=== PATIENT | female | born 1930 | race Caucasian/White ===

== ENCOUNTER 2017-02-21 14:49 | Inpatient (IN) | payer MEDICARE, BC, MEDICAID ==
[2017-02-21] MEDS ORDERED: Sodium Chloride 0.9% 10 ML Syringe FLUSH PRN ×2 (15:13→16:30)
[2017-02-21] MEDS ORDERED: Sodium Chloride 0.9% 1,000 ML IV ONE (15:14)
[2017-02-21] MEDS ORDERED: Ondansetron 4 MG/2 ML SDV IVPUSH ONE (15:15)
[2017-02-21] MEDS ORDERED: Pantoprazole 40 MG Vial IVPUSH ONE (15:15)
--- NOTE | 2017-02-21 15:19 | EDM.PDOC ---
ED HPI GENERAL MEDICAL PROBLEM - General Chief Complaint: Abdominal Pain Stated Complaint: DARK COLORED VOMIT Time Seen by Provider: 02/21/17 15:00 Source of Information: Reports: Retirement Records History Limitations: Reports: Other (patient has severe dementia and does not respond appropriately to questioning) - History of Present Illness INITIAL COMMENTS - FREE TEXT/NARRATIVE: 86-year-old female presents for evaluation and treatment of possible hematemesis. History is provided by group home records as the patient has severe dementia and is unable to verbalize appropriately. Reports that she's had 3 episodes of dark brown/red vomiting today. Last bowel movement was yesterday. Reportedly this was a small bowel movement. She has refused all food and medications today. The question if she has some abdominal discomfort. No fevers. Patient is a DNR/DNI. - Related Data Allergies Allergy/AdvReac Type Severity Reaction Status Date / Time hydrocodone Allergy Vomiting Verified 01/10/14 08:33 meperidine [From Demerol] Allergy Cannot Verified 02/21/17 15:11 Remember tramadol Allergy Dizziness Verified 01/10/14 08:33 Home Meds: Home Meds Acetaminophen [Tylenol Extra Strength] 500 mg PO Q4H PRN 01/10/14 [History] Ascorbic Acid [Vitamin C] 500 mg PO DAILY 01/10/14 [History] B2/Vit A,C & E/Lut/Zeaxanth/Mn [Icaps] 1 each PO DAILY 01/10/14 [History] Cholecalciferol (Vitamin D3) [Vitamin D3] 1,000 units PO DAILY 01/10/14 [History ] Cyanocobalamin (Vitamin B12) [Vitamin B12] 1,000 mcg PO DAILY 01/10/14 [History] Ferrous Sulfate [Ferosul] 325 mg PO BID 01/10/14 [History] Gabapentin 1 tab PO DAILY 01/10/14 [History] Propranolol [Inderal] 10 mg PO BID 01/10/14 [History] Citalopram Hydrobromide [Celexa] 20 mg PO BEDTIME 05/09/14 [History] Acetaminophen [Tylenol] 650 mg PO BID 02/21/17 [History] Memantine HCl [Namenda XR] 14 mg PO DAILY 02/21/17 [History] Ondansetron [Zofran ODT] 4 mg PO Q4H PRN 02/21/17 [History] Polyethylene Glycol 3350 [Miralax] 17 gram PO DAILY 02/21/17 [History] Ranitidine HCl [Zantac] 150 mg PO DAILY 02/21/17 [History] Sennosides/Docusate Sodium [Senna-Docusate Sodium] 8.6 - 50 mg PO BID 02/21/17 [ History] Social & Family History - Tobacco Use Smoking Status *Q: Never Smoker Second Hand Smoke Exposure: No - Alcohol Use Days Per Week of Alcohol Use: 0 - Recreational Drug Use Recreational Drug Use: No - Living Situation & Occupation Living situation: Reports: Extended Care Facility ED ROS GENERAL - Review of Systems Review Of Systems: See Below Constitutional: Denies: Fever GI/Abdominal: Reports: Hematemesis (reports natanael/brown emesis x 3 per group home), Nausea, Vomiting (x3 today). Denies: Diarrhea ED EXAM, GI/ABD - Physical Exam Exam: See Below Exam Limited By: Other (patient has severe dementia) General Appearance: Alert, Thin Throat/Mouth: Normal Inspection, Normal Voice, No Airway Compromise Respiratory/Chest: No Respiratory Distress, Lungs Clear, Normal Breath Sounds Cardiovascular: Normal Peripheral Pulses, Regular Rate, Rhythm, No Edema, No Murmur GI/Abdominal: Normal Bowel Sounds, Soft, Tenderness (minor tenderness to palpitation and then by the patient grimacing to the left lower quadrant.). No : Distention Neurological: Alert Psychiatric: Normal Affect, Normal Mood Skin Exam: Warm, Dry, Normal Color Course - Vital Signs Last Recorded V/S: Last Vital Signs Temp 36.1 C 02/21/17 15:03 Pulse 98 02/21/17 17:30 Resp 16 02/21/17 17:30 BP 137/78 02/21/17 17:30 Pulse Ox 97 02/21/17 17:30 - Orders/Labs/Meds Orders: Active Orders 24 hr Category Date Time Status Cardiac Monitoring [RC] . DIRECTED Care 02/21/17 15:17 Active Insert Stovall Catheter [Insert Urinary Catheter] [OM.PC] Care 02/21/17 16:05 Ordered Q24H Peripheral IV Care [RC] . DIRECTED Care 02/21/17 15:13 Active Urinary Catheter Assessment [RC] ASDIRECTED Care 02/21/17 16:22 Active Abdomen 2V AP Flat Upright [CR] Stat Exams 02/21/17 15:15 Taken Chest 1V Frontal [CR] Stat Exams 02/21/17 15:17 Taken CULTURE BLOOD [BC] Stat Lab 02/21/17 16:55 Ordered CULTURE URINE [RM] Stat Lab 02/21/17 16:53 Ordered Sodium Chloride 0.9% [Normal Saline] 1,000 ml Med 02/21/17 15:14 Active IV ONETIME Sodium Chloride 0.9% [Saline Flush] Med 02/21/17 15:13 Active 10 ml FLUSH ASDIRECTED PRN Sodium Chloride 0.9% [Saline Flush] Med 02/21/17 16:30 Active 10 ml FLUSH ONETIME PRN Blood Culture x2 Reflex Set [OM.PC] Stat Oth 02/21/17 16:55 Ordered Peripheral IV Insertion Adult [OM.PC] Routine Oth 02/21/17 15:12 Ordered Medication Orders Sodium Chloride (Normal Saline) 1,000 mls @ 100 mls/hr IV ONETIME ONE Stop: 02/22/17 01:13 Last Admin: 02/21/17 15:45 Dose: 100 mls/hr Sodium Chloride (Saline Flush) 10 ml FLUSH ASDIRECTED PRN PRN Reason: Keep Vein Open Last Admin: 02/21/17 15:00 Dose: 10 ml Sodium Chloride (Saline Flush) 10 ml FLUSH ONETIME PRN PRN Reason: IV FLUSH Labs: Laboratory Tests 02/21/17 02/21/17 02/21/17 Range/Units 15:00 15:00 15:00 WBC 13.96 H (3.98-10.04) K/mm3 RBC 3.94 L (3.98-5.22) M/mm3 Hgb 12.0 (11.2-15.7) gm/L Hct 35.6 (34.1-44.9) % MCV 90.4 (79.4-94.8) fl MCH 30.5 (25.6-32.2) pg MCHC 33.7 (32.2-35.5) g/dl RDW Std Deviation 41.5 (36.4-46.3) fL Plt Count 327 (182-369) K/mm3 MPV 10.7 (9.4-12.3) fl Neut % (Auto) 69.4 (34.0-71.1) % Lymph % (Auto) 22.8 (19.3-51.7) % [place] % (Auto) 7.2 (4.7-12.5) % Eos % (Auto) 0.3 L (0.7-5.8) Baso % (Auto) 0.1 (0.1-1.2) % Neut # (Auto) 9.69 H (1.56-6.13) K/mm3 Lymph # (Auto) 3.18 (1.18-3.74) K/mm3 [place] # (Auto) 1.00 H (0.24-0.36) K/mm3 Eos # (Auto) 0.04 (0.04-0.36) K/mm3 Baso # (Auto) 0.02 (0.01-0.08) K/mm3 Sodium 142 (136-145) mEq/L Potassium 4.3 (3.5-5.1) mEq/L Chloride 104 (98-107) mEq/L Carbon Dioxide 22 (21-32) mEq/L Anion Gap 20.3 H (5-15) BUN 23 H (7-18) mg/dL Creatinine 1.6 H (0.55-1.02) mg/dL Est Cr Clr Drug Dosing 21.65 mL/min Estimated GFR (MDRD) 31 (>60) mL/min BUN/Creatinine Ratio 14.4 (14-18) Glucose 147 H (83-115) mg/dL Lactic Acid (0.4-2.0) mmol/L Calcium 9.7 (8.5-10.1) mg/dL Total Bilirubin 1.0 (0.2-1.0) mg/dL AST 20 (15-37) U/L ALT 36 (14-59) U/L Alkaline Phosphatase 119 H (46-116) U/L C-Reactive Protein 2.2 H* (<1.0) mg/dL B-Natriuretic Peptide 181 H (0-100) pg/mL Total Protein 7.7 (6.4-8.2) g/dl Albumin 4.1 (3.4-5.0) g/dl Globulin 3.6 gm/dL Albumin/Globulin Ratio 1.1 (1-2) Urine Color (Yellow) Urine Appearance (Clear) Urine pH (5.0-8.0) Ur Specific [place] (1.005-1.030) Urine Protein (Negative) Urine Glucose (UA) (Negative) Urine Ketones (Negative) Urine Occult Blood (Negative) Urine Nitrite (Negative) Urine Bilirubin (Negative) Urine Urobilinogen (0.2-1.0) Ur Leukocyte Esterase (Negative) Urine RBC (0-5) /hpf Urine WBC (0-5) /hpf Ur Epithelial Cells Ur Squamous Epith Cells (0-5) /hpf Urine Bacteria (FEW) /hpf Urine Mucus (FEW) /hpf Ketones (0.0-0.3) mM 02/21/17 02/21/17 02/21/17 Range/Units 15:00 16:10 16:43 WBC (3.98-10.04) K/mm3 RBC (3.98-5.22) M/mm3 Hgb (11.2-15.7) gm/L Hct (34.1-44.9) % MCV (79.4-94.8) fl MCH (25.6-32.2) pg MCHC (32.2-35.5) g/dl RDW Std Deviation (36.4-46.3) fL Plt Count (182-369) K/mm3 MPV (9.4-12.3) fl Neut % (Auto) (34.0-71.1) % Lymph % (Auto) (19.3-51.7) % [place] % (Auto) (4.7-12.5) % Eos % (Auto) (0.7-5.8) Baso % (Auto) (0.1-1.2) % Neut # (Auto) (1.56-6.13) K/mm3 Lymph # (Auto) (1.18-3.74) K/mm3 [place] # (Auto) (0.24-0.36) K/mm3 Eos # (Auto) (0.04-0.36) K/mm3 Baso # (Auto) (0.01-0.08) K/mm3 Sodium (136-145) mEq/L Potassium (3.5-5.1) mEq/L Chloride (98-107) mEq/L Carbon Dioxide (21-32) mEq/L Anion Gap (5-15) BUN (7-18) mg/dL Creatinine (0.55-1.02) mg/dL Est Cr Clr Drug Dosing mL/min Estimated GFR (MDRD) (>60) mL/min BUN/Creatinine Ratio (14-18) Glucose (83-115) mg/dL Lactic Acid 2.4 H (0.4-2.0) mmol/L Calcium (8.5-10.1) mg/dL Total Bilirubin (0.2-1.0) mg/dL AST (15-37) U/L ALT (14-59) U/L Alkaline Phosphatase (46-116) U/L C-Reactive Protein (<1.0) mg/dL B-Natriuretic Peptide (0-100) pg/mL Total Protein (6.4-8.2) g/dl Albumin (3.4-5.0) g/dl Globulin gm/dL Albumin/Globulin Ratio (1-2) Urine Color Yellow (Yellow) Urine Appearance Cloudy H (Clear) Urine pH 7.5 (5.0-8.0) Ur Specific [place] 1.020 (1.005-1.030) Urine Protein 2+ H (Negative) Urine Glucose (UA) Negative (Negative) Urine Ketones Negative (Negative) Urine Occult Blood Trace-lysed H (Negative) Urine Nitrite Positive H (Negative) Urine Bilirubin Negative (Negative) Urine Urobilinogen 1.0 (0.2-1.0) Ur Leukocyte Esterase 1+ H (Negative) Urine RBC 0-5 (0-5) /hpf Urine WBC 30-40 H (0-5) /hpf Ur Epithelial Cells Not Reportable Ur Squamous Epith Cells 0-5 (0-5) /hpf Urine Bacteria Many H (FEW) /hpf Urine Mucus Few (FEW) /hpf Ketones 0.25 (0.0-0.3) mM Meds: Medications Generic Name Dose Route Start Last Admin Trade Name Freq PRN Reason Stop Dose Admin Sodium Chloride 1,000 mls @ 100 mls/hr 02/21/17 15:14 02/21/17 15:45 Normal Saline IV 02/22/17 01:13 100 mls/hr ONETIME ONE Administration Sodium Chloride 10 ml 02/21/17 15:13 02/21/17 15:00 Saline Flush FLUSH 10 ml ASDIRECTED PRN Administration Keep Vein Open Sodium Chloride 10 ml 02/21/17 16:30 Saline Flush FLUSH ONETIME PRN IV FLUSH Discontinued Medications Generic Name Dose Route Start Last Admin Trade Name [place] PRN Reason Stop Dose Admin Ceftriaxone Sodium 1 gm/ 100 mls @ 200 mls/hr 02/21/17 17:11 02/21/17 17:39 Sodium Chloride IV 02/21/17 17:40 200 mls/hr ONETIME ONE Administration Iopamidol 100 ml 02/21/17 16:30 Isovue-300 (61%) IVPUSH 02/21/17 16:31 ONETIME ONE Lorazepam 0.5 mg 02/21/17 15:22 02/21/17 15:47 Ativan IVPUSH 02/21/17 15:23 0.5 mg ONETIME ONE Administration Lorazepam 0.5 mg 02/21/17 16:28 02/21/17 16:36 Ativan IVPUSH 02/21/17 16:29 0.5 mg ONETIME ONE Administration Ondansetron HCl 4 mg 02/21/17 15:15 02/21/17 15:55 Zofran IVPUSH 02/21/17 15:16 4 mg ONETIME ONE Administration Pantoprazole Sodium 40 mg 02/21/17 15:15 02/21/17 15:50 Protonix Iv IVPUSH 02/21/17 15:16 40 mg ONETIME ONE Administration - Re-Assessments/Exams Free Text/Narrative Re-Assessment/Exam: 02/21/17 16:20 I spoke with the patient's daughter, Tali at [phone], regarding the patient. At this point it is not clear the exact etiology of her emesis this morning or if there was indeed blood. I reviewed the lab results. Labs: WBC elevated at 13.96, hgb is 12.0 and plts are 327 CRP is 2.2 lactic acid is 2.4 BNP is elevated at 181 We're waiting delay. Discussed further intervention. We could CT her abdomen and pelvis. I am unsure how she will handle this. She has receive 0.5 mg IV Ativan thus far which has significantly calmed her. We could put an NG tube and small amount of saline and confirmed if this was blood. She may require an EGD for further intervention. The daughter does not want her under any sedation. She would like us to proceed with the CT but does not want an NG tube or an EGD at this time. I will call her with an update we receive more information. 02/21/17 18:01 UA has 2+ protein , trace lysed blood, + itrites, 1+ leuks and many bacteria. I reviewed the CT results with the daughter. Her urine has returned and suggest infections. Urine culture sent. Lab was only able to obtain one blood culture. I feel that she has a urinary tract infection which was likely causing the vomiting. She has not vomited since entering the ER and therefore I am unable to confirm if she was vomiting blood earlier. Her daughter would like us to admit for a urinary tract infection and treat with fluids and antibiotics at this time. I spoke with Dr. Crouch regarding the patient, agrees to admission. Will admit to med/surg for dehydration and UTI. Departure - Departure Time of Disposition: 18:56 Disposition: Admitted As Inpatient 68 Condition: poor Clinical Impression: UTI, Urinary tract infectious disease, Dehydration - Discharge Information Forms: ED Department Discharge Additional Instructions: Patient admitted to med/surg for a UTI and dehydration. Dr. Crouch accepting. - My Orders Last 24 Hours: My Active Orders 02/21/17 15:12 Peripheral IV Insertion Adult [OM.PC] Routine 02/21/17 15:13 Peripheral IV Care [RC] . DIRECTED Sodium Chloride 0.9% [Saline Flush] 10 ml FLUSH ASDIRECTED PRN 02/21/17 15:14 Sodium Chloride 0.9% [Normal Saline] 1,000 ml IV ONETIME 02/21/17 15:15 Abdomen 2V AP Flat Upright [CR] Stat 02/21/17 15:17 Cardiac Monitoring [RC] . DIRECTED Chest 1V Frontal [CR] Stat 02/21/17 16:05 Insert Stovall Catheter [Insert Urinary Catheter] [OM.PC] Q24H 02/21/17 16:22 Urinary Catheter Assessment [RC] ASDIRECTED 02/21/17 16:30 Sodium Chloride 0.9% [Saline Flush] 10 ml FLUSH ONETIME PRN 02/21/17 16:53 CULTURE URINE [RM] Stat 02/21/17 16:55 CULTURE BLOOD [BC] Stat Blood Culture x2 Reflex Set [OM.PC] Stat - Assessment/Plan Last 24 Hours: My Active Orders 02/21/17 15:12 Peripheral IV Insertion Adult [OM.PC] Routine 02/21/17 15:13 Peripheral IV Care [RC] . DIRECTED Sodium Chloride 0.9% [Saline Flush] 10 ml FLUSH ASDIRECTED PRN 02/21/17 15:14 Sodium Chloride 0.9% [Normal Saline] 1,000 ml IV ONETIME 02/21/17 15:15 Abdomen 2V AP Flat Upright [CR] Stat 02/21/17 15:17 Cardiac Monitoring [RC] . DIRECTED Chest 1V Frontal [CR] Stat 02/21/17 16:05 Insert Stovall Catheter [Insert Urinary Catheter] [OM.PC] Q24H 02/21/17 16:22 Urinary Catheter Assessment [RC] ASDIRECTED 02/21/17 16:30 Sodium Chloride 0.9% [Saline Flush] 10 ml FLUSH ONETIME PRN 02/21/17 16:53 CULTURE URINE [RM] Stat 02/21/17 16:55 CULTURE BLOOD [BC] Stat Blood Culture x2 Reflex Set [OM.PC] Stat
[2017-02-21] MEDS ORDERED: LORazepam 2 MG/ML MDV IVPUSH ONE ×2 (15:22→16:28)
[2017-02-21] MEDS ORDERED: Iopamidol 612 MG/ML 100 ML Bottle IVPUSH ONE (16:30)
[2017-02-21] MEDS ORDERED: cefTRIAXone 1 GM in Sodium Chloride 0.9% 100 ML IV ONE (17:11)
--- NOTE | 2017-02-21 17:19 | CT ---
CT abdomen and pelvis Technique: Multiple axial sections were obtained from above the dome of the diaphragm inferiorly through the pubic symphysis. Intravenous contrast was utilized. Delayed images were also obtained through the abdomen and pelvis. No oral contrast has been given. Findings: Moderately large hiatal hernia is seen. Slight interstitial fibrosis is noted within the left lung base. Cyst identified within the left lobe of the liver measuring approximately 3.7 cm. Several very minimal low density areas are seen within the right lobe believed to represent very minimal cysts. Spleen is normal. Adrenal glands show no nodule. Cyst identified within the left kidney measuring 7.6 cm. Several smaller cysts are also seen within both kidneys. 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 Delayed images shows contrast within the bladder as well as within nondilated ureters. Pancreas is within normal limits but atrophic. Aorta shows atherosclerotic change which continues into the iliac vessels with no aneurysm. Gallbladder shows no calcified gallstones. No retroperitoneal adenopathy or mesenteric abnormalities are seen. No pelvic mass or adenopathy is seen. Appendix not visualized with certainty. No inflammatory change or free fluid is seen. Bone window settings were reviewed which appear within normal limits for the patient's age. Impression: 1. Cyst within the liver. Cysts within both kidneys. 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 2. Moderately large hiatal hernia. 3. Other incidental findings. Nothing acute is appreciated on CT study of the abdomen and pelvis. Diagnostic code #2
[2017-02-21] MEDS ORDERED: MEMANTINE 14 MG PO SCH (20:15)
--- NOTE | 2017-02-21 20:17 | PCM.HP ---
H&P History of Present Illness - General Date of Service: 02/21/17 Source of Information: Provider History Limitations: Reports: No Limitations - History of Present Illness Initial Comments - Free Text/Narative: 86 year old SNF resident apparently has had at least three episodes of N/V, can not exclude hematemesis. No apparent fever or chills were noted; appears to have associated with abdominal discomfort. Information obtained using EMR, patient could not provide additional information. There has been a lack of appetite. A change in mental status with increasing lethargy. Daughter of the patient requested minimal approach with treatment of UTI and dehydration for now. Does not want a general surgery consult for now re: GI bleed. Onset of Symptoms: Reports: Sudden Symptom Onset Date: 02/21/17 Duration of Symptoms: Reports: Hour(s):, Getting Worse Location: Reports: Abdomen Severity: Moderate Improves with: Reports: None Worsens with: Reports: None Associated Symptoms: Reports: Loss of Appetite, Nausea/Vomiting, Weakness - Related Data Allergies/Adverse Reactions: Allergies Allergy/AdvReac Type Severity Reaction Status Date / Time hydrocodone Allergy Vomiting Verified 01/10/14 08:33 meperidine [From Demerol] Allergy Cannot Verified 02/21/17 15:11 Remember tramadol Allergy Dizziness Verified 01/10/14 08:33 Home Medications: Home Meds Acetaminophen [Tylenol Extra Strength] 500 mg PO Q4H PRN 01/10/14 [History] Ascorbic Acid [Vitamin C] 500 mg PO DAILY 01/10/14 [History] B2/Vit A,C & E/Lut/Zeaxanth/Mn [Icaps] 1 each PO DAILY 01/10/14 [History] Cholecalciferol (Vitamin D3) [Vitamin D3] 1,000 units PO DAILY 01/10/14 [History ] Cyanocobalamin (Vitamin B12) [Vitamin B12] 1,000 mcg PO DAILY 01/10/14 [History] Ferrous Sulfate [Ferosul] 325 mg PO BID 01/10/14 [History] Gabapentin 1 tab PO DAILY 01/10/14 [History] Propranolol [Inderal] 10 mg PO BID 01/10/14 [History] Citalopram Hydrobromide [Celexa] 20 mg PO BEDTIME 05/09/14 [History] Acetaminophen [Tylenol] 650 mg PO BID 02/21/17 [History] Memantine HCl [Namenda XR] 14 mg PO DAILY 02/21/17 [History] Ondansetron [Zofran ODT] 4 mg PO Q4H PRN 02/21/17 [History] Polyethylene Glycol 3350 [Miralax] 17 gram PO DAILY 02/21/17 [History] Ranitidine HCl [Zantac] 150 mg PO DAILY 02/21/17 [History] Sennosides/Docusate Sodium [Senna-Docusate Sodium] 8.6 - 50 mg PO BID 02/21/17 [ History] Past Medical History HEENT History: Reports: Macular Degeneration Cardiovascular History: Reports: Hypertension Gastrointestinal History: Reports: GERD Genitourinary History: Reports: Chronic Renal Insuffiency Psychiatric History: Reports: Anxiety, Dementia, Depression, Other (See Below) Other Psychiatric History: no behavioral disturbances. Hematologic History: Reports: Anemia - Past Surgical History GI Surgical History: Reports: Other (See Below) Other GI Surgeries/Procedures: colitis Social & Family History - Tobacco Use Smoking Status *Q: Never Smoker Second Hand Smoke Exposure: No - Alcohol Use Days Per Week of Alcohol Use: 0 - Recreational Drug Use Recreational Drug Use: No - Living Situation & Occupation Living situation: Reports: Extended Care Facility H&P Review of Systems - Review of Systems: Review Of Systems: See Below General: Reports: Weakness HEENT: Reports: No Symptoms Pulmonary: Reports: No Symptoms Cardiovascular: Reports: Lightheadedness Gastrointestinal: Reports: Abdominal Pain, Decreased Appetite, Nausea, Vomiting Genitourinary: Reports: No Symptoms Musculoskeletal: Reports: No Symptoms Skin: Reports: No Symptoms Psychiatric: Reports: No Symptoms Neurological: Reports: No Symptoms Hematologic/Lymphatic: Reports: No Symptoms Immunologic: Reports: No Symptoms Exam - Exam Exam: See Below - Vital Signs Vital Signs: Last Vital Signs Temp 36.1 C 02/21/17 15:03 Pulse 98 02/21/17 17:30 Resp 16 02/21/17 17:30 BP 137/78 02/21/17 17:30 Pulse Ox 97 02/21/17 17:30 Weight: 63.503 kg - Exam Quality Assessment: Supplemental Oxygen, DVT Prophylaxis General: Sedated HEENT: Nares Patent, Normal Nasal Septum, Pupils Equal, Pupils Reactive, PERRLA Neck: Trachea Midline Lungs: Normal Respiratory Effort, Decreased Breath Sounds Cardiovascular: Regular Rate Abdomen: Normal Bowel Sounds, Soft (Female) Exam: Deferred Rectal (Female) Exam: Deferred Back Exam: Normal Inspection Extremities: Normal Pulses Skin: Warm Neurological: Cranial Nerves Intact Neuro Extensive - Motor, Sensory, Reflexes: CN II-XII Intact - Patient Data Result Diagrams: 02/21/17 15:00 02/21/17 15:00 *Q Meaningful Use (ADM) - VTE *Q VTE Criteria *Q: - Stroke *Q Stroke Criteria *Q: - AMI *Q AMI Criteria *Q: - Problem List (1) Dehydration SNOMED Code(s): 46090600 ICD Code: E86.0 - DEHYDRATION Status: Acute Priority: High Current Visit: Yes (2) UTI, Urinary tract infectious disease SNOMED Code(s): 20414414 ICD Code: N39.0 - URINARY TRACT INFECTION, SITE NOT SPECIFIED Status: Acute Priority: Medium Current Visit: Yes (3) Hyperkalemia SNOMED Code(s): 01520592 ICD Code: E87.5 - HYPERKALEMIA Status: Acute Priority: High Current Visit: No (4) Renal failure syndrome SNOMED Code(s): 50730262 ICD Code: N19 - UNSPECIFIED KIDNEY FAILURE Status: Acute Priority: High Current Visit: No (5) Dementia SNOMED Code(s): 14370758 ICD Code: F03.90 - UNSPECIFIED DEMENTIA WITHOUT BEHAVIORAL DISTURBANCE Status: Chronic Priority: Medium Current Visit: No Onset Date: 05/09/14 Problem List Initiated/Reviewed/Updated: Yes Orders Last 24hrs: Active Orders 24 hr Category Date Time Status Antiembolic Devices [RC] PER UNIT ROUTINE Care 02/21/17 20:13 Ordered Aspiration Precautions [RC] ASDIRECTED Care 02/21/17 20:12 Ordered Bedrest [RC] ASDIRECTED Care 02/21/17 20:12 Ordered Vital Signs [RC] PER UNIT ROUTINE Care 02/21/17 20:11 Ordered NPO [Nothing Per Oral Diet] [DIET] Diet 02/21/17 Dinner Ordered CBC W/O DIFF,HEMOGRAM [HEME] MOTH@0700 Lab 02/23/17 07:00 Ordered CBC W/O DIFF,HEMOGRAM [HEME] MOTH@0700 Lab 02/27/17 07:00 Ordered CBC W/O DIFF,HEMOGRAM [HEME] MOTH@0700 Lab 03/02/17 07:00 Ordered CBC W/O DIFF,HEMOGRAM [HEME] MOTH@0700 Lab 03/06/17 07:00 Ordered CBC W/O DIFF,HEMOGRAM [HEME] MOTH@0700 Lab 03/09/17 07:00 Ordered CBC W/O DIFF,HEMOGRAM [HEME] MOTH@0700 Lab 03/13/17 07:00 Ordered Citalopram Hydrobromide [Celexa] Med 02/21/17 21:00 Ordered 20 mg PO BEDTIME Enoxaparin [Lovenox] Med 02/22/17 09:00 Ordered 30 mg SUBCUT DAILY Ferrous Sulfate Med 02/21/17 21:00 Ordered 325 mg PO BID Gabapentin [Neurontin] Med 02/22/17 09:00 Ordered 1 tab PO DAILY Memantine HCl Med 02/21/17 20:15 Ordered 14 mg PO DAILY Pantoprazole [ProTONIX IV] Med 02/21/17 20:15 Ordered 40 mg IVPUSH Q12H Propranolol [Inderal] Med 02/21/17 21:00 Ordered 10 mg PO BID MILO Hose [Antiembolic Hose] [OM.PC] Routine Oth 02/21/17 20:13 Ordered Code Status [Resuscitation Status] Routine Resus Stat 02/21/17 20:12 Ordered Medication Orders Enoxaparin Sodium (Lovenox) 30 mg SUBCUT DAILY ANKUR Ferrous Sulfate (Ferrous Sulfate) 325 mg PO BID ANKUR Gabapentin (Neurontin) mg PO DAILY ANKUR Sodium Chloride (Normal Saline) 1,000 mls @ 100 mls/hr IV ONETIME ONE Stop: 02/22/17 01:13 Last Admin: 02/21/17 15:45 Dose: 100 mls/hr Non-Formulary Medication (Memantine Hcl) 14 mg PO DAILY ANKUR Non-Formulary Medication (Citalopram Hydrobromide [Celexa]) 20 mg PO BEDTIME ANKUR Pantoprazole Sodium (Protonix Iv) 40 mg IVPUSH Q12H ANKUR Propranolol HCl (Inderal) 10 mg PO BID ANKUR Sodium Chloride (Saline Flush) 10 ml FLUSH ASDIRECTED PRN PRN Reason: Keep Vein Open Last Admin: 02/21/17 15:00 Dose: 10 ml Sodium Chloride (Saline Flush) 10 ml FLUSH ONETIME PRN PRN Reason: IV FLUSH Assessment/Plan Comment:: Impression: AMS with history of dementia AUTI Dehydration CKD, stage III-IV Abdominal pain with episodes of nausea, emesis is unknown, presumed to be coffee ground based on history. Plan: Continue IVF Protonix NGT if needed, will keep NPO except meds and ice chips Declines Gen Surg eval at this time Continue Rocephin UC/BC are pending SW/PT/OT as tolerated DVT/GI prophylaxis DNR/DNI LOS expected <96 hours
[2017-02-21] MEDS ORDERED: Acetaminophen Susp 325 MG/10.15 ML UD Cup PO PRN (20:28)
[2017-02-21] MEDS ORDERED: Ondansetron 4 MG/2 ML SDV IVPUSH PRN (20:39)
[2017-02-21] MEDS ORDERED: Promethazine 12.5 MG in Sodium Chloride 0.9% 50 ML IV PRN (20:40)
[2017-02-21] MEDS ORDERED: Sodium Chloride 0.9% 1,000 ML IV SCH (20:45)
[2017-02-21] MEDS: Pantoprazole 40 MG Vial IVPUSH SCH (21:00)
[2017-02-21] MEDS: Ferrous Sulfate 325 MG Tab PO SCH (22:28)
[2017-02-21] MEDS: Citalopram 20 MG Tab PO SCH (22:28)
[2017-02-21] MEDS: Propranolol 10 MG Tab PO SCH (22:28)
[2017-02-22] MEDS: Sodium Chloride 0.9% 1,000 ML IV SCH ×2 (02:38→15:26)
--- NOTE | 2017-02-22 08:07 | CR ---
Abdomen: Supine and decubitus views of the abdomen were obtained. Comparison: Previous abdominal x-ray of 05/11/14. Bowel gas pattern is normal. Mild compression deformity is noted within L4 which is an interval change from prior abdominal x-ray. Calcifications within the pelvis are likely due to phleboliths. Bony structures are osteoporotic. Impression: 1. Mild compression deformity of L4 which is an interval change from prior abdominal x-ray. 2. Osteopenia. Normal-appearing bowel gas pattern with no free air. Diagnostic code #3
--- NOTE | 2017-02-22 08:07 | CR ---
Chest: Portable view of the chest was obtained. Comparison: Previous chest x-ray of 05/13/14. Heart size is slightly prominent with left ventricular configuration. Mild tortuosity of the thoracic aorta is seen. Lungs are clear. Mild scoliosis is present within the spine. Bony structures are osteopenic. Impression: 1. Incidental findings as noted above. Nothing acute is appreciated on portable chest x-ray. Diagnostic code #2
--- NOTE | 2017-02-22 08:52 | PCM.PN ---
- General Info Date of Service: 02/22/17 Subjective Update: Follow Up Functional Status: Reports: pain controlled, urinating. Denies: ambulating, new symptoms - Review of Systems General: Denies: Fever, Chills HEENT: Denies: contact lenses Pulmonary: Denies: shortness of breath, pleuritic chest pain Cardiovascular: Denies: No Symptoms, Chest Pain, Palpitations Gastrointestinal: Reports: Difficulty swallowing (has underlying dysphagia). Denies: Abdominal pain, Nausea, Vomiting Genitourinary: Reports: no symptoms Musculoskeletal: Reports: no symptoms Skin: Denies: cyanosis, diaphoresis, bruising, pruritis Neurological: Reports: Confusion, Pre-Existing Deficit. Denies: Difficulty Walking, Weakness, Gait Disturbance Psychiatric: Denies: depression, anxiety, agitation Systems Review Comment:: No overnight or acute issues. Her UA cx shows a GNR organism. She has no acute issues. She is hypotensive this am with a BP of 85/46 mmHg. She is afebrile. - Patient Data Vitals - most recent: Last Vital Signs Temp 36.7 C 02/22/17 08:26 Pulse 59 L 02/22/17 08:26 Resp 14 02/22/17 08:26 BP 85/46 L 02/22/17 08:26 Pulse Ox 100 02/22/17 08:26 Weight - most recent: 47.763 kg I&O - last 24 hours: Intake & Output 02/21/17 02/22/17 02/22/17 22:59 06:59 14:59 Intake Total 1122 Balance 1122 Lab Results last 24 hrs: Laboratory Results - last 24 hr 02/21/17 02/22/17 Range/Units 22:45 05:57 Sodium 142 (136-145) mEq/L Potassium 3.8 (3.5-5.1) mEq/L Chloride 109 H (98-107) mEq/L Carbon Dioxide 22 (21-32) mEq/L Anion Gap 14.8 (5-15) BUN 20 H (7-18) mg/dL Creatinine 1.3 H (0.55-1.02) mg/dL Est Cr Clr Drug Dosing 24.29 mL/min Estimated GFR (MDRD) 39 (>60) mL/min BUN/Creatinine Ratio 15.4 (14-18) Glucose 102 (83-115) mg/dL Calcium 8.4 L (8.5-10.1) mg/dL Magnesium 1.9 (1.8-2.4) mg/dl Troponin I < 0.017 (0.00-0.056) ng/mL C-Reactive Protein 1.8 H* (<1.0) mg/dL Triglycerides 145 (<150) mg/dL Cholesterol 129 (<200) mg/dL LDL Cholesterol Direct 68 (<100) mg/dL HDL Cholesterol 44.0 (40-59) mg/dL TSH 3rd Generation 1.199 (0.358-3.74) uIU/mL MRSA (PCR) Negative Med Orders - Current: Current Medications Acetaminophen (Tylenol Solution) 650 mg PO Q6H PRN PRN Reason: Fever Citalopram Hydrobromide (Celexa) 20 mg PO BEDTIME [facility] Last Admin: 02/21/17 22:28 Dose: Not Given Enoxaparin Sodium (Lovenox) 30 mg SUBCUT DAILY [facility] Ferrous Sulfate (Ferrous Sulfate) 325 mg PO BID [facility] Last Admin: 02/21/17 22:28 Dose: Not Given Gabapentin (Neurontin) 600 mg PO DAILY [facility] Ceftriaxone Sodium 1 gm/ (Sodium Chloride) 100 mls @ 200 mls/hr IV Q24H [facility] Promethazine HCl 12.5 mg/ (Sodium Chloride) 50.5 mls @ 100 mls/hr IV Q6H PRN PRN Reason: Nausea/Vomiting Sodium Chloride (Normal Saline) 1,000 mls @ 75 mls/hr IV ASDIRECTED [facility] Last Admin: 02/22/17 02:38 Dose: 75 mls/hr Memantine Extended (Release 14mg) 14 mg PO DAILY [facility] Last Admin: 02/21/17 22:27 Dose: Not Given Ondansetron HCl (Zofran) 4 mg IVPUSH Q8H PRN PRN Reason: Nausea/Vomiting Pantoprazole Sodium (Protonix Iv) 40 mg IVPUSH Q12H [facility] Last Admin: 02/21/17 21:00 Dose: 40 mg Propranolol HCl (Inderal) 10 mg PO BID [facility] Last Admin: 02/21/17 22:28 Dose: Not Given Sodium Chloride (Saline Flush) 10 ml FLUSH ASDIRECTED PRN PRN Reason: Keep Vein Open Last Admin: 02/21/17 15:00 Dose: 10 ml Discontinued Medications Sodium Chloride (Normal Saline) 1,000 mls @ 100 mls/hr IV ONETIME ONE Stop: 02/22/17 01:13 Last Admin: 02/21/17 15:45 Dose: 100 mls/hr Ceftriaxone Sodium 1 gm/ (Sodium Chloride) 100 mls @ 200 mls/hr IV ONETIME ONE Stop: 02/21/17 17:40 Last Admin: 02/21/17 17:39 Dose: 200 mls/hr Sodium Chloride (Normal Saline) 800 mls @ 100 mls/hr IV ASDIRECTED [facility] Stop: 02/21/17 23:13 Iopamidol (Isovue-300 (61%)) 100 ml IVPUSH ONETIME ONE Stop: 02/21/17 16:31 Last Admin: 02/21/17 20:19 Dose: Not Given Lorazepam (Ativan) 0.5 mg IVPUSH ONETIME ONE Stop: 02/21/17 15:23 Last Admin: 02/21/17 15:47 Dose: 0.5 mg Lorazepam (Ativan) 0.5 mg IVPUSH ONETIME ONE Stop: 02/21/17 16:29 Last Admin: 02/21/17 16:36 Dose: 0.5 mg Ondansetron HCl (Zofran) 4 mg IVPUSH ONETIME ONE Stop: 02/21/17 15:16 Last Admin: 02/21/17 15:55 Dose: 4 mg Pantoprazole Sodium (Protonix Iv) 40 mg IVPUSH ONETIME ONE Stop: 02/21/17 15:16 Last Admin: 02/21/17 15:50 Dose: 40 mg Sodium Chloride (Saline Flush) 10 ml FLUSH ONETIME PRN PRN Reason: IV FLUSH - Exam Quality Assessment: No: supplemental oxygen General: alert, no acute distress HEENT: Pupils equal, Pupils reactive Neck: supple, trachea midline, no JVD, no thyromegaly Lungs: Clear to auscultation, Normal respiratory effort, Decreased breath sounds Cardiovascular: Regular Rate Abdomen: bowel sounds present, soft, no tenderness, no distension (Female) Exam: Deferred Back Exam: Normal Inspection, Decreased Range of Motion Extremities: no edema, normal pulses, no tenderness/swelling, no clubbing, no cyanosis, no calf tenderness Peripheral Pulses: 2+: Dorsalis Pedis (L), Dorsalis Pedis (R) Skin: warm, dry, intact Neurological: no new focal deficit Psy/Mental Status: alert, normal affect, normal mood - Problem List Review Problem List Initiated/Reviewed/Updated: Yes - Plan Plan:: Assessment/Plan: Acute: AMS with history of Severe Dementia - She seems to be at baseline AUTI - Risk factor: Urinary Incontinence - UA cx pos for GNR - She is responding to treatment - CRP is 1.7 (2.2) - Continue current treatment with IV Rocephin Moderately Large Hiatal Hernia - She is currently on IV Protonix BID - She was on H2B for home maintenance, will resume Hypotension - 85/46 mmHg this am - She appears clinically stable CT scan Abdominal/Pelvic Findings - Cysts in Liver and Kidneys Resolved: S/p Dehydration S/p Coffee Ground Emesis with Gastritis/GERD as risk factors, family refused any further work up to include possible EGD Chronic: HTN CKD, Stage III Anxiety and Depression JIN Hx/o Gastritis Severe Dementia Urinary Incontinence Non-Verbal Hx/o Gastritis/GERD Vit D Deficiency Constipation Dysphagia 3 Plan: She appears clinically stable and comfortable [employer]ER eval for swallowing Resume po meal after above eval Family declines Gen Surg eval at this time Continue current treatment Repeat manual BP, if remains low consider volume resuscitative measures BB with parameters PT/OT as tolerated DVT/GI prophylaxis Code status: DNR/DNI D/c pending identification of UA culture and sensitivity
[2017-02-22] MEDS ORDERED: Sodium Chloride 0.9% 10 ML Syringe FLUSH PRN (09:41)
[2017-02-22] MEDS ORDERED: Iopamidol 612 MG/ML 100 ML Bottle IVPUSH ONE (09:45)
[2017-02-22] MEDS: Enoxaparin 30 MG/0.3 ML Syringe SUBCUT SCH (10:01)
[2017-02-22] MEDS: Pantoprazole 40 MG Vial IVPUSH SCH ×2 (10:01→20:31)
[2017-02-22] MEDS: Ferrous Sulfate 325 MG Tab PO SCH ×3 (10:02→20:40)
[2017-02-22] MEDS: Propranolol 10 MG Tab PO SCH ×3 (10:02→20:40)
[2017-02-22] MEDS: Gabapentin 600 MG Tab PO SCH ×2 (10:02→10:33)
[2017-02-22] MEDS: cefTRIAXone 1 GM in Sodium Chloride 0.9% 100 ML IV SCH (15:25)
[2017-02-22] MEDS: Citalopram 20 MG Tab PO SCH (20:40)
[2017-02-23] MEDS: Sodium Chloride 0.9% 1,000 ML IV SCH ×2 (04:33→17:50)
--- NOTE | 2017-02-23 05:11 | PCM.PN ---
- General Info Date of Service: 02/23/17 Subjective Update: Follow Up Functional Status: Reports: pain controlled, urinating. Denies: tolerating diet , ambulating, new symptoms - Review of Systems General: Denies: Fever, Chills HEENT: Reports: no symptoms Pulmonary: Denies: shortness of breath Cardiovascular: Denies: Chest Pain Gastrointestinal: Denies: Abdominal pain, Nausea, Vomiting Genitourinary: Reports: no symptoms Musculoskeletal: Reports: no symptoms Skin: Reports: no symptoms Neurological: Reports: Confusion, Difficulty Walking, Weakness, Gait Disturbance Psychiatric: Denies: depression, anxiety, agitation, hallucinations Systems Review Comment:: No overnight or acute issues. She is refusing all her pills, and [employer]PER[employer]ENT eval. She carries a severe form of dementia. She is afebrile w/o leukocytosis. Her UA shows E. coli sensitive to Rocephin. - Patient Data Vitals - most recent: Last Vital Signs Temp 36.8 C 02/23/17 02:05 Pulse 66 02/23/17 02:05 Resp 18 02/23/17 02:05 BP 121/53 L 02/23/17 02:05 Pulse Ox 97 02/23/17 02:05 Weight - most recent: 47.4 kg I&O - last 24 hours: Intake & Output 02/22/17 02/22/17 02/23/17 14:59 22:59 06:59 Intake Total 1000 966 Balance 1000 966 Lab Results last 24 hrs: Laboratory Results - last 24 hr 02/22/17 Range/Units 05:57 Sodium 142 (136-145) mEq/L Potassium 3.8 (3.5-5.1) mEq/L Chloride 109 H (98-107) mEq/L Carbon Dioxide 22 (21-32) mEq/L Anion Gap 14.8 (5-15) BUN 20 H (7-18) mg/dL Creatinine 1.3 H (0.55-1.02) mg/dL Est Cr Clr Drug Dosing 24.29 mL/min Estimated GFR (MDRD) 39 (>60) mL/min BUN/Creatinine Ratio 15.4 (14-18) Glucose 102 (83-115) mg/dL Calcium 8.4 L (8.5-10.1) mg/dL Magnesium 1.9 (1.8-2.4) mg/dl Troponin I < 0.017 (0.00-0.056) ng/mL C-Reactive Protein 1.8 H* (<1.0) mg/dL Triglycerides 145 (<150) mg/dL Cholesterol 129 (<200) mg/dL LDL Cholesterol Direct 68 (<100) mg/dL HDL Cholesterol 44.0 (40-59) mg/dL TSH 3rd Generation 1.199 (0.358-3.74) uIU/mL Med Orders - Current: Current Medications Acetaminophen (Tylenol Solution) 650 mg PO Q6H PRN PRN Reason: Fever Citalopram Hydrobromide (Celexa) 20 mg PO BEDTIME [facility] Last Admin: 02/22/17 20:40 Dose: Not Given Enoxaparin Sodium (Lovenox) 30 mg SUBCUT DAILY [facility] Last Admin: 02/22/17 10:01 Dose: 30 mg Famotidine (Pepcid) 20 mg PO DAILY [facility] Ferrous Sulfate (Ferrous Sulfate) 325 mg PO BID [facility] Last Admin: 02/22/17 20:40 Dose: Not Given Gabapentin (Neurontin) 600 mg PO DAILY [facility] Last Admin: 02/22/17 10:33 Dose: Not Given Ceftriaxone Sodium 1 gm/ (Sodium Chloride) 100 mls @ 200 mls/hr IV Q24H [facility] Last Admin: 02/22/17 15:25 Dose: 200 mls/hr Promethazine HCl 12.5 mg/ (Sodium Chloride) 50.5 mls @ 100 mls/hr IV Q6H PRN PRN Reason: Nausea/Vomiting Sodium Chloride (Normal Saline) 1,000 mls @ 75 mls/hr IV ASDIRECTED [facility] Last Admin: 02/23/17 04:33 Dose: 75 mls/hr Memantine Extended (Release 14mg) 14 mg PO DAILY [facility] Last Admin: 02/21/17 22:27 Dose: Not Given Ondansetron HCl (Zofran) 4 mg IVPUSH Q8H PRN PRN Reason: Nausea/Vomiting Pantoprazole Sodium (Protonix Iv) 40 mg IVPUSH Q12H [facility] Last Admin: 02/22/17 20:31 Dose: 40 mg Propranolol HCl (Inderal) 10 mg PO BID [facility] Last Admin: 02/22/17 20:40 Dose: Not Given Sodium Chloride (Saline Flush) 10 ml FLUSH ASDIRECTED PRN PRN Reason: Keep Vein Open Last Admin: 02/21/17 15:00 Dose: 10 ml Discontinued Medications Sodium Chloride (Normal Saline) 1,000 mls @ 100 mls/hr IV ONETIME ONE Stop: 02/22/17 01:13 Last Admin: 02/21/17 15:45 Dose: 100 mls/hr Ceftriaxone Sodium 1 gm/ (Sodium Chloride) 100 mls @ 200 mls/hr IV ONETIME ONE Stop: 02/21/17 17:40 Last Admin: 02/21/17 17:39 Dose: 200 mls/hr Sodium Chloride (Normal Saline) 800 mls @ 100 mls/hr IV ASDIRECTED [facility] Stop: 02/21/17 23:13 Iopamidol (Isovue-300 (61%)) 100 ml IVPUSH ONETIME ONE Stop: 02/21/17 16:31 Last Admin: 02/21/17 20:19 Dose: Not Given Iopamidol (Isovue-300 (61%)) 100 ml IVPUSH ONETIME ONE Stop: 02/22/17 09:46 Last Admin: 02/21/17 17:00 Dose: 80 ml Lorazepam (Ativan) 0.5 mg IVPUSH ONETIME ONE Stop: 02/21/17 15:23 Last Admin: 02/21/17 15:47 Dose: 0.5 mg Lorazepam (Ativan) 0.5 mg IVPUSH ONETIME ONE Stop: 02/21/17 16:29 Last Admin: 02/21/17 16:36 Dose: 0.5 mg Ondansetron HCl (Zofran) 4 mg IVPUSH ONETIME ONE Stop: 02/21/17 15:16 Last Admin: 02/21/17 15:55 Dose: 4 mg Pantoprazole Sodium (Protonix Iv) 40 mg IVPUSH ONETIME ONE Stop: 02/21/17 15:16 Last Admin: 02/21/17 15:50 Dose: 40 mg Sodium Chloride (Saline Flush) 10 ml FLUSH ONETIME PRN PRN Reason: IV FLUSH Sodium Chloride (Saline Flush) 10 ml FLUSH ONETIME PRN PRN Reason: IV FLUSH Stop: 02/22/17 11:00 Last Admin: 02/21/17 17:05 Dose: 10 ml - Exam General: alert, no acute distress HEENT: Pupils equal, Pupils reactive Lungs: Clear to auscultation, Normal respiratory effort Cardiovascular: Regular Rate, Regular Rhythm Abdomen: bowel sounds present, soft, no tenderness, no distension (Female) Exam: Deferred Back Exam: Normal Inspection, Decreased Range of Motion Extremities: no edema, normal pulses, no tenderness/swelling, no clubbing, no cyanosis, no calf tenderness Peripheral Pulses: 2+: Dorsalis Pedis (L), Dorsalis Pedis (R) Skin: warm, dry, intact Neurological: no new focal deficit Psy/Mental Status: alert, normal affect, normal mood - Problem List Review Problem List Initiated/Reviewed/Updated: Yes - My Orders Last 24 Hours: My Active Orders 02/22/17 11:59 Consult to Speech Language Pathology [[employer]PER[employer]ENDENT Evaluation and Treatment] [CONS] Routine 02/23/17 09:00 Famotidine [Pepcid] 20 mg PO DAILY - Plan Plan:: Assessment/Plan: Acute: AMS with history of Severe Dementia - She seems to be at baseline AUTI - Risk factor: Urinary Incontinence - UA cx pos for E. coli - She is responding to treatment - CRP is 1.7 (2.2) - Continue current treatment with IV Rocephin Moderately Large Hiatal Hernia - She is currently on IV Protonix BID - She was on H2B for home maintenance, will resume Anemia - Hgb 12 ---> 9.4 - This could be 2/2 Hemodilution - Again, family is refusing further GI work up CT scan Abdominal/Pelvic Findings - Cysts in Liver and Kidneys Resolved: S/p Dehydration S/p Coffee Ground Emesis with Gastritis/GERD as risk factors, family refused any further work up to include possible EGD S/p Hypotension - 85/46 mmHg this am - She appears clinically stable Chronic: HTN CKD, Stage III Anxiety and Depression JIN Hx/o Gastritis Severe Dementia Urinary Incontinence Non-Verbal Hx/o Gastritis/GERD Vit D Deficiency Constipation Dysphagia 3 Plan: She remains clinically stable and comfortable [employer]PER[employer]ENDENT eval for swallowing Resume po meal after above eval Continue current treatment PT/OT as tolerated DVT/GI prophylaxis Code status: DNR/DNI Possible discharge in 1-2 days
[2017-02-23] MEDS: Pantoprazole 40 MG Vial IVPUSH SCH ×2 (08:42→20:02)
[2017-02-23] MEDS: Enoxaparin 30 MG/0.3 ML Syringe SUBCUT SCH (08:43)
[2017-02-23] MEDS: Propranolol 10 MG Tab PO SCH ×2 (08:43→20:02)
[2017-02-23] MEDS: Ferrous Sulfate 325 MG Tab PO SCH ×2 (08:43→20:03)
[2017-02-23] MEDS: Gabapentin 600 MG Tab PO SCH (08:43)
[2017-02-23] MEDS: Famotidine 20 MG Tab PO SCH (08:43)
[2017-02-23] MEDS ORDERED: Potassium Chloride 10% 20 MEQ/15 ML Soln 30 ML UD Cup PO SCH (09:00)
[2017-02-23] MEDS ORDERED: Magnesium Sulfate/Water 2 GM in Premix Bag 1 BAG IV ONE (09:00)
[2017-02-23] MEDS: Potassium Chloride 10 MEQ in Premix Bag 1 BAG IV SCH ×2 (13:35→16:23)
[2017-02-23] MEDS: cefTRIAXone 1 GM in Sodium Chloride 0.9% 100 ML IV SCH (16:03)
[2017-02-23] MEDS: Citalopram 20 MG Tab PO SCH (20:03)
[2017-02-23] MEDS: Dextrose 5%-0.9% NaCl 1,000 ML IV SCH (22:45)
[2017-02-24] MEDS: Propranolol 10 MG Tab PO SCH (08:08)
[2017-02-24] MEDS: Ferrous Sulfate 325 MG Tab PO SCH (08:08)
[2017-02-24] MEDS: Gabapentin 600 MG Tab PO SCH (08:08)
[2017-02-24] MEDS: Famotidine 20 MG Tab PO SCH (08:08)
[2017-02-24] MEDS: Potassium Chloride 10 MEQ in Premix Bag 1 BAG IV SCH ×6 (08:13→13:46)
[2017-02-24] MEDS: Enoxaparin 30 MG/0.3 ML Syringe SUBCUT SCH (08:17)
[2017-02-24 10:33] VITALS: BP 92/47
--- NOTE | 2017-02-24 10:34 | PCM.DCSUM1 ---
Discharge Summary - Hospital Course Brief History: This is an 86-year-old white female with past medical history of advanced dementia, iron deficiency anemia, hypertension, chronic diarrhea, gastritis, GERD, urinary urinary incontinence, generalized pain, anxiety, depression, and vitamin C deficiency, who comes in to the emergency department with complains of 3 episode of coffee ground emesis associated with worsening mental status and was found to have urinary tract infection. - Discharge Data Discharge Date: 02/24/17 [place]charge Dis[place] [address] Condition: Good - Discharge Diagnosis/Problem(s) (1) UTI, Urinary tract infectious disease SNOMED Code(s): 56471679 ICD Code: N39.0 - URINARY TRACT INFECTION, SITE NOT SPECIFIED Status: Acute Priority: Medium (2) Hiatal hernia with gastroesophageal reflux SNOMED Code(s): 391376376 ICD Code: K21.9 - GASTRO-ESOPHAGEAL REFLUX DISEASE WITHOUT ESOPHAGITIS; K44.9 - DIAPHRAGMATIC HERNIA WITHOUT OBSTRUCTION OR GANGRENE Status: Chronic (3) Dementia SNOMED Code(s): 46903327 ICD Code: F03.90 - UNSPECIFIED DEMENTIA WITHOUT BEHAVIORAL DISTURBANCE Status: Chronic Priority: Medium Onset Date: 05/09/14 (4) Anemia SNOMED Code(s): 095213206 ICD Code: D64.9 - ANEMIA, UNSPECIFIED Status: Acute Qualifiers: Anemia type: iron deficiency Iron deficiency anemia type: unspecified iron deficiency Qualified Code(s): D50.9 - Iron deficiency anemia, unspecified (5) Coffee ground emesis SNOMED Code(s): 499760244, 671135952 ICD Code: K92.0 - HEMATEMESIS Status: Resolved (6) Dehydration SNOMED Code(s): 10271509 ICD Code: E86.0 - DEHYDRATION Status: Resolved Priority: High (7) Comfort measures only status SNOMED Code(s): 12818485078997 ICD Code: Z51.5 - ENCOUNTER FOR PALLIATIVE CARE Status: Acute - Patient Summary/Data Operative Procedure(s) Performed: None Complications: None Consults: Consultations 02/22/17 09:00 Consult to Portfolio Administrator [CONS] Routine OT Evaluation and Treatment [CONS] Routine PT Evaluation and Treatment [CONS] Routine 02/22/17 11:59 Consult to Speech Language Pathology [NIGHT [facility] MAGISTRATE Evaluation and Treatment] [CONS] Routine Recommended Follow-up Testing/Procedures: BMP and Mg next week for e-lyte abnormality Hospital Course: Patient was primarily admitted for medical management of urinary tract infection along with dehydration. She was provided supportive care and appropriate antibiotic. Blood culture was negative for any organism growth. However her urine was positive for UTI and she grew Escherichia coli on her culture. Once her sensitivity came back, her antibiotic was then descalated. She will be discharged with additional course to complete her treatment. As for her coffee-ground emesis, patient carried a history of iron deficiency anemia with chronic gastritis and peptic ulcers disease. However her daughter deferred any further workup related to her anemia. Her hospital course was uncomplicated. However in the setting of her severe dementia the patient refused to eat and take her scheduled pills. Speech language pathologist was consulted to assess her swallowing. Multiple attempts were tried unfortunately without any success. Patient had suffered dehydration along with electrolyte imbalances due to poor oral intake. We discussed this with her daughter, and finally on the day of discharge, she was made comfort care only. Patient is now ready for discharge. Her vitals are stable. However her overall prognosis remains poor in the setting of her advanced dementia. PEG tube placement was offered her daughter refused any kind of interventions. Therefore she will now be discharged back to local senior care. Her primary care physician has been contacted and discharge care plan was conveyed to him. At this point the patient will now be comfort care measures. Comfort care orders will be done by her primary care physician as soon as she gets to the facility. - Patient Instructions Diet: Usual Diet as Tolerated Activity: As Tolerated Driving: Do Not Drive Showering/Bathing: May Shower, No Tub Bathing/Swimming Notify Provider of: Fever, Increased Pain, Nausea and/or Vomiting Other/Special Instructions: - Please take all medication as directed. - BMP and Mg level check next week for electrolyte abnormality. - Keep you follow up appointment with your doctor. - Call your doctor for any questions or concerns - Discharge Plan Prescriptions/Med Rec: Cefuroxime [Ceftin] 250 mg PO BID #6 tablet Lactobacillus Cmb#7/Fos/Inulin [Probiotic Complex Tablet] 1 each PO BID #6 tablet Home Medications: Home Meds Acetaminophen [Tylenol Extra Strength] 500 mg PO Q4H PRN 01/10/14 [History] Ascorbic Acid [Vitamin C] 500 mg PO DAILY 01/10/14 [History] B2/Vit A,C & E/Lut/Zeaxanth/Mn [Icaps] 1 each PO DAILY 01/10/14 [History] Cholecalciferol (Vitamin D3) [Vitamin D3] 1,000 units PO DAILY 01/10/14 [History ] Cyanocobalamin (Vitamin B12) [Vitamin B12] 1,000 mcg PO DAILY 01/10/14 [History] Ferrous Sulfate [Ferosul] 325 mg PO BID 01/10/14 [History] Gabapentin 1 tab PO DAILY 01/10/14 [History] Propranolol [Inderal] 10 mg PO BID 01/10/14 [History] Citalopram Hydrobromide [Celexa] 20 mg PO BEDTIME 05/09/14 [History] Acetaminophen [Tylenol] 650 mg PO BID 02/21/17 [History] Memantine HCl [Namenda XR] 14 mg PO DAILY 02/21/17 [History] Ondansetron [Zofran ODT] 4 mg PO Q4H PRN 02/21/17 [History] Polyethylene Glycol 3350 [Miralax] 17 gram PO DAILY 02/21/17 [History] Ranitidine HCl [Zantac] 150 mg PO DAILY 02/21/17 [History] Sennosides/Docusate Sodium [Senna-Docusate Sodium] 8.6 - 50 mg PO BID 02/21/17 [ History] Cefuroxime [Ceftin] 250 mg PO BID #6 tablet 02/24/17 [Rx] Lactobacillus Cmb#7/Fos/Inulin [Probiotic Complex Tablet] 1 each PO BID #6 tablet 02/24/17 [Rx] Patient Handouts: Urinary Tract Infection, Adult, [id number] Referrals: Mauricio Lauren MD [Primary Care Provider] - - Discharge Summary/Plan Comment DC Time >30 min.: Yes (45 mins) Discharge Summary/Plan Comment: Discharge to local [place] - General Info Date of Service: 02/24/17 Subjective Update: Follow Up Functional Status: Reports: pain controlled. Denies: tolerating diet, ambulating, urinating, new symptoms - Review of Systems General: Denies: Fever, Weakness, Fatigue, Malaise, Chills HEENT: Reports: no symptoms Pulmonary: Denies: shortness of breath Cardiovascular: Denies: Chest Pain Gastrointestinal: Denies: Abdominal pain, Nausea, Vomiting Genitourinary: Reports: no symptoms Musculoskeletal: Reports: no symptoms Skin: Reports: no symptoms Neurological: Reports: Confusion, Pre-Existing Deficit Psychiatric: Denies: depression, anxiety Systems Review Comment: No overnight or acute issues. She is essentially the same. Her UA is pos for E. coli. - Patient Data Vitals - Most Recent: Last Vital Signs Temp 37.0 C 02/24/17 07:35 Pulse 76 02/24/17 08:08 Resp 12 02/24/17 07:35 BP 113/82 02/24/17 08:08 Pulse Ox 95 02/24/17 07:35 Weight - Most Recent: 47.627 kg I&O - Last 24 hours: Intake & Output 02/23/17 02/24/17 02/24/17 22:59 06:59 14:59 Intake Total 1250 351 Balance 1250 351 Lab Results - Last 24 hrs: Laboratory Results - last 24 hr 02/24/17 Range/Units 06:13 Sodium 141 (136-145) mEq/L Potassium 2.9 L (3.5-5.1) mEq/L Chloride 109 H (98-107) mEq/L Carbon Dioxide 18 L (21-32) mEq/L Anion Gap 16.9 H (5-15) BUN 10 (7-18) mg/dL Creatinine 1.1 H (0.55-1.02) mg/dL Est Cr Clr Drug Dosing 28.62 mL/min Estimated GFR (MDRD) 47 (>60) mL/min BUN/Creatinine Ratio 9.1 L (14-18) Glucose 103 (83-115) mg/dL Calcium 8.2 L (8.5-10.1) mg/dL Magnesium 2.1 (1.8-2.4) mg/dl C-Reactive Protein 0.9 (<1.0) mg/dL Med Orders - Current: Current Medications Acetaminophen (Tylenol Solution) 650 mg PO Q6H PRN PRN Reason: Fever Citalopram Hydrobromide (Celexa) 20 mg PO BEDTIME [facility] Last Admin: 02/23/17 20:03 Dose: Not Given Enoxaparin Sodium (Lovenox) 30 mg SUBCUT DAILY [facility] Last Admin: 02/24/17 08:17 Dose: 30 mg Famotidine (Pepcid) 20 mg PO DAILY [facility] Last Admin: 02/24/17 08:08 Dose: Not Given Ferrous Sulfate (Ferrous Sulfate) 325 mg PO BID [facility] Last Admin: 02/24/17 08:08 Dose: Not Given Gabapentin (Neurontin) 600 mg PO DAILY [facility] Last Admin: 02/24/17 08:08 Dose: Not Given Ceftriaxone Sodium 1 gm/ (Sodium Chloride) 100 mls @ 200 mls/hr IV Q24H [facility] Last Admin: 02/23/17 16:03 Dose: 200 mls/hr Promethazine HCl 12.5 mg/ (Sodium Chloride) 50.5 mls @ 100 mls/hr IV Q6H PRN PRN Reason: Nausea/Vomiting Dextrose/Sodium Chloride (Dextrose 5%-Normal Saline) 1,000 mls @ 75 mls[facility] Last Admin: 02/23/17 22:45 Dose: 75 mls/hr Potassium Chloride 10 meq/ (Premix) 100 mls @ 100 mls/hr IV Q1H [facility] Stop: 02/24/17 13:44 Last Admin: 02/24/17 09:35 Dose: 100 mls/hr Magnesium Sulfate (Pharmacy To Dose - Magnesium Replacement) 1 dose .XX ASDIRECTED [facility] Memantine Extended (Release 14mg) 14 mg PO DAILY [facility] Last Admin: 02/21/17 22:27 Dose: Not Given Ondansetron HCl (Zofran) 4 mg IVPUSH Q8H PRN PRN Reason: Nausea/Vomiting Potassium Chloride (Pharmacy To Dose - Potassium Replacement) 1 dose .XX ASDIRECTED [facility] Propranolol HCl (Inderal) 10 mg PO BID [facility] Last Admin: 02/24/17 08:08 Dose: Not Given Discontinued Medications Sodium Chloride (Normal Saline) 1,000 mls @ 100 mls/hr IV ONETIME ONE Stop: 02/22/17 01:13 Last Admin: 02/21/17 15:45 Dose: 100 mls/hr Ceftriaxone Sodium 1 gm/ (Sodium Chloride) 100 mls @ 200 mls/hr IV ONETIME ONE Stop: 02/21/17 17:40 Last Admin: 02/21/17 17:39 Dose: 200 mls/hr Sodium Chloride (Normal Saline) 800 mls @ 100 mls/hr IV ASDIRECTED [facility] Stop: 02/21/17 23:13 Sodium Chloride (Normal Saline) 1,000 mls @ 75 mls/hr IV ASDIRECTED [facility] Last Admin: 02/23/17 17:50 Dose: 75 mls/hr Magnesium Sulfate 2 gm/ Premix 50 mls @ 25 mls/hr IV ONETIME ONE Stop: 02/23/17 10:59 Last Admin: 02/23/17 10:18 Dose: 25 mls/hr Potassium Chloride 10 meq/ (Premix) 100 mls @ 100 mls/hr IV Q1H [facility] Stop: 02/23/17 13:59 Last Admin: 02/23/17 16:23 Dose: 100 mls/hr Iopamidol (Isovue-300 (61%)) 100 ml IVPUSH ONETIME ONE Stop: 02/21/17 16:31 Last Admin: 02/21/17 20:19 Dose: Not Given Iopamidol (Isovue-300 (61%)) 100 ml IVPUSH ONETIME ONE Stop: 02/22/17 09:46 Last Admin: 02/21/17 17:00 Dose: 80 ml Lorazepam (Ativan) 0.5 mg IVPUSH ONETIME ONE Stop: 02/21/17 15:23 Last Admin: 02/21/17 15:47 Dose: 0.5 mg Lorazepam (Ativan) 0.5 mg IVPUSH ONETIME ONE Stop: 02/21/17 16:29 Last Admin: 02/21/17 16:36 Dose: 0.5 mg Ondansetron HCl (Zofran) 4 mg IVPUSH ONETIME ONE Stop: 02/21/17 15:16 Last Admin: 02/21/17 15:55 Dose: 4 mg Pantoprazole Sodium (Protonix Iv) 40 mg IVPUSH ONETIME ONE Stop: 02/21/17 15:16 Last Admin: 02/21/17 15:50 Dose: 40 mg Pantoprazole Sodium (Protonix Iv) 40 mg IVPUSH Q12H [facility] Last Admin: 02/23/17 20:02 Dose: 40 mg Potassium Chloride (Pharmacy To Dose - Potassium Replacement) 1 dose .XX ASDIRECTED [facility] Potassium Chloride (Potassium Chloride) 40 meq PO Q4H [facility] Stop: 02/23/17 13:01 Last Admin: 02/23/17 10:21 Dose: Not Given Sodium Chloride (Saline Flush) 10 ml FLUSH ASDIRECTED PRN PRN Reason: Keep Vein Open Last Admin: 02/21/17 15:00 Dose: 10 ml Sodium Chloride (Saline Flush) 10 ml FLUSH ONETIME PRN PRN Reason: IV FLUSH Sodium Chloride (Saline Flush) 10 ml FLUSH ONETIME PRN PRN Reason: IV FLUSH Stop: 02/22/17 11:00 Last Admin: 02/21/17 17:05 Dose: 10 ml - Exam General: Reports: no acute distress, other (Awake). Denies: cooperative HEENT: Reports: Pupils equal, Pupils reactive Neck: Reports: supple, trachea midline, no JVD Lungs: Reports: Clear to auscultation, Normal respiratory effort Cardiovascular: Reports: Regular Rate, Regular Rhythm Abdomen: Reports: bowel sounds present, soft, no tenderness, no distension (Female) Exam: Deferred Rectal (Female) Exam: Deferred Back Exam: Reports: Normal Inspection, Decreased Range of Motion Extremities: Reports: no edema, normal pulses, no tenderness/swelling, no clubbing, no cyanosis, no calf tenderness Skin: Reports: warm, dry, intact Neurological: Reports: no new focal deficit Psy/Mental Status: Reports: alert, normal affect, normal mood *Q Meaningful Use (DIS) - VTE *Q VTE Criteria *Q: - Stroke *Q Stroke Criteria *Q: - AMI *Q AMI Criteria *Q:
[2017-02-24] MEDS ORDERED: Potassium Chloride 10 MEQ in Premix Bag 1 BAG IV ONE (13:00)
[2017-02-24] MEDS: Dextrose 5%-0.9% NaCl 1,000 ML IV SCH (13:04)
[2017-02-24] MEDS: cefTRIAXone 1 GM in Sodium Chloride 0.9% 100 ML IV SCH (14:16)
== END 2017-02-24 16:07 | DRG 690 ==
LOC: JD.ED 14:49 → JD.MS 18:50 → UNDOADMIN 18:50 → JD.MS 19:35 → UNDOADMIN 19:35 → JD.MS 22:57 → UNDODISIN 02-24 16:07
PROVIDERS: ADMIT Internal Medicine Cardiovascular Disease; ATTEND Internal Medicine Cardiovascular Disease
DX: N39.0 Urinary tract infection, site not specified (principal); E86.0 Dehydration; K92.0 Hematemesis; R13.10 Dysphagia, unspecified; F03.90 Unspecified dementia, unspecified severity, without behavioral disturbance, psychotic disturbance, mood disturbance, and anxiety; Z51.5 Encounter for palliative care; B96.20 Unspecified Escherichia coli [E. coli] as the cause of diseases classified elsewhere; R53.1 Weakness; K21.9 Gastro-esophageal reflux disease without esophagitis; K44.9 Diaphragmatic hernia without obstruction or gangrene; D50.9 Iron deficiency anemia, unspecified; F41.8 Other specified anxiety disorders; K52.9 Noninfective gastroenteritis and colitis, unspecified; I12.9 Hypertensive chronic kidney disease with stage 1 through stage 4 chronic kidney disease, or unspecified chronic kidney disease; N18.3 Chronic kidney disease, stage 3 (moderate); E87.5 Hyperkalemia; E55.9 Vitamin D deficiency, unspecified; I95.9 Hypotension, unspecified
CPT/HCPCS: 36415; 71010; 74020; 74177; 80053; 81001; 82009; 83605; 83880; 85025; 86140; 87040; 87086; 87088; 87186; 96361; 96365; 96375; 96376; 99285; C9113; J0696; J2060 ×2; J2405; J7030; J7040; J7050 ×2; P9612; Q9967; 80048; 80061; 83735; 84443; 84484; 85027; 87641; 97163-GP; 97167-GO; 99284; J1650; J3475; J3480; J7042

== ENCOUNTER 2020-12-22 12:42 | Inpatient (IN) | payer MEDICARE, BC, MEDICAID ==
[2020-12-22] MEDS ORDERED: cefTRIAXone 2 GM in Sodium Chloride 0.9% 100 ML IV ONE (13:05)
[2020-12-22] MEDS ORDERED: Sodium Chloride 0.9% 10 ML Syringe FLUSH PRN (13:07)
[2020-12-22] MEDS ORDERED: Sodium Chloride 0.9% 1,000 ML IV SCH ×2 (13:15→16:45)
--- NOTE | 2020-12-22 13:35 | CR ---
Chest: Portable view of the chest was obtained. Comparison: Prior chest x-ray of 02/21/17. Heart size and mediastinum are within normal limits for portable technique. Lungs show no definite acute parenchymal change. Bony structures are osteopenic. Impression: 1. Nothing acute is definitely seen on portable chest x-ray. Diagnostic code #2
[2020-12-22 13:47] LABS: CORONAVIRUS COVID-19 NAA NEGATIVE (NEGATIVE)
[2020-12-22] MEDS ORDERED: Sodium Chloride 0.9% 1,000 ML IV ONE (13:56)
[2020-12-22] MEDS ORDERED: Acetaminophen 650 MG Supp RECTAL ONE (14:29)
--- NOTE | 2020-12-22 14:35 | EDM.PDOC ---
ED HPI GENERAL MEDICAL PROBLEM - General Chief Complaint: Respiratory Problem Stated Complaint: [facility] Time Seen by Provider: 12/22/20 12:48 Source of Information: Reports: EMS, Family, Prison Records History Limitations: Reports: Altered Mental Status - History of Present Illness INITIAL COMMENTS - FREE TEXT/NARRATIVE: The patient presents by [facility] from [facility] for a fever and congestion. The patient was doing fine yesterday. This morning she did not want to eat. She has advanced dementia and she does not talk and she is mostly in bed. She then developed some course lung sounds and a fever. Her oxygen saturations were low and she needed some oxygen. She has no cough and no vomiting. Onset: Gradual Duration: Hour(s): Severity: Moderate Improves with: Reports: None Worsens with: Reports: None Associated Symptoms: Reports: Fever/Chills, Shortness of Breath. Denies: Nausea/Vomiting - Related Data Allergies Allergy/AdvReac Type Severity Reaction Status Date / Time meperidine [From Demerol] Allergy Cannot Verified 02/21/17 15:11 Remember hydrocodone AdvReac Vomiting Verified 02/23/17 08:43 tramadol AdvReac Dizziness Verified 02/23/17 08:43 Past Medical History HEENT History: Reports: Macular Degeneration Cardiovascular History: Reports: Hypertension Respiratory History: Reports: None Gastrointestinal History: Reports: GERD Other Gastrointestinal History: noninfective gastroenteritis, colitis, diarrhea, nausea Genitourinary History: Reports: Chronic Renal Insuffiency 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 Endocrine/Metabolic History: Reports: Vitamin D Deficiency Hematologic History: Reports: Anemia - Past Surgical History GI Surgical History: Reports: Other (See Below) Other GI Surgeries/Procedures: colitis Social & Family History - Family History Family Medical History: Unobtainable - Tobacco Use Tobacco Use Status *Q: Never Tobacco User - Caffeine Use Caffeine Use: Reports: None - Recreational Drug Use Recreational Drug Use: No - Living Situation & Occupation Living situation: Reports: Extended Care Facility ED ROS GENERAL - Review of Systems Review Of Systems: See Below Constitutional: Reports: Fever HEENT: Reports: No Symptoms Respiratory: Reports: Shortness of Breath, Other (course lung sounds) Cardiovascular: Reports: No Symptoms Endocrine: Reports: No Symptoms GI/Abdominal: Reports: No Symptoms ED EXAM, GENERAL - Physical Exam Exam: See Below Exam Limited By: Altered Mental Status General Appearance: No Apparent Distress, Other (Sleepy) Ears: Normal External Exam Nose: Normal Inspection Head: Atraumatic, Normocephalic Neck: Normal Inspection Respiratory/Chest: No Respiratory Distress, Rhonchi Cardiovascular: Regular Rate, Rhythm, No Edema, No Murmur GI/Abdominal: Soft, Non-Tender, No Organomegaly, No Mass Extremities: Normal Inspection Neurological: Other (sleepy) Course - Vital Signs Last Recorded V/S: Last Vital Signs Temp 102.4 F H 12/22/20 12:42 Pulse 110 H 12/22/20 12:42 Resp 36 H 12/22/20 12:42 BP 146/80 H 12/22/20 12:42 Pulse Ox 91 L 12/22/20 12:42 - Orders/Labs/Meds Orders: Active Orders 24 hr Category Date Time Status Insert Stovall Catheter [Insert Urinary Catheter] [OM.PC] Care 12/22/20 13:10 Ordered Stat Peripheral IV Care [RC] . DIRECTED Care 12/22/20 13:07 Active Urinary Catheter Assessment [RC] ASDIRECTED Care 12/22/20 13:10 Active CULTURE BLOOD [BC] Stat Lab 12/22/20 13:04 Ordered CULTURE BLOOD [BC] Stat Lab 12/22/20 13:04 Ordered CULTURE URINE [RM] Stat Lab 12/22/20 13:10 Received REFLEX LACTIC ACID YES OR NO [CHEM] Routine Lab 12/22/20 13:55 Received Sodium Chloride 0.9% [Normal Saline] 1,000 ml Med 12/22/20 13:15 Active IV ASDIRECTED Sodium Chloride 0.9% [Normal Saline] 1,000 ml Med 12/22/20 13:56 Active IV ONETIME Sodium Chloride 0.9% [Saline Flush] Med 12/22/20 13:07 Active 10 ml FLUSH ASDIRECTED PRN Blood Culture x2 Reflex Set [OM.PC] Stat Oth 12/22/20 13:04 Ordered Peripheral IV Insertion Adult [OM.PC] Routine Oth 12/22/20 13:07 Ordered Medication Orders Sodium Chloride (Normal Saline) 1,000 mls @ 125 mls/hr IV ASDIRECTED ANKUR Last Infusion: 12/22/20 14:00 Dose: 999 mls/hr Documented by: Admin: 12/22/20 13:11 Dose: 125 mls/hr Documented by: JEWELS Sodium Chloride (Normal Saline) 1,000 mls @ 1,000 mls/hr IV ONETIME ONE Stop: 12/22/20 14:55 Sodium Chloride (Sodium Chloride 0.9% 10 Ml Syringe) 10 ml FLUSH ASDIRECTED PRN PRN Reason: Keep Vein Open Last Admin: 12/22/20 13:11 Dose: 10 ml Documented by: JEWELS Labs: Laboratory Tests 12/22/20 12/22/20 12/22/20 Range/Units 12:55 12:55 12:55 WBC 8.35 (3.98-10.04) K/mm3 RBC 4.54 (3.98-5.22) M/mm3 Hgb 13.4 D (11.2-15.7) gm/dl Hct 43.5 (34.1-44.9) % MCV 95.8 H D (79.4-94.8) fl MCH 29.5 (25.6-32.2) pg MCHC 30.8 L (32.2-35.5) g/dl RDW Std Deviation 50.5 H (36.4-46.3) fL Plt Count 345 D (182-369) K/mm3 MPV 11.9 (9.4-12.3) fl Neut % (Auto) 65.6 (34.0-71.1) % Lymph % (Auto) 18.8 L (19.3-51.7) % [place] % (Auto) 14.6 H (4.7-12.5) % Eos % (Auto) 0 L (0.7-5.8) Baso % (Auto) 0.4 (0.1-1.2) % Neut # (Auto) 5.48 (1.56-6.13) K/mm3 Lymph # (Auto) 1.57 (1.18-3.74) K/mm3 [place] # (Auto) 1.22 H (0.24-0.36) K/mm3 Eos # (Auto) 0.00 L (0.04-0.36) K/mm3 Baso # (Auto) 0.03 (0.01-0.08) K/mm3 Sodium 145 (136-145) mEq/L Potassium 4.2 (3.5-5.1) mEq/L Chloride 108 H (98-107) mEq/L Carbon Dioxide 20 L (21-32) mEq/L Anion Gap 21.2 H (5-15) BUN 43 H D (7-18) mg/dL Creatinine 2.2 H (0.55-1.02) mg/dL Est Cr Clr Drug Dosing 15.26 mL/min Estimated GFR (MDRD) 21 (>60) mL/min BUN/Creatinine Ratio 19.5 H (14-18) Glucose 489 H (83-115) mg/dL Lactic Acid (0.4-2.0) mmol/L Calcium 9.3 (8.5-10.1) mg/dL Total Bilirubin 1.1 H (0.2-1.0) mg/dL AST 30 (15-37) U/L ALT 60 H (14-59) U/L Alkaline Phosphatase 104 (46-116) U/L C-Reactive Protein 19.2 H* (<1.0) mg/dL NT-Pro-B Natriuret Pep 8711 H (0-450) pg/mL Total Protein 8.5 H (6.4-8.2) g/dl Albumin 3.4 (3.4-5.0) g/dl Globulin 5.1 gm/dL Albumin/Globulin Ratio 0.7 L (1-2) Urine Color (Yellow) Urine Appearance (Clear) Urine pH (5.0-8.0) Ur Specific [place] (1.005-1.030) Urine Protein (Negative) Urine Glucose (UA) (Negative) Urine Ketones (Negative) Urine Occult Blood (Negative) Urine Nitrite (Negative) Urine Bilirubin (Negative) Urine Urobilinogen (0.2-1.0) Ur Leukocyte Esterase (Negative) Urine RBC (0-5) /hpf Urine WBC (0-5) /hpf Ur Squamous Epith Cells (0-5) /hpf Amorphous Sediment (NOT SEEN) /hpf Urine Bacteria (FEW) /hpf Urine Mucus (FEW) /hpf Influenza Type A RNA (NEGATIVE) Influenza Type B RNA (NEGATIVE) SARS-CoV-2 RNA (TRESSA) (NEGATIVE) 12/22/20 12/22/20 12/22/20 Range/Units 12:55 13:08 13:10 WBC (3.98-10.04) K/mm3 RBC (3.98-5.22) M/mm3 Hgb (11.2-15.7) gm/dl Hct (34.1-44.9) % MCV (79.4-94.8) fl MCH (25.6-32.2) pg MCHC (32.2-35.5) g/dl RDW Std Deviation (36.4-46.3) fL Plt Count (182-369) K/mm3 MPV (9.4-12.3) fl Neut % (Auto) (34.0-71.1) % Lymph % (Auto) (19.3-51.7) % [place] % (Auto) (4.7-12.5) % Eos % (Auto) (0.7-5.8) Baso % (Auto) (0.1-1.2) % Neut # (Auto) (1.56-6.13) K/mm3 Lymph # (Auto) (1.18-3.74) K/mm3 [place] # (Auto) (0.24-0.36) K/mm3 Eos # (Auto) (0.04-0.36) K/mm3 Baso # (Auto) (0.01-0.08) K/mm3 Sodium (136-145) mEq/L Potassium (3.5-5.1) mEq/L Chloride (98-107) mEq/L Carbon Dioxide (21-32) mEq/L Anion Gap (5-15) BUN (7-18) mg/dL Creatinine (0.55-1.02) mg/dL Est Cr Clr Drug Dosing mL/min Estimated GFR (MDRD) (>60) mL/min BUN/Creatinine Ratio (14-18) Glucose (83-115) mg/dL Lactic Acid 5.2 H* (0.4-2.0) mmol/L Calcium (8.5-10.1) mg/dL Total Bilirubin (0.2-1.0) mg/dL AST (15-37) U/L ALT (14-59) U/L Alkaline Phosphatase (46-116) U/L C-Reactive Protein (<1.0) mg/dL NT-Pro-B Natriuret Pep (0-450) pg/mL Total Protein (6.4-8.2) g/dl Albumin (3.4-5.0) g/dl Globulin gm/dL Albumin/Globulin Ratio (1-2) Urine Color Dark yellow (Yellow) Urine Appearance Cloudy H (Clear) Urine pH 6.0 (5.0-8.0) Ur Specific [place] > or = 1.030 (1.005-1.030) Urine Protein 3+ H (Negative) Urine Glucose (UA) 2+ H (Negative) Urine Ketones Trace H (Negative) Urine Occult Blood 3+ H (Negative) Urine Nitrite Negative (Negative) Urine Bilirubin 1+ H (Negative) Urine Urobilinogen 1.0 (0.2-1.0) Ur Leukocyte Esterase 3+ H (Negative) Urine RBC 20-30 H (0-5) /hpf Urine WBC >100 H (0-5) /hpf Ur Squamous Epith Cells 0-5 (0-5) /hpf Amorphous Sediment Moderate H (NOT SEEN) /hpf Urine Bacteria Many H (FEW) /hpf Urine Mucus Not seen (FEW) /hpf Influenza Type A RNA Negative (NEGATIVE) Influenza Type B RNA Negative (NEGATIVE) SARS-CoV-2 RNA (TRESSA) Negative (NEGATIVE) Meds: Medications Generic Name Dose Route Start Last Admin Trade Name Freq PRN Reason Stop Dose Admin Sodium Chloride 1,000 mls @ 125 mls/hr 12/22/20 13:15 12/22/20 14:00 Normal Saline IV 999 mls/hr ASDIRECTED ANKUR Infusion Sodium Chloride 1,000 mls @ 1,000 mls/hr 12/22/20 13:56 Normal Saline IV 12/22/20 14:55 ONETIME ONE Sodium Chloride 10 ml 12/22/20 13:07 12/22/20 13:11 Sodium Chloride 0.9% 10 Ml Syringe FLUSH 10 ml ASDIRECTED PRN Administration Keep Vein Open Discontinued Medications Generic Name Dose Route Start Last Admin Trade Name Freq PRN Reason Stop Dose Admin Acetaminophen 650 mg 12/22/20 14:29 Acetaminophen 650 Mg Supp RECTAL 12/22/20 14:30 NOW ONE Ceftriaxone Sodium 2 gm/ 100 mls @ 200 mls/hr 12/22/20 13:05 12/22/20 13:11 Sodium Chloride IV 12/22/20 13:34 200 mls/hr ONETIME ONE Administration - Re-Assessments/Exams Free Text/Narrative Re-Assessment/Exam: 12/22/20 14:35 I am worried the patient is septic. I ordered and IV NS 1L bolus, CXR, UA, labs, blood cultures, lactic acid, rocephin 2 grams IV and tylenol 650mg OK. Her CBC is negative. Her anion gap is elevated at 21.2. Her creatinine is elevated 2.2. Her glucose is elevated at 489. Her lactic acid is elevated at 5.2. Her total bilis is elevated at 1.1. Her ALT is elevated at 60. Her CRP is elevated at 19.2. Her BNP is elevated at 8,711. Her UA shows a UTI. She has a UTI and sepsis. She has severe sepsis. Antibiotics have been started after cultures. I ordered a 30ml/kg bolus. I called Dr Plaza and he agreed to the admission. 12/22/20 14:42 After the fluid bolus I did a sepsis focused exam and the patient responded well to fluids. Her BP has been good the whole time. I will be repeating her lactic acid. Departure - Departure Time of Disposition: 14:45 Disposition: Admitted As Inpatient 68 Condition: Serious Clinical Impression: Renal insufficiency UTI (urinary tract infection) Qualifiers: Urinary tract infection type: acute cystitis Hematuria presence: without hematuria Qualified Code(s): N30.00 - Acute cystitis without hematuria Sepsis Qualifiers: Sepsis type: sepsis due to unspecified organism Sepsis acute organ dysfunction status: without acute organ dysfunction Qualified Code(s): A41.9 - Sepsis, unspecified organism - Discharge Information Sepsis Event Note (ED) - Evaluation Sepsis Screening Result: Possible Sepsis Risk - Focused Exam Vital Signs: Vital Signs Temp Pulse Resp BP Pulse Ox 12/22/20 12:42 102.4 F H 110 H 36 H 146/80 H 91 L - My Orders Last 24 Hours: My Active Orders 12/22/20 13:04 CULTURE BLOOD [BC] Stat CULTURE BLOOD [BC] Stat Blood Culture x2 Reflex Set [OM.PC] Stat 12/22/20 13:07 Peripheral IV Care [RC] . DIRECTED Sodium Chloride 0.9% [Saline Flush] 10 ml FLUSH ASDIRECTED PRN Peripheral IV Insertion Adult [OM.PC] Routine 12/22/20 13:10 Insert Stovall Catheter [Insert Urinary Catheter] [OM.PC] Stat Urinary Catheter Assessment [RC] ASDIRECTED CULTURE URINE [RM] Stat 12/22/20 13:15 Sodium Chloride 0.9% [Normal Saline] 1,000 ml IV ASDIRECTED 12/22/20 13:55 REFLEX LACTIC ACID YES OR NO [CHEM] Routine 12/22/20 13:56 Sodium Chloride 0.9% [Normal Saline] 1,000 ml IV ONETIME - Assessment/Plan Last 24 Hours: My Active Orders 12/22/20 13:04 CULTURE BLOOD [BC] Stat CULTURE BLOOD [BC] Stat Blood Culture x2 Reflex Set [OM.PC] Stat 12/22/20 13:07 Peripheral IV Care [RC] . DIRECTED Sodium Chloride 0.9% [Saline Flush] 10 ml FLUSH ASDIRECTED PRN Peripheral IV Insertion Adult [OM.PC] Routine 12/22/20 13:10 Insert Stovall Catheter [Insert Urinary Catheter] [OM.PC] Stat Urinary Catheter Assessment [RC] ASDIRECTED CULTURE URINE [RM] Stat 12/22/20 13:15 Sodium Chloride 0.9% [Normal Saline] 1,000 ml IV ASDIRECTED 12/22/20 13:55 REFLEX LACTIC ACID YES OR NO [CHEM] Routine 12/22/20 13:56 Sodium Chloride 0.9% [Normal Saline] 1,000 ml IV ONETIME
[2020-12-22] MEDS ORDERED: Acetaminophen 325 MG Tab PO PRN (17:04)
[2020-12-22] MEDS ORDERED: Albuterol 0.083% 2.5 MG/3 ML Neb Soln NEB PRN (17:04)
[2020-12-22] MEDS ORDERED: Albuterol/Ipratropium 3.0-0.5 MG/3 ML Neb Soln NEB PRN (17:04)
[2020-12-22] MEDS ORDERED: Acetaminophen 650 MG Supp RECTAL PRN (17:04)
[2020-12-22] MEDS ORDERED: Insulin Lispro 100 UNIT/ML 10 ML Vial SUBCUT ONE ×2 (17:15→20:20)
--- NOTE | 2020-12-22 17:15 | PCM.HP.2 ---
H&P History of Present Illness - General Date of Service: 12/22/20 Admit Problem/Dx: Admission Diagnosis/Problem Admission Diagnosis/Problem Sepsis - History of Present Illness Initial Comments - Free Text/Narative: 89-year-old female with severe dementia presents via EMS from her residence at [facility] with a fever, decreased oral intake, and congestion starting this morning. Per her daughter and the emergency department notes this morning she had decreasing appetite and oral intake, increased heart rate and fever. Patient was sent to the emergency department where she was found to have a fever of 102, heart rate of 110, respiratory rate of 36, and oxygen saturations of 91% on 4 L. Patient is nonverbal and unable to communicate secondary to severe dementia at baseline. In the emergency department patient was found to have a severe UTI with WBCs greater than 100 on UA. Chest x-ray was clear. Other labs of significance were normal WBC of 8.35 with no left shift. Anion gap was significantly elevated at 21 and kidney function was significantly reduced with an estimated GFR of 21, creatinine 2.2, BUN 43. She was acidotic with a bicarb of 20. Lactic acid was 5.2. Of note her glucose was 489. Her daughter states that they just recently diagnosed her with prediabetes and apparently she was started on Glucophage. Patient was given a fluid bolus of 30 mL/kg and started on Rocephin 2 g. Repeat lactic acid 3 hours later was 2.8. - Related Data Allergies/Adverse Reactions: Allergies Allergy/AdvReac Type Severity Reaction Status Date / Time meperidine [From Demerol] Allergy Cannot Verified 02/21/17 15:11 Remember hydrocodone AdvReac Vomiting Verified 02/23/17 08:43 tramadol AdvReac Dizziness Verified 02/23/17 08:43 Home Medications: Home Meds Acetaminophen 500 mg PO TID PRN 12/22/20 [History] Citalopram Hydrobromide [Citalopram HBr] 10 mg PO BEDTIME 12/22/20 [History] Cyanocobalamin (Vitamin B-12) [B-12] 1,000 mcg PO BEDTIME 12/22/20 [History] Docusate Sodium/Sennosides [Senna Plus] 1 tab PO BID 12/22/20 [History] Ferrous Sulfate 325 mg PO BEDTIME 12/22/20 [History] Gabapentin 600 mg PO BEDTIME 12/22/20 [History] Lactobacillus Acidophilus/Fos [Acidophilus Probiotic Tablet] 1 tab PO BID 12/22/20 [History] Magnesium Hydroxide [Milk of Magnesia] 30 ml PO TID PRN 12/22/20 [History] Memantine [Namenda Xr] 14 mg PO DAILY 12/22/20 [History] Omeprazole 20 mg PO ACBREAKFAST 12/22/20 [History] Ondansetron [Zofran ODT] 4 mg PO Q4H PRN 12/22/20 [History] bisacodyL [Dulcolax] 10 mg PO DAILY PRN 12/22/20 [History] bisacodyL [Dulcolax] 10 mg RECTAL DAILY PRN 12/22/20 [History] metFORMIN [Glucophage] 250 mg PO BID 12/22/20 [History] polyethylene glycoL 3350 [MiraLAX] 17 gm PO DAILY 12/22/20 [History] Past Medical History HEENT History: Reports: Macular Degeneration Cardiovascular History: Reports: Hypertension Respiratory History: Reports: None Gastrointestinal History: Reports: GERD Other Gastrointestinal History: noninfective gastroenteritis, colitis, diarrhea, nausea Genitourinary History: Reports: Chronic Renal Insuffiency 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 Endocrine/Metabolic History: Reports: Vitamin D Deficiency Hematologic History: Reports: Anemia - Past Surgical History GI Surgical History: Reports: Other (See Below) Other GI Surgeries/Procedures: colitis Female Surgical History: Reports: Mastectomy Other Female Surgeries/Procedures: Left sided mastectomy Social & Family History - Family History Family Medical History: No Pertinent Family History - Tobacco Use Tobacco Use Status *Q: Never Tobacco User - Caffeine Use Caffeine Use: Reports: None - Recreational Drug Use Recreational Drug Use: No - Living Situation & Occupation Living situation: Reports: Extended Care Facility H&P Review of Systems - Review of Systems: Review Of Systems: Unable To Obtain Reason Not Obtained: Secondary to severe dementia Exam - Exam Exam: See Below - Vital Signs Vital Signs: Last Vital Signs Temp 98.1 F 12/22/20 15:45 Pulse 92 12/22/20 16:30 Resp 18 12/22/20 15:45 BP 150/75 H 12/22/20 16:30 Pulse Ox 90 L 12/22/20 15:45 Weight: 131 lb 11.2 oz - Exam Quality Assessment: Supplemental Oxygen General: Alert, Oriented, 4 HEENT: Conjunctiva Clear, Mucosa Moist & [place], Normal Nasal Septum Lungs: Clear to Auscultation, Decreased Breath Sounds. No: Normal Respiratory Effort (Increased rate and effort) Cardiovascular: Regular Rate, Regular Rhythm GI/Abdominal Exam: Normal Bowel Sounds, Soft, Non-Tender, No Organomegaly, No Distention, No Abnormal Bruit Extremities: Normal Inspection, Normal Range of Motion, Non-Tender, No Pedal Edema, Normal Capillary Refill Peripheral Pulses: 2+: Posterior Tibial (L), Posterior Tibial (R), Dorsalis Pedis (L), Dorsalis Pedis (R) Skin: Warm, Dry, Intact Psychiatric: Alert, Normal Affect, Normal Mood - Patient Data Lab Results Last 24 hrs: Laboratory Results - last 24 hr 12/22/20 12/22/20 12/22/20 Range/Units 12:55 12:55 12:55 WBC 8.35 (3.98-10.04) K/mm3 RBC 4.54 (3.98-5.22) M/mm3 Hgb 13.4 D (11.2-15.7) gm/dl Hct 43.5 (34.1-44.9) % MCV 95.8 H D (79.4-94.8) fl MCH 29.5 (25.6-32.2) pg MCHC 30.8 L (32.2-35.5) g/dl RDW Std Deviation 50.5 H (36.4-46.3) fL Plt Count 345 D (182-369) K/mm3 MPV 11.9 (9.4-12.3) fl Neut % (Auto) 65.6 (34.0-71.1) % Lymph % (Auto) 18.8 L (19.3-51.7) % Dolores % (Auto) 14.6 H (4.7-12.5) % Eos % (Auto) 0 L (0.7-5.8) Baso % (Auto) 0.4 (0.1-1.2) % Neut # (Auto) 5.48 (1.56-6.13) K/mm3 Lymph # (Auto) 1.57 (1.18-3.74) K/mm3 [place]ores # (Auto) 1.22 H (0.24-0.36) K/mm3 Eos # (Auto) 0.00 L (0.04-0.36) K/mm3 Baso # (Auto) 0.03 (0.01-0.08) K/mm3 Sodium 145 (136-145) mEq/L Potassium 4.2 (3.5-5.1) mEq/L Chloride 108 H (98-107) mEq/L Carbon Dioxide 20 L (21-32) mEq/L Anion Gap 21.2 H (5-15) BUN 43 H D (7-18) mg/dL Creatinine 2.2 H (0.55-1.02) mg/dL Est Cr Clr Drug Dosing 15.26 mL/min Estimated GFR (MDRD) 21 (>60) mL/min BUN/Creatinine Ratio 19.5 H (14-18) Glucose 489 H (83-115) mg/dL Lactic Acid (0.4-2.0) mmol/L Calcium 9.3 (8.5-10.1) mg/dL Total Bilirubin 1.1 H (0.2-1.0) mg/dL AST 30 (15-37) U/L ALT 60 H (14-59) U/L Alkaline Phosphatase 104 (46-116) U/L C-Reactive Protein 19.2 H* (<1.0) mg/dL NT-Pro-B Natriuret Pep 8711 H (0-450) pg/mL Total Protein 8.5 H (6.4-8.2) g/dl Albumin 3.4 (3.4-5.0) g/dl Globulin 5.1 gm/dL Albumin/Globulin Ratio 0.7 L (1-2) Urine Color (Yellow) Urine Appearance (Clear) Urine pH (5.0-8.0) Ur Specific [place] (1.005-1.030) Urine Protein (Negative) Urine Glucose (UA) (Negative) Urine Ketones (Negative) Urine Occult Blood (Negative) Urine Nitrite (Negative) Urine Bilirubin (Negative) Urine Urobilinogen (0.2-1.0) Ur Leukocyte Esterase (Negative) Urine RBC (0-5) /hpf Urine WBC (0-5) /hpf Ur Squamous Epith Cells (0-5) /hpf Amorphous Sediment (NOT SEEN) /hpf Urine Bacteria (FEW) /hpf Urine Mucus (FEW) /hpf Influenza Type A RNA (NEGATIVE) Influenza Type B RNA (NEGATIVE) SARS-CoV-2 RNA (TRESSA) (NEGATIVE) 12/22/20 12/22/20 12/22/20 Range/Units 12:55 13:08 13:10 WBC (3.98-10.04) K/mm3 RBC (3.98-5.22) M/mm3 Hgb (11.2-15.7) gm/dl Hct (34.1-44.9) % MCV (79.4-94.8) fl MCH (25.6-32.2) pg MCHC (32.2-35.5) g/dl RDW Std Deviation (36.4-46.3) fL Plt Count (182-369) K/mm3 MPV (9.4-12.3) fl Neut % (Auto) (34.0-71.1) % Lymph % (Auto) (19.3-51.7) % Dolores % (Auto) (4.7-12.5) % Eos % (Auto) (0.7-5.8) Baso % (Auto) (0.1-1.2) % Neut # (Auto) (1.56-6.13) K/mm3 Lymph # (Auto) (1.18-3.74) K/mm3 [place] # (Auto) (0.24-0.36) K/mm3 Eos # (Auto) (0.04-0.36) K/mm3 Baso # (Auto) (0.01-0.08) K/mm3 Sodium (136-145) mEq/L Potassium (3.5-5.1) mEq/L Chloride (98-107) mEq/L Carbon Dioxide (21-32) mEq/L Anion Gap (5-15) BUN (7-18) mg/dL Creatinine (0.55-1.02) mg/dL Est Cr Clr Drug Dosing mL/min Estimated GFR (MDRD) (>60) mL/min BUN/Creatinine Ratio (14-18) Glucose (83-115) mg/dL Lactic Acid 5.2 H* (0.4-2.0) mmol/L Calcium (8.5-10.1) mg/dL Total Bilirubin (0.2-1.0) mg/dL AST (15-37) U/L ALT (14-59) U/L Alkaline Phosphatase (46-116) U/L C-Reactive Protein (<1.0) mg/dL NT-Pro-B Natriuret Pep (0-450) pg/mL Total Protein (6.4-8.2) g/dl Albumin (3.4-5.0) g/dl Globulin gm/dL Albumin/Globulin Ratio (1-2) Urine Color Dark yellow (Yellow) Urine Appearance Cloudy H (Clear) Urine pH 6.0 (5.0-8.0) Ur Specific [place] > or = 1.030 (1.005-1.030) Urine Protein 3+ H (Negative) Urine Glucose (UA) 2+ H (Negative) Urine Ketones Trace H (Negative) Urine Occult Blood 3+ H (Negative) Urine Nitrite Negative (Negative) Urine Bilirubin 1+ H (Negative) Urine Urobilinogen 1.0 (0.2-1.0) Ur Leukocyte Esterase 3+ H (Negative) Urine RBC 20-30 H (0-5) /hpf Urine WBC >100 H (0-5) /hpf Ur Squamous Epith Cells 0-5 (0-5) /hpf Amorphous Sediment Moderate H (NOT SEEN) /hpf Urine Bacteria Many H (FEW) /hpf Urine Mucus Not seen (FEW) /hpf Influenza Type A RNA Negative (NEGATIVE) Influenza Type B RNA Negative (NEGATIVE) SARS-CoV-2 RNA (TRESSA) Negative (NEGATIVE) 12/22/20 Range/Units 16:02 WBC (3.98-10.04) K/mm3 RBC (3.98-5.22) M/mm3 Hgb (11.2-15.7) gm/dl Hct (34.1-44.9) % MCV (79.4-94.8) fl MCH (25.6-32.2) pg MCHC (32.2-35.5) g/dl RDW Std Deviation (36.4-46.3) fL Plt Count (182-369) K/mm3 MPV (9.4-12.3) fl Neut % (Auto) (34.0-71.1) % Lymph % (Auto) (19.3-51.7) % Dol[place] % (Auto) (4.7-12.5) % Eos % (Auto) (0.7-5.8) Baso % (Auto) (0.1-1.2) % Neut # (Auto) (1.56-6.13) K/mm3 Lymph # (Auto) (1.18-3.74) K/mm3 [place] # (Auto) (0.24-0.36) K/mm3 Eos # (Auto) (0.04-0.36) K/mm3 Baso # (Auto) (0.01-0.08) K/mm3 Sodium (136-145) mEq/L Potassium (3.5-5.1) mEq/L Chloride (98-107) mEq/L Carbon Dioxide (21-32) mEq/L Anion Gap (5-15) BUN (7-18) mg/dL Creatinine (0.55-1.02) mg/dL Est Cr Clr Drug Dosing mL/min Estimated GFR (MDRD) (>60) mL/min BUN/Creatinine Ratio (14-18) Glucose (83-115) mg/dL Lactic Acid 2.8 H* (0.4-2.0) mmol/L Calcium (8.5-10.1) mg/dL Total Bilirubin (0.2-1.0) mg/dL AST (15-37) U/L ALT (14-59) U/L Alkaline Phosphatase (46-116) U/L C-Reactive Protein (<1.0) mg/dL NT-Pro-B Natriuret Pep (0-450) pg/mL Total Protein (6.4-8.2) g/dl Albumin (3.4-5.0) g/dl Globulin gm/dL Albumin/Globulin Ratio (1-2) Urine Color (Yellow) Urine Appearance (Clear) Urine pH (5.0-8.0) Ur Specific [place] (1.005-1.030) Urine Protein (Negative) Urine Glucose (UA) (Negative) Urine Ketones (Negative) Urine Occult Blood (Negative) Urine Nitrite (Negative) Urine Bilirubin (Negative) Urine Urobilinogen (0.2-1.0) Ur Leukocyte Esterase (Negative) Urine RBC (0-5) /hpf Urine WBC (0-5) /hpf Ur Squamous Epith Cells (0-5) /hpf Amorphous Sediment (NOT SEEN) /hpf Urine Bacteria (FEW) /hpf Urine Mucus (FEW) /hpf Influenza Type A RNA (NEGATIVE) Influenza Type B RNA (NEGATIVE) SARS-CoV-2 RNA (TRESSA) (NEGATIVE) Result Diagrams: 12/22/20 12:55 12/22/20 12:55 Sepsis Event Note - Evaluation Sepsis Screening Result: Severe Sepsis Risk - Focused Exam Vital Signs: Vital Signs Temp Temp Pulse Pulse Resp BP Pulse Ox 12/22/20 16:30 92 150/75 H 12/22/20 16:10 89 153/79 H 12/22/20 15:59 88 147/71 H 12/22/20 15:45 98.1 F 96 18 149/79 H 90 L 12/22/20 15:05 102.4 F H 12/22/20 12:42 102.4 F H 110 H 36 H 146/80 H 91 L - Problem List (1) Severe sepsis SNOMED Code(s): 60577305 ICD Code: A41.9 - SEPSIS, UNSPECIFIED ORGANISM; R65.20 - SEVERE SEPSIS WITHOUT SEPTIC SHOCK Status: Acute Current Visit: Yes (2) Acute on chronic renal failure SNOMED Code(s): 023315728 ICD Code: N17.9 - ACUTE KIDNEY FAILURE, UNSPECIFIED; N18.9 - CHRONIC KIDNEY DISEASE, UNSPECIFIED Status: Acute Current Visit: Yes (3) Hyperglycemia SNOMED Code(s): 82497821 ICD Code: R73.9 - HYPERGLYCEMIA, UNSPECIFIED Status: Acute Current Visit: Yes (4) Advanced dementia SNOMED Code(s): 12700373 ICD Code: F03.90 - UNSPECIFIED DEMENTIA WITHOUT BEHAVIORAL DISTURBANCE Status: Acute Current Visit: Yes (5) Renal insufficiency SNOMED Code(s): 261328005, 798727270 ICD Code: N28.9 - DISORDER OF KIDNEY AND URETER, UNSPECIFIED Status: Acute Current Visit: Yes Problem List Initiated/Reviewed/Updated: Yes Orders Last 24hrs: Active Orders 24 hr Category Date Time Status Admission Status [Patient Status] [ADT] Routine ADT 12/22/20 14:16 Active Antiembolic Devices [RC] PER UNIT ROUTINE Care 12/22/20 17:06 Ordered Bedrest Bedside Commode [RC] ASDIRECTED Care 12/22/20 16:55 Ordered Insert Stovall Catheter [Insert Urinary Catheter] [OM.PC] Care 12/22/20 13:10 Ordered Stat Oxygen Therapy Adult [Oxygen Therapy, ED] [RC] Care 12/22/20 12:42 Active ASDIRECTED Oxygen Therapy [RC] PRN Care 12/22/20 16:56 Ordered Peripheral IV Care [RC] . DIRECTED Care 12/22/20 13:07 Active RT Aerosol Therapy [RC] ASDIRECTED Care 12/22/20 17:06 Ordered Urinary Catheter Assessment [RC] ASDIRECTED Care 12/22/20 13:10 Active VTE/DVT Education [RC] PER UNIT ROUTINE Care 12/22/20 16:56 Ordered Vital Signs [RC] Q4H Care 12/22/20 16:56 Ordered Regular Diet [DIET] Diet 12/22/20 Dinner Ordered CULTURE BLOOD [BC] Stat Lab 12/22/20 13:04 Ordered CULTURE BLOOD [BC] Stat Lab 12/22/20 13:04 Ordered CULTURE URINE [RM] Stat Lab 12/22/20 13:10 Received Acetaminophen [TylenoL] Med 12/22/20 17:04 Ordered 650 mg PO Q4H PRN Acetaminophen [Tylenol] Med 12/22/20 17:04 Ordered 650 mg RECTAL Q4H PRN Albuterol [Proventil Neb Soln] Med 12/22/20 17:04 Ordered 2.5 mg NEB Q2H PRN Albuterol/Ipratropium [DuoNeb 3.0-0.5 MG/3 ML] Med 12/22/20 17:04 Ordered 3 ml NEB Q4H PRN Heparin Sodium Med 12/22/20 17:15 Ordered 5,000 units SUBCUT Q8H Insulin Lispro [HumaLOG] Med 12/22/20 17:15 Once 8 unit SUBCUT ONETIME ONE Omeprazole Med 12/23/20 06:00 Ordered 20 mg PO ACBREAKFAST Sodium Chloride 0.9% [Normal Saline] 1,000 ml Med 12/22/20 16:45 Active IV ASDIRECTED Sodium Chloride 0.9% [Saline Flush] Med 12/22/20 13:07 Active 10 ml FLUSH ASDIRECTED PRN cefTRIAXone [Rocephin] 2 gm Med 12/23/20 13:00 Ordered Sodium Chloride 0.9% [Normal Saline] 100 ml IV Q24H Blood Culture x2 Reflex Set [OM.PC] Stat Oth 12/22/20 13:04 Ordered Isolation [COMM] Routine Oth 12/22/20 16:23 Ordered Peripheral IV Insertion Adult [OM.PC] Routine Oth 12/22/20 13:07 Ordered Sequential Compression Device [OM.PC] Per Unit Routine Ot 12/22/20 16:59 Ordered Resuscitation Status Routine Resus Stat 12/22/20 16:55 Ordered Medication Orders Acetaminophen (Acetaminophen 325 Mg Tab) 650 mg PO Q4H PRN PRN Reason: Pain (Mild 1-3)/fever Acetaminophen (Acetaminophen 650 Mg Supp) 650 mg RECTAL Q4H PRN PRN Reason: Pain (mild 1-3) Albuterol (Albuterol 0.083% 2.5 Mg/3 Ml Neb Soln) 2.5 mg NEB Q2H PRN PRN Reason: Shortness Of Breath/wheezing Albuterol/Ipratropium (Albuterol/Ipratropium 3.0-0.5 Mg/3 Ml Neb Soln) 3 ml NEB Q4H PRN PRN Reason: Shortness Of Breath/wheezing Heparin Sodium (Porcine) (Heparin Sodium 5,000 Units/Ml Vial) 5,000 units SUBCUT Q8H [facility] Sodium Chloride (Normal Saline) 1,000 mls @ 125 mls/hr IV ASDIRECTED ANKUR Ceftriaxone Sodium 2 gm/ (Sodium Chloride) 100 mls @ 200 mls/hr IV Q24H [facility] Insulin Human Lispro (Insulin Lispro 100 Unit/Ml) 8 unit SUBCUT ONETIME ONE Stop: 12/22/20 17:16 Pantoprazole Sodium (Pantoprazole 40 Mg Tab.Cr) 40 mg PO DAILY@0700 [facility] Sodium Chloride (Sodium Chloride 0.9% 10 Ml Syringe) 10 ml FLUSH ASDIRECTED PRN PRN Reason: Keep Vein Open Last Admin: 12/22/20 13:11 Dose: 10 ml Documented by: JEWELS Assessment/Plan Comment:: Assessment 89-year-old female with severe dementia presents with severe sepsis secondary to UTI. Severe sepsis Complicated UTI * On presentation to the emergency department patient was febrile, tachycardic, tachypneic, and hypoxemia * Initial lactic acid was 5.2 with a repeat of 2.8 3 hours later and after fluid bolus. * Acute on chronic renal insufficiency, lactic acid, elevated BNP showing organ dysfunction * Anion gap elevated at 21 and serum bicarb of 20 * Normal white count of 8.35, C-reactive protein 19.2 * UA: WBC greater than 100 * Started on Rocephin in the ER after getting blood cultures and urine culture * Given 30 mL/kg IV fluid bolus Plan * Admit to ICU * Follow lactic acid * Normal saline at 125 mL/h * Rocephin 2 g every 24 hours * Await blood and urine cultures * Discussed with daughter high mortality rate with severe sepsis and 89-year-old with multiple medical problems. We will keep her informed of any complications occur during treatment. Acute on chronic renal insufficiency * Secondary to sepsis * Creatinine 2.2 and estimated GFR of 21 * No recent renal function available, but in February 2017 estimated GFR was 47 Plan * Continue IV fluids * Follow kidney function closely * Renally dose medications and avoid nephrotoxic medications Hyperglycemia, history of prediabetes * Blood sugar 489 on presentation * Unknown hemoglobin A1c * Fluid bolus done in ER Plan * Sliding scale insulin * Bedside glucose monitoring 4 times daily * Get hemoglobin A1c CHF * proBNP is 8711 * Chest x-ray shows no acute findings * proBNP likely artificially elevated secondary to renal dysfunction, but still significantly elevated * Fluid bolus secondary to sepsis going to exacerbate CHF * Patient is at high risk for pulmonary edema Plan * Currently on 4 L nasal cannula * Stovall catheter for strict I's and O's will for sepsis and CHF * Monitor respiratory status closely Chronic: Hypertension, GERD, colitis, chronic renal insufficiency, anxiety, dementia, depression, vitamin D deficiencies, behavioral disturbances, anemia VTE prophylaxis with heparin CODE STATUS: DNR/DNI Prognosis is very poor. Discussed with daughter who is POA and she voices understanding. - Mortality Measure Prognosis:: Poor (High risk for mortality)
[2020-12-22] MEDS: Heparin Sodium 5,000 Units/ML Vial SUBCUT SCH (18:05)
[2020-12-22 20:30] LABS: HEMOGLOBIN A1C 8.5 %
[2020-12-22] MEDS ORDERED: Insulin Lispro 100 Units/ML 3 ML Vial SUBCUT SCH (22:00)
[2020-12-22] MEDS ORDERED: Insulin Lispro 100 UNIT/ML 10 ML Vial SUBCUT SCH (22:00)
[2020-12-23] MEDS ORDERED: Furosemide 20 MG/2 ML VIAL IVPUSH ONE ×2 (00:03→22:57)
[2020-12-23] MEDS ORDERED: Sodium Chloride 0.45% 1,000 ML IV SCH (00:15)
[2020-12-23] MEDS: Potassium Chloride 10 MEQ in Premix Bag 1 BAG IV SCH ×4 (00:21→03:35)
[2020-12-23] MEDS ORDERED: Insulin Lispro 100 UNIT/ML 10 ML Vial SUBCUT ONE (02:10)
[2020-12-23] MEDS: Insulin Lispro 100 UNIT/ML 10 ML Vial SUBCUT SCH ×5 (06:12→21:24)
[2020-12-23] MEDS: Heparin Sodium 5,000 Units/ML Vial SUBCUT SCH ×2 (06:12→18:08)
[2020-12-23] MEDS ORDERED: Pantoprazole 40 MG Tab.CR PO SCH (07:00)
[2020-12-23] MEDS ORDERED: Furosemide 40 MG/4 ML VIAL IVPUSH ONE (08:30)
[2020-12-23] MEDS: Pantoprazole 40 MG Vial IVPUSH SCH (08:45)
[2020-12-23] MEDS: Potassium Chloride 20 MEQ in Dextrose 5% in Water 1,000 ML IV SCH ×2 (11:04)
[2020-12-23] MEDS: cefTRIAXone 2 GM in Sodium Chloride 0.9% 100 ML IV SCH (12:16)
--- NOTE | 2020-12-23 13:11 | PCM.PN ---
- General Info Date of Service: 12/23/20 Admission Dx/Problem (Free Text): Admission Diagnosis/Problem Admission Diagnosis/Problem Sepsis Subjective Update: Improved overnight. She had one low blood pressure which appears to be an outlier. After fluids and antibiotics her lactic acid did decrease to 2.0. Blood sugars have improved down to mid 100s to 200s. Anion gap has dropped to 15.6 and kidney function has improved. Patient appears to be more awake and al ert today. - Review of Systems General: Reports: Other (Nonverbal) - Patient Data Vitals - Most Recent: Last Vital Signs Temp 97.2 F 12/23/20 12:00 Pulse 80 12/23/20 10:00 Resp 15 12/23/20 12:00 BP 84/52 L 12/23/20 12:00 Pulse Ox 91 L 12/23/20 12:00 Weight - Most Recent: 131 lb 11.196 oz I&O - Last 24 Hours: Intake & Output 12/22/20 12/23/20 12/23/20 22:59 06:59 14:59 Intake Total 2041 1300 Output Total 305 580 875 Balance -305 1461 425 Lab Results Last 24 Hours: Laboratory Results - last 24 hr 12/22/20 12/22/20 12/22/20 Range/Units 12:55 12:55 12:55 WBC 8.35 (3.98-10.04) K/mm3 RBC 4.54 (3.98-5.22) M/mm3 Hgb 13.4 D (11.2-15.7) gm/dl Hct 43.5 (34.1-44.9) % MCV 95.8 H D (79.4-94.8) fl MCH 29.5 (25.6-32.2) pg MCHC 30.8 L (32.2-35.5) g/dl RDW Std Deviation 50.5 H (36.4-46.3) fL Plt Count 345 D (182-369) K/mm3 MPV 11.9 (9.4-12.3) fl Neut % (Auto) 65.6 (34.0-71.1) % Lymph % (Auto) 18.8 L (19.3-51.7) % [place] % (Auto) 14.6 H (4.7-12.5) % Eos % (Auto) 0 L (0.7-5.8) Baso % (Auto) 0.4 (0.1-1.2) % Neut # (Auto) 5.48 (1.56-6.13) K/mm3 Lymph # (Auto) 1.57 (1.18-3.74) K/mm3 [place] # (Auto) 1.22 H (0.24-0.36) K/mm3 Eos # (Auto) 0.00 L (0.04-0.36) K/mm3 Baso # (Auto) 0.03 (0.01-0.08) K/mm3 Sodium 145 (136-145) mEq/L Potassium 4.2 (3.5-5.1) mEq/L Chloride 108 H (98-107) mEq/L Carbon Dioxide 20 L (21-32) mEq/L Anion Gap 21.2 H (5-15) BUN 43 H D (7-18) mg/dL Creatinine 2.2 H (0.55-1.02) mg/dL Est Cr Clr Drug Dosing 15.26 mL/min Estimated GFR (MDRD) 21 (>60) mL/min BUN/Creatinine Ratio 19.5 H (14-18) Glucose 489 H (83-115) mg/dL POC Glucose (83-110) mg/dL Hemoglobin A1c ( - 5.6) % Lactic Acid (0.4-2.0) mmol/L Calcium 9.3 (8.5-10.1) mg/dL Magnesium (1.8-2.4) mg/dl Total Bilirubin 1.1 H (0.2-1.0) mg/dL AST 30 (15-37) U/L ALT 60 H (14-59) U/L Alkaline Phosphatase 104 (46-116) U/L C-Reactive Protein 19.2 H* (<1.0) mg/dL NT-Pro-B Natriuret Pep 8711 H (0-450) pg/mL Total Protein 8.5 H (6.4-8.2) g/dl Albumin 3.4 (3.4-5.0) g/dl Globulin 5.1 gm/dL Albumin/Globulin Ratio 0.7 L (1-2) TSH 3rd Generation (0.358-3.74) uIU/mL Urine Color (Yellow) Urine Appearance (Clear) Urine pH (5.0-8.0) Ur Specific [place] (1.005-1.030) Urine Protein (Negative) Urine Glucose (UA) (Negative) Urine Ketones (Negative) Urine Occult Blood (Negative) Urine Nitrite (Negative) Urine Bilirubin (Negative) Urine Urobilinogen (0.2-1.0) Ur Leukocyte Esterase (Negative) Urine RBC (0-5) /hpf Urine WBC (0-5) /hpf Ur Squamous Epith Cells (0-5) /hpf Amorphous Sediment (NOT SEEN) /hpf Urine Bacteria (FEW) /hpf Urine Mucus (FEW) /hpf Ketones (0.0-0.3) mM Influenza Type A RNA (NEGATIVE) Influenza Type B RNA (NEGATIVE) SARS-CoV-2 RNA (TRESSA) (NEGATIVE) 12/22/20 12/22/20 12/22/20 Range/Units 12:55 12:55 12:55 WBC (3.98-10.04) K/mm3 RBC (3.98-5.22) M/mm3 Hgb (11.2-15.7) gm/dl Hct (34.1-44.9) % MCV (79.4-94.8) fl MCH (25.6-32.2) pg MCHC (32.2-35.5) g/dl RDW Std Deviation (36.4-46.3) fL Plt Count (182-369) K/mm3 MPV (9.4-12.3) fl Neut % (Auto) (34.0-71.1) % Lymph % (Auto) (19.3-51.7) % [place] % (Auto) (4.7-12.5) % Eos % (Auto) (0.7-5.8) Baso % (Auto) (0.1-1.2) % Neut # (Auto) (1.56-6.13) K/mm3 Lymph # (Auto) (1.18-3.74) K/mm3 [place] # (Auto) (0.24-0.36) K/mm3 Eos # (Auto) (0.04-0.36) K/mm3 Baso # (Auto) (0.01-0.08) K/mm3 Sodium Cancelled (136-145) mEq/L Potassium Cancelled (3.5-5.1) mEq/L Chloride Cancelled (98-107) mEq/L Carbon Dioxide Cancelled (21-32) mEq/L Anion Gap Cancelled (5-15) BUN Cancelled (7-18) mg/dL Creatinine Cancelled (0.55-1.02) mg/dL Est Cr Clr Drug Dosing Cancelled mL/min Estimated GFR (MDRD) Cancelled (>60) mL/min BUN/Creatinine Ratio Cancelled (14-18) Glucose Cancelled (83-115) mg/dL POC Glucose (83-110) mg/dL Hemoglobin A1c ( - 5.6) % Lactic Acid 5.2 H* (0.4-2.0) mmol/L Calcium Cancelled (8.5-10.1) mg/dL Magnesium (1.8-2.4) mg/dl Total Bilirubin (0.2-1.0) mg/dL AST (15-37) U/L ALT (14-59) U/L Alkaline Phosphatase (46-116) U/L C-Reactive Protein (<1.0) mg/dL NT-Pro-B Natriuret Pep (0-450) pg/mL Total Protein (6.4-8.2) g/dl Albumin (3.4-5.0) g/dl Globulin gm/dL Albumin/Globulin Ratio (1-2) TSH 3rd Generation 3.245 (0.358-3.74) uIU/mL Urine Color (Yellow) Urine Appearance (Clear) Urine pH (5.0-8.0) Ur Specific [place] (1.005-1.030) Urine Protein (Negative) Urine Glucose (UA) (Negative) Urine Ketones (Negative) Urine Occult Blood (Negative) Urine Nitrite (Negative) Urine Bilirubin (Negative) Urine Urobilinogen (0.2-1.0) Ur Leukocyte Esterase (Negative) Urine RBC (0-5) /hpf Urine WBC (0-5) /hpf Ur Squamous Epith Cells (0-5) /hpf Amorphous Sediment (NOT SEEN) /hpf Urine Bacteria (FEW) /hpf Urine Mucus (FEW) /hpf Ketones 0.67 (0.0-0.3) mM Influenza Type A RNA (NEGATIVE) Influenza Type B RNA (NEGATIVE) SARS-CoV-2 RNA (TRESSA) (NEGATIVE) 12/22/20 12/22/20 12/22/20 Range/Units 12:55 13:08 13:10 WBC (3.98-10.04) K/mm3 RBC (3.98-5.22) M/mm3 Hgb (11.2-15.7) gm/dl Hct (34.1-44.9) % MCV (79.4-94.8) fl MCH (25.6-32.2) pg MCHC (32.2-35.5) g/dl RDW Std Deviation (36.4-46.3) fL Plt Count (182-369) K/mm3 MPV (9.4-12.3) fl Neut % (Auto) (34.0-71.1) % Lymph % (Auto) (19.3-51.7) % [place] % (Auto) (4.7-12.5) % Eos % (Auto) (0.7-5.8) Baso % (Auto) (0.1-1.2) % Neut # (Auto) (1.56-6.13) K/mm3 Lymph # (Auto) (1.18-3.74) K/mm3 [place] # (Auto) (0.24-0.36) K/mm3 Eos # (Auto) (0.04-0.36) K/mm3 Baso # (Auto) (0.01-0.08) K/mm3 Sodium (136-145) mEq/L Potassium (3.5-5.1) mEq/L Chloride (98-107) mEq/L Carbon Dioxide (21-32) mEq/L Anion Gap (5-15) BUN (7-18) mg/dL Creatinine (0.55-1.02) mg/dL Est Cr Clr Drug Dosing mL/min Estimated GFR (MDRD) (>60) mL/min BUN/Creatinine Ratio (14-18) Glucose (83-115) mg/dL POC Glucose (83-110) mg/dL Hemoglobin A1c 8.5 H ( - 5.6) % Lactic Acid (0.4-2.0) mmol/L Calcium (8.5-10.1) mg/dL Magnesium (1.8-2.4) mg/dl Total Bilirubin (0.2-1.0) mg/dL AST (15-37) U/L ALT (14-59) U/L Alkaline Phosphatase (46-116) U/L C-Reactive Protein (<1.0) mg/dL NT-Pro-B Natriuret Pep (0-450) pg/mL Total Protein (6.4-8.2) g/dl Albumin (3.4-5.0) g/dl Globulin gm/dL Albumin/Globulin Ratio (1-2) TSH 3rd Generation (0.358-3.74) uIU/mL Urine Color Dark yellow (Yellow) Urine Appearance Cloudy H (Clear) Urine pH 6.0 (5.0-8.0) Ur Specific [place] > or = 1.030 (1.005-1.030) Urine Protein 3+ H (Negative) Urine Glucose (UA) 2+ H (Negative) Urine Ketones Trace H (Negative) Urine Occult Blood 3+ H (Negative) Urine Nitrite Negative (Negative) Urine Bilirubin 1+ H (Negative) Urine Urobilinogen 1.0 (0.2-1.0) Ur Leukocyte Esterase 3+ H (Negative) Urine RBC 20-30 H (0-5) /hpf Urine WBC >100 H (0-5) /hpf Ur Squamous Epith Cells 0-5 (0-5) /hpf Amorphous Sediment Moderate H (NOT SEEN) /hpf Urine Bacteria Many H (FEW) /hpf Urine Mucus Not seen (FEW) /hpf Ketones (0.0-0.3) mM Influenza Type A RNA Negative (NEGATIVE) Influenza Type B RNA Negative (NEGATIVE) SARS-CoV-2 RNA (TRESSA) Negative (NEGATIVE) 12/22/20 12/22/20 12/22/20 Range/Units 16:02 19:28 19:34 WBC (3.98-10.04) K/mm3 RBC (3.98-5.22) M/mm3 Hgb (11.2-15.7) gm/dl Hct (34.1-44.9) % MCV (79.4-94.8) fl MCH (25.6-32.2) pg MCHC (32.2-35.5) g/dl RDW Std Deviation (36.4-46.3) fL Plt Count (182-369) K/mm3 MPV (9.4-12.3) fl Neut % (Auto) (34.0-71.1) % Lymph % (Auto) (19.3-51.7) % [place] % (Auto) (4.7-12.5) % Eos % (Auto) (0.7-5.8) Baso % (Auto) (0.1-1.2) % Neut # (Auto) (1.56-6.13) K/mm3 Lymph # (Auto) (1.18-3.74) K/mm3 [place] # (Auto) (0.24-0.36) K/mm3 Eos # (Auto) (0.04-0.36) K/mm3 Baso # (Auto) (0.01-0.08) K/mm3 Sodium (136-145) mEq/L Potassium (3.5-5.1) mEq/L Chloride (98-107) mEq/L Carbon Dioxide (21-32) mEq/L Anion Gap (5-15) BUN (7-18) mg/dL Creatinine (0.55-1.02) mg/dL Est Cr Clr Drug Dosing mL/min Estimated GFR (MDRD) (>60) mL/min BUN/Creatinine Ratio (14-18) Glucose (83-115) mg/dL POC Glucose 376 H (83-110) mg/dL Hemoglobin A1c ( - 5.6) % Lactic Acid 2.8 H* 4.1 H* (0.4-2.0) mmol/L Calcium (8.5-10.1) mg/dL Magnesium (1.8-2.4) mg/dl Total Bilirubin (0.2-1.0) mg/dL AST (15-37) U/L ALT (14-59) U/L Alkaline Phosphatase (46-116) U/L C-Reactive Protein (<1.0) mg/dL NT-Pro-B Natriuret Pep (0-450) pg/mL Total Protein (6.4-8.2) g/dl Albumin (3.4-5.0) g/dl Globulin gm/dL Albumin/Globulin Ratio (1-2) TSH 3rd Generation (0.358-3.74) uIU/mL Urine Color (Yellow) Urine Appearance (Clear) Urine pH (5.0-8.0) Ur Specific [place] (1.005-1.030) Urine Protein (Negative) Urine Glucose (UA) (Negative) Urine Ketones (Negative) Urine Occult Blood (Negative) Urine Nitrite (Negative) Urine Bilirubin (Negative) Urine Urobilinogen (0.2-1.0) Ur Leukocyte Esterase (Negative) Urine RBC (0-5) /hpf Urine WBC (0-5) /hpf Ur Squamous Epith Cells (0-5) /hpf Amorphous Sediment (NOT SEEN) /hpf Urine Bacteria (FEW) /hpf Urine Mucus (FEW) /hpf Ketones (0.0-0.3) mM Influenza Type A RNA (NEGATIVE) Influenza Type B RNA (NEGATIVE) SARS-CoV-2 RNA (TRESSA) (NEGATIVE) 12/22/20 12/22/20 12/22/20 Range/Units 22:56 23:03 23:03 WBC (3.98-10.04) K/mm3 RBC (3.98-5.22) M/mm3 Hgb (11.2-15.7) gm/dl Hct (34.1-44.9) % MCV (79.4-94.8) fl MCH (25.6-32.2) pg MCHC (32.2-35.5) g/dl RDW Std Deviation (36.4-46.3) fL Plt Count (182-369) K/mm3 MPV (9.4-12.3) fl Neut % (Auto) (34.0-71.1) % Lymph % (Auto) (19.3-51.7) % [place] % (Auto) (4.7-12.5) % Eos % (Auto) (0.7-5.8) Baso % (Auto) (0.1-1.2) % Neut # (Auto) (1.56-6.13) K/mm3 Lymph # (Auto) (1.18-3.74) K/mm3 [place] # (Auto) (0.24-0.36) K/mm3 Eos # (Auto) (0.04-0.36) K/mm3 Baso # (Auto) (0.01-0.08) K/mm3 Sodium 151 H (136-145) mEq/L Potassium 3.3 L (3.5-5.1) mEq/L Chloride 116 H (98-107) mEq/L Carbon Dioxide 20 L (21-32) mEq/L Anion Gap 18.3 H (5-15) BUN 36 H (7-18) mg/dL Creatinine 1.5 H (0.55-1.02) mg/dL Est Cr Clr Drug Dosing 20.50 mL/min Estimated GFR (MDRD) 33 (>60) mL/min BUN/Creatinine Ratio 24.0 H (14-18) Glucose 268 H (83-115) mg/dL POC Glucose 309 H (83-110) mg/dL Hemoglobin A1c ( - 5.6) % Lactic Acid 2.7 H* (0.4-2.0) mmol/L Calcium 7.5 L D (8.5-10.1) mg/dL Magnesium (1.8-2.4) mg/dl Total Bilirubin (0.2-1.0) mg/dL AST (15-37) U/L ALT (14-59) U/L Alkaline Phosphatase (46-116) U/L C-Reactive Protein (<1.0) mg/dL NT-Pro-B Natriuret Pep (0-450) pg/mL Total Protein (6.4-8.2) g/dl Albumin (3.4-5.0) g/dl Globulin gm/dL Albumin/Globulin Ratio (1-2) TSH 3rd Generation (0.358-3.74) uIU/mL Urine Color (Yellow) Urine Appearance (Clear) Urine pH (5.0-8.0) Ur Specific [place] (1.005-1.030) Urine Protein (Negative) Urine Glucose (UA) (Negative) Urine Ketones (Negative) Urine Occult Blood (Negative) Urine Nitrite (Negative) Urine Bilirubin (Negative) Urine Urobilinogen (0.2-1.0) Ur Leukocyte Esterase (Negative) Urine RBC (0-5) /hpf Urine WBC (0-5) /hpf Ur Squamous Epith Cells (0-5) /hpf Amorphous Sediment (NOT SEEN) /hpf Urine Bacteria (FEW) /hpf Urine Mucus (FEW) /hpf Ketones (0.0-0.3) mM Influenza Type A RNA (NEGATIVE) Influenza Type B RNA (NEGATIVE) SARS-CoV-2 RNA (TRESSA) (NEGATIVE) 12/23/20 12/23/20 12/23/20 Range/Units 02:00 02:06 05:40 WBC 6.38 (3.98-10.04) K/mm3 RBC 3.57 L (3.98-5.22) M/mm3 Hgb 10.6 L D (11.2-15.7) gm/dl Hct 34.5 (34.1-44.9) % MCV 96.6 H (79.4-94.8) fl MCH 29.7 (25.6-32.2) pg MCHC 30.7 L (32.2-35.5) g/dl RDW Std Deviation 48.9 H (36.4-46.3) fL Plt Count 213 D (182-369) K/mm3 MPV 12.0 (9.4-12.3) fl Neut % (Auto) 62.7 (34.0-71.1) % Lymph % (Auto) 24.6 (19.3-51.7) % [place] % (Auto) 11.9 (4.7-12.5) % Eos % (Auto) 0.2 L (0.7-5.8) Baso % (Auto) 0.3 (0.1-1.2) % Neut # (Auto) 4.00 (1.56-6.13) K/mm3 Lymph # (Auto) 1.57 (1.18-3.74) K/mm3 [place] # (Auto) 0.76 H (0.24-0.36) K/mm3 Eos # (Auto) 0.01 L (0.04-0.36) K/mm3 Baso # (Auto) 0.02 (0.01-0.08) K/mm3 Sodium (136-145) mEq/L Potassium (3.5-5.1) mEq/L Chloride (98-107) mEq/L Carbon Dioxide (21-32) mEq/L Anion Gap (5-15) BUN (7-18) mg/dL Creatinine (0.55-1.02) mg/dL Est Cr Clr Drug Dosing mL/min Estimated GFR (MDRD) (>60) mL/min BUN/Creatinine Ratio (14-18) Glucose (83-115) mg/dL POC Glucose 208 H (83-110) mg/dL Hemoglobin A1c ( - 5.6) % Lactic Acid 2.0 (0.4-2.0) mmol/L Calcium (8.5-10.1) mg/dL Magnesium (1.8-2.4) mg/dl Total Bilirubin (0.2-1.0) mg/dL AST (15-37) U/L ALT (14-59) U/L Alkaline Phosphatase (46-116) U/L C-Reactive Protein (<1.0) mg/dL NT-Pro-B Natriuret Pep (0-450) pg/mL Total Protein (6.4-8.2) g/dl Albumin (3.4-5.0) g/dl Globulin gm/dL Albumin/Globulin Ratio (1-2) TSH 3rd Generation (0.358-3.74) uIU/mL Urine Color (Yellow) Urine Appearance (Clear) Urine pH (5.0-8.0) Ur Specific [place] (1.005-1.030) Urine Protein (Negative) Urine Glucose (UA) (Negative) Urine Ketones (Negative) Urine Occult Blood (Negative) Urine Nitrite (Negative) Urine Bilirubin (Negative) Urine Urobilinogen (0.2-1.0) Ur Leukocyte Esterase (Negative) Urine RBC (0-5) /hpf Urine WBC (0-5) /hpf Ur Squamous Epith Cells (0-5) /hpf Amorphous Sediment (NOT SEEN) /hpf Urine Bacteria (FEW) /hpf Urine Mucus (FEW) /hpf Ketones (0.0-0.3) mM Influenza Type A RNA (NEGATIVE) Influenza Type B RNA (NEGATIVE) SARS-CoV-2 RNA (TRESSA) (NEGATIVE) 12/23/20 12/23/20 12/23/20 Range/Units 05:40 05:52 08:17 WBC (3.98-10.04) K/mm3 RBC (3.98-5.22) M/mm3 Hgb (11.2-15.7) gm/dl Hct (34.1-44.9) % MCV (79.4-94.8) fl MCH (25.6-32.2) pg MCHC (32.2-35.5) g/dl RDW Std Deviation (36.4-46.3) fL Plt Count (182-369) K/mm3 MPV (9.4-12.3) fl Neut % (Auto) (34.0-71.1) % Lymph % (Auto) (19.3-51.7) % [place] % (Auto) (4.7-12.5) % Eos % (Auto) (0.7-5.8) Baso % (Auto) (0.1-1.2) % Neut # (Auto) (1.56-6.13) K/mm3 Lymph # (Auto) (1.18-3.74) K/mm3 [place] # (Auto) (0.24-0.36) K/mm3 Eos # (Auto) (0.04-0.36) K/mm3 Baso # (Auto) (0.01-0.08) K/mm3 Sodium 150 H (136-145) mEq/L Potassium 3.6 (3.5-5.1) mEq/L Chloride 116 H (98-107) mEq/L Carbon Dioxide 22 (21-32) mEq/L Anion Gap 15.6 H (5-15) BUN 31 H (7-18) mg/dL Creatinine 1.3 H (0.55-1.02) mg/dL Est Cr Clr Drug Dosing 23.66 mL/min Estimated GFR (MDRD) 39 (>60) mL/min BUN/Creatinine Ratio 23.8 H (14-18) Glucose 162 H (83-115) mg/dL POC Glucose 171 H 145 H (83-110) mg/dL Hemoglobin A1c ( - 5.6) % Lactic Acid (0.4-2.0) mmol/L Calcium 7.7 L (8.5-10.1) mg/dL Magnesium 2.0 (1.8-2.4) mg/dl Total Bilirubin 0.6 (0.2-1.0) mg/dL AST 27 (15-37) U/L ALT 41 (14-59) U/L Alkaline Phosphatase 71 (46-116) U/L C-Reactive Protein 15.5 H* (<1.0) mg/dL NT-Pro-B Natriuret Pep (0-450) pg/mL Total Protein 6.5 (6.4-8.2) g/dl Albumin 2.5 L (3.4-5.0) g/dl Globulin 4.0 gm/dL Albumin/Globulin Ratio 0.6 L (1-2) TSH 3rd Generation (0.358-3.74) uIU/mL Urine Color (Yellow) Urine Appearance (Clear) Urine pH (5.0-8.0) Ur Specific [place] (1.005-1.030) Urine Protein (Negative) Urine Glucose (UA) (Negative) Urine Ketones (Negative) Urine Occult Blood (Negative) Urine Nitrite (Negative) Urine Bilirubin (Negative) Urine Urobilinogen (0.2-1.0) Ur Leukocyte Esterase (Negative) Urine RBC (0-5) /hpf Urine WBC (0-5) /hpf Ur Squamous Epith Cells (0-5) /hpf Amorphous Sediment (NOT SEEN) /hpf Urine Bacteria (FEW) /hpf Urine Mucus (FEW) /hpf Ketones (0.0-0.3) mM Influenza Type A RNA (NEGATIVE) Influenza Type B RNA (NEGATIVE) SARS-CoV-2 RNA (TRESSA) (NEGATIVE) 12/23/20 Range/Units 11:27 WBC (3.98-10.04) K/mm3 RBC (3.98-5.22) M/mm3 Hgb (11.2-15.7) gm/dl Hct (34.1-44.9) % MCV (79.4-94.8) fl MCH (25.6-32.2) pg MCHC (32.2-35.5) g/dl RDW Std Deviation (36.4-46.3) fL Plt Count (182-369) K/mm3 MPV (9.4-12.3) fl Neut % (Auto) (34.0-71.1) % Lymph % (Auto) (19.3-51.7) % [place] % (Auto) (4.7-12.5) % Eos % (Auto) (0.7-5.8) Baso % (Auto) (0.1-1.2) % Neut # (Auto) (1.56-6.13) K/mm3 Lymph # (Auto) (1.18-3.74) K/mm3 [place] # (Auto) (0.24-0.36) K/mm3 Eos # (Auto) (0.04-0.36) K/mm3 Baso # (Auto) (0.01-0.08) K/mm3 Sodium (136-145) mEq/L Potassium (3.5-5.1) mEq/L Chloride (98-107) mEq/L Carbon Dioxide (21-32) mEq/L Anion Gap (5-15) BUN (7-18) mg/dL Creatinine (0.55-1.02) mg/dL Est Cr Clr Drug Dosing mL/min Estimated GFR (MDRD) (>60) mL/min BUN/Creatinine Ratio (14-18) Glucose (83-115) mg/dL POC Glucose 242 H (83-110) mg/dL Hemoglobin A1c ( - 5.6) % Lactic Acid (0.4-2.0) mmol/L Calcium (8.5-10.1) mg/dL Magnesium (1.8-2.4) mg/dl Total Bilirubin (0.2-1.0) mg/dL AST (15-37) U/L ALT (14-59) U/L Alkaline Phosphatase (46-116) U/L C-Reactive Protein (<1.0) mg/dL NT-Pro-B Natriuret Pep (0-450) pg/mL Total Protein (6.4-8.2) g/dl Albumin (3.4-5.0) g/dl Globulin gm/dL Albumin/Globulin Ratio (1-2) TSH 3rd Generation (0.358-3.74) uIU/mL Urine Color (Yellow) Urine Appearance (Clear) Urine pH (5.0-8.0) Ur Specific [place] (1.005-1.030) Urine Protein (Negative) Urine Glucose (UA) (Negative) Urine Ketones (Negative) Urine Occult Blood (Negative) Urine Nitrite (Negative) Urine Bilirubin (Negative) Urine Urobilinogen (0.2-1.0) Ur Leukocyte Esterase (Negative) Urine RBC (0-5) /hpf Urine WBC (0-5) /hpf Ur Squamous Epith Cells (0-5) /hpf Amorphous Sediment (NOT SEEN) /hpf Urine Bacteria (FEW) /hpf Urine Mucus (FEW) /hpf Ketones (0.0-0.3) mM Influenza Type A RNA (NEGATIVE) Influenza Type B RNA (NEGATIVE) SARS-CoV-2 RNA (TRESSA) (NEGATIVE) Jose Results Last 24 Hours: Microbiology 12/22/20 13:03 Aerobic Blood Culture - Preliminary Blood - Venous - Lab Draw NO GROWTH AFTER 1 DAY Anaerobic Blood Culture - Preliminary NO GROWTH AFTER 1 DAY 12/22/20 12:55 Aerobic Blood Culture - Preliminary Blood - Venous NO GROWTH AFTER 1 DAY Anaerobic Blood Culture - Preliminary NO GROWTH AFTER 1 DAY 12/22/20 13:10 Urine Culture - Preliminary Urine, Quick Cath (In-Out) Gram Negative Rods Med Orders - Current: Current Medications Acetaminophen (Acetaminophen 325 Mg Tab) 650 mg PO Q4H PRN PRN Reason: Pain (Mild 1-3)/fever Acetaminophen (Acetaminophen 650 Mg Supp) 650 mg RECTAL Q4H PRN PRN Reason: Pain (mild 1-3) Albuterol (Albuterol 0.083% 2.5 Mg/3 Ml Neb Soln) 2.5 mg NEB Q2H PRN PRN Reason: Shortness Of Breath/wheezing Albuterol/Ipratropium (Albuterol/Ipratropium 3.0-0.5 Mg/3 Ml Neb Soln) 3 ml NEB Q4H PRN PRN Reason: Shortness Of Breath/wheezing Heparin Sodium (Porcine) (Heparin Sodium 5,000 Units/Ml Vial) 5,000 units SUBCUT Q12H [facility] Last Admin: 12/23/20 06:12 Dose: 5,000 units Documented by: Ceftriaxone Sodium 2 gm/ (Sodium Chloride) 100 mls @ 200 mls/hr IV Q24H [facility] Last Admin: 12/23/20 12:16 Dose: 200 mls/hr Documented by: Potassium Chloride 20 meq/ (Dextrose/Water) 1,010 mls @ 75.75 mls/hr IV Q13H [facility] Last Admin: 12/23/20 11:04 Dose: 75.75 mls/hr Documented by: Insulin Human Lispro (Insulin Lispro 100 Unit/Ml) 0 unit SUBCUT QIDACANDBED [facility]; Protocol Last Admin: 12/23/20 12:16 Dose: 2 unit Documented by: Pantoprazole Sodium (Pantoprazole 40 Mg Vial) 40 mg IVPUSH DAILY [facility] Last Admin: 12/23/20 08:45 Dose: 40 mg Documented by: Sodium Chloride (Sodium Chloride 0.9% 10 Ml Syringe) 10 ml FLUSH ASDIRECTED PRN PRN Reason: Keep Vein Open Last Admin: 12/22/20 13:11 Dose: 10 ml Documented by: Discontinued Medications Acetaminophen (Acetaminophen 650 Mg Supp) 650 mg RECTAL NOW ONE Stop: 12/22/20 14:30 Last Admin: 12/22/20 15:05 Dose: 650 mg Documented by: Furosemide (Furosemide 20 Mg/2 Ml Vial) 20 mg IVPUSH ONETIME ONE Stop: 12/23/20 00:04 Last Admin: 12/23/20 00:27 Dose: 20 mg Documented by: Furosemide (Furosemide 40 Mg/4 Ml Vial) 40 mg IVPUSH NOW ONE Stop: 12/23/20 08:31 Last Admin: 12/23/20 08:42 Dose: 40 mg Documented by: Ceftriaxone Sodium 2 gm/ (Sodium Chloride) 100 mls @ 200 mls/hr IV ONETIME ONE Stop: 12/22/20 13:34 Last Admin: 12/22/20 13:11 Dose: 200 mls/hr Documented by: Sodium Chloride (Normal Saline) 1,000 mls @ 125 mls/hr IV ASDIRECTED [facility] Last Infusion: 12/22/20 14:00 Dose: 999 mls/hr Documented by: Sodium Chloride (Normal Saline) 1,000 mls @ 1,000 mls/hr IV ONETIME ONE Stop: 12/22/20 14:55 Last Admin: 12/22/20 15:05 Dose: 1,000 mls/hr Documented by: Sodium Chloride (Normal Saline) 1,000 mls @ 125 mls/hr IV ASDIRECTED [facility] Last Admin: 12/22/20 20:31 Dose: 150 mls/hr Documented by: Potassium Chloride 10 meq/ (Premix) 100 mls @ 100 mls/hr IV Q1H [facility] Stop: 12/23/20 04:14 Last Admin: 12/23/20 03:35 Dose: 100 mls/hr Documented by: Sodium Chloride (Sodium Chloride 0.45%) 1,000 mls @ 125 mls/hr IV ASDIRECTED [facility] Last Infusion: 12/23/20 06:00 Dose: 75 mls/hr Documented by: Insulin Human Lispro (Insulin Lispro 100 Unit/Ml) 8 unit SUBCUT ONETIME ONE Stop: 12/22/20 17:16 Last Admin: 12/22/20 18:05 Dose: 8 units Documented by: Insulin Human Lispro (Insulin Lispro 100 Units/Ml 3 Ml Vial) 0 unit SUBCUT QIDACANDBED [facility]; Protocol Insulin Human Lispro (Insulin Lispro 100 Unit/Ml) 0 unit SUBCUT QIDACANDBED [facility]; Protocol Last Admin: 12/22/20 23:10 Dose: 5 units Documented by: Insulin Human Lispro (Insulin Lispro 100 Unit/Ml) 10 unit SUBCUT ONETIME ONE Stop: 12/22/20 20:21 Last Admin: 12/22/20 20:28 Dose: 10 units Documented by: Insulin Human Lispro (Insulin Lispro 100 Unit/Ml) 2 unit SUBCUT ONETIME ONE; Protocol Stop: 12/23/20 02:11 Last Admin: 12/23/20 02:29 Dose: 2 units Documented by: Pantoprazole Sodium (Pantoprazole 40 Mg Tab.Cr) 40 mg PO DAILY@0700 [facility] Last Admin: 12/23/20 06:13 Dose: Not Given Documented by: - Exam Quality Assessment: Supplemental Oxygen General: Alert HEENT: Pupils Equal, Mucous Membr. Moist/[place] Neck: Supple Lungs: Normal Respiratory Effort, Crackles Cardiovascular: Regular Rate, Regular Rhythm GI/Abdominal Exam: Normal Bowel Sounds, Soft, Non-Tender, No Distention Extremities: Normal Inspection, Normal Range of Motion, No Pedal Edema, Normal Capillary Refill Psy/Mental Status: Alert, Normal Affect, Normal Mood - Patient Data Lab Results Last 24 hrs: Laboratory Results - last 24 hr 12/22/20 12/22/20 12/22/20 Range/Units 12:55 12:55 12:55 WBC 8.35 (3.98-10.04) K/mm3 RBC 4.54 (3.98-5.22) M/mm3 Hgb 13.4 D (11.2-15.7) gm/dl Hct 43.5 (34.1-44.9) % MCV 95.8 H D (79.4-94.8) fl MCH 29.5 (25.6-32.2) pg MCHC 30.8 L (32.2-35.5) g/dl RDW Std Deviation 50.5 H (36.4-46.3) fL Plt Count 345 D (182-369) K/mm3 MPV 11.9 (9.4-12.3) fl Neut % (Auto) 65.6 (34.0-71.1) % Lymph % (Auto) 18.8 L (19.3-51.7) % [place] % (Auto) 14.6 H (4.7-12.5) % Eos % (Auto) 0 L (0.7-5.8) Baso % (Auto) 0.4 (0.1-1.2) % Neut # (Auto) 5.48 (1.56-6.13) K/mm3 Lymph # (Auto) 1.57 (1.18-3.74) K/mm3 [place] # (Auto) 1.22 H (0.24-0.36) K/mm3 Eos # (Auto) 0.00 L (0.04-0.36) K/mm3 Baso # (Auto) 0.03 (0.01-0.08) K/mm3 Sodium 145 (136-145) mEq/L Potassium 4.2 (3.5-5.1) mEq/L Chloride 108 H (98-107) mEq/L Carbon Dioxide 20 L (21-32) mEq/L Anion Gap 21.2 H (5-15) BUN 43 H D (7-18) mg/dL Creatinine 2.2 H (0.55-1.02) mg/dL Est Cr Clr Drug Dosing 15.26 mL/min Estimated GFR (MDRD) 21 (>60) mL/min BUN/Creatinine Ratio 19.5 H (14-18) Glucose 489 H (83-115) mg/dL POC Glucose (83-110) mg/dL Hemoglobin A1c ( - 5.6) % Lactic Acid (0.4-2.0) mmol/L Calcium 9.3 (8.5-10.1) mg/dL Magnesium (1.8-2.4) mg/dl Total Bilirubin 1.1 H (0.2-1.0) mg/dL AST 30 (15-37) U/L ALT 60 H (14-59) U/L Alkaline Phosphatase 104 (46-116) U/L C-Reactive Protein 19.2 H* (<1.0) mg/dL NT-Pro-B Natriuret Pep 8711 H (0-450) pg/mL Total Protein 8.5 H (6.4-8.2) g/dl Albumin 3.4 (3.4-5.0) g/dl Globulin 5.1 gm/dL Albumin/Globulin Ratio 0.7 L (1-2) TSH 3rd Generation (0.358-3.74) uIU/mL Urine Color (Yellow) Urine Appearance (Clear) Urine pH (5.0-8.0) Ur Specific [place] (1.005-1.030) Urine Protein (Negative) Urine Glucose (UA) (Negative) Urine Ketones (Negative) Urine Occult Blood (Negative) Urine Nitrite (Negative) Urine Bilirubin (Negative) Urine Urobilinogen (0.2-1.0) Ur Leukocyte Esterase (Negative) Urine RBC (0-5) /hpf Urine WBC (0-5) /hpf Ur Squamous Epith Cells (0-5) /hpf Amorphous Sediment (NOT SEEN) /hpf Urine Bacteria (FEW) /hpf Urine Mucus (FEW) /hpf Ketones (0.0-0.3) mM Influenza Type A RNA (NEGATIVE) Influenza Type B RNA (NEGATIVE) SARS-CoV-2 RNA (TRESSA) (NEGATIVE) 12/22/20 12/22/20 12/22/20 Range/Units 12:55 12:55 12:55 WBC (3.98-10.04) K/mm3 RBC (3.98-5.22) M/mm3 Hgb (11.2-15.7) gm/dl Hct (34.1-44.9) % MCV (79.4-94.8) fl MCH (25.6-32.2) pg MCHC (32.2-35.5) g/dl RDW Std Deviation (36.4-46.3) fL Plt Count (182-369) K/mm3 MPV (9.4-12.3) fl Neut % (Auto) (34.0-71.1) % Lymph % (Auto) (19.3-51.7) % [place] % (Auto) (4.7-12.5) % Eos % (Auto) (0.7-5.8) Baso % (Auto) (0.1-1.2) % Neut # (Auto) (1.56-6.13) K/mm3 Lymph # (Auto) (1.18-3.74) K/mm3 [place] # (Auto) (0.24-0.36) K/mm3 Eos # (Auto) (0.04-0.36) K/mm3 Baso # (Auto) (0.01-0.08) K/mm3 Sodium Cancelled (136-145) mEq/L Potassium Cancelled (3.5-5.1) mEq/L Chloride Cancelled (98-107) mEq/L Carbon Dioxide Cancelled (21-32) mEq/L Anion Gap Cancelled (5-15) BUN Cancelled (7-18) mg/dL Creatinine Cancelled (0.55-1.02) mg/dL Est Cr Clr Drug Dosing Cancelled mL/min Estimated GFR (MDRD) Cancelled (>60) mL/min BUN/Creatinine Ratio Cancelled (14-18) Glucose Cancelled (83-115) mg/dL POC Glucose (83-110) mg/dL Hemoglobin A1c ( - 5.6) % Lactic Acid 5.2 H* (0.4-2.0) mmol/L Calcium Cancelled (8.5-10.1) mg/dL Magnesium (1.8-2.4) mg/dl Total Bilirubin (0.2-1.0) mg/dL AST (15-37) U/L ALT (14-59) U/L Alkaline Phosphatase (46-116) U/L C-Reactive Protein (<1.0) mg/dL NT-Pro-B Natriuret Pep (0-450) pg/mL Total Protein (6.4-8.2) g/dl Albumin (3.4-5.0) g/dl Globulin gm/dL Albumin/Globulin Ratio (1-2) TSH 3rd Generation 3.245 (0.358-3.74) uIU/mL Urine Color (Yellow) Urine Appearance (Clear) Urine pH (5.0-8.0) Ur Specific [place] (1.005-1.030) Urine Protein (Negative) Urine Glucose (UA) (Negative) Urine Ketones (Negative) Urine Occult Blood (Negative) Urine Nitrite (Negative) Urine Bilirubin (Negative) Urine Urobilinogen (0.2-1.0) Ur Leukocyte Esterase (Negative) Urine RBC (0-5) /hpf Urine WBC (0-5) /hpf Ur Squamous Epith Cells (0-5) /hpf Amorphous Sediment (NOT SEEN) /hpf Urine Bacteria (FEW) /hpf Urine Mucus (FEW) /hpf Ketones 0.67 (0.0-0.3) mM Influenza Type A RNA (NEGATIVE) Influenza Type B RNA (NEGATIVE) SARS-CoV-2 RNA (TRESSA) (NEGATIVE) 12/22/20 12/22/20 12/22/20 Range/Units 12:55 13:08 13:10 WBC (3.98-10.04) K/mm3 RBC (3.98-5.22) M/mm3 Hgb (11.2-15.7) gm/dl Hct (34.1-44.9) % MCV (79.4-94.8) fl MCH (25.6-32.2) pg MCHC (32.2-35.5) g/dl RDW Std Deviation (36.4-46.3) fL Plt Count (182-369) K/mm3 MPV (9.4-12.3) fl Neut % (Auto) (34.0-71.1) % Lymph % (Auto) (19.3-51.7) % [place] % (Auto) (4.7-12.5) % Eos % (Auto) (0.7-5.8) Baso % (Auto) (0.1-1.2) % Neut # (Auto) (1.56-6.13) K/mm3 Lymph # (Auto) (1.18-3.74) K/mm3 [place] # (Auto) (0.24-0.36) K/mm3 Eos # (Auto) (0.04-0.36) K/mm3 Baso # (Auto) (0.01-0.08) K/mm3 Sodium (136-145) mEq/L Potassium (3.5-5.1) mEq/L Chloride (98-107) mEq/L Carbon Dioxide (21-32) mEq/L Anion Gap (5-15) BUN (7-18) mg/dL Creatinine (0.55-1.02) mg/dL Est Cr Clr Drug Dosing mL/min Estimated GFR (MDRD) (>60) mL/min BUN/Creatinine Ratio (14-18) Glucose (83-115) mg/dL POC Glucose (83-110) mg/dL Hemoglobin A1c 8.5 H ( - 5.6) % Lactic Acid (0.4-2.0) mmol/L Calcium (8.5-10.1) mg/dL Magnesium (1.8-2.4) mg/dl Total Bilirubin (0.2-1.0) mg/dL AST (15-37) U/L ALT (14-59) U/L Alkaline Phosphatase (46-116) U/L C-Reactive Protein (<1.0) mg/dL NT-Pro-B Natriuret Pep (0-450) pg/mL Total Protein (6.4-8.2) g/dl Albumin (3.4-5.0) g/dl Globulin gm/dL Albumin/Globulin Ratio (1-2) TSH 3rd Generation (0.358-3.74) uIU/mL Urine Color Dark yellow (Yellow) Urine Appearance Cloudy H (Clear) Urine pH 6.0 (5.0-8.0) Ur Specific [place] > or = 1.030 (1.005-1.030) Urine Protein 3+ H (Negative) Urine Glucose (UA) 2+ H (Negative) Urine Ketones Trace H (Negative) Urine Occult Blood 3+ H (Negative) Urine Nitrite Negative (Negative) Urine Bilirubin 1+ H (Negative) Urine Urobilinogen 1.0 (0.2-1.0) Ur Leukocyte Esterase 3+ H (Negative) Urine RBC 20-30 H (0-5) /hpf Urine WBC >100 H (0-5) /hpf Ur Squamous Epith Cells 0-5 (0-5) /hpf Amorphous Sediment Moderate H (NOT SEEN) /hpf Urine Bacteria Many H (FEW) /hpf Urine Mucus Not seen (FEW) /hpf Ketones (0.0-0.3) mM Influenza Type A RNA Negative (NEGATIVE) Influenza Type B RNA Negative (NEGATIVE) SARS-CoV-2 RNA (TRESSA) Negative (NEGATIVE) 12/22/20 12/22/20 12/22/20 Range/Units 16:02 19:28 19:34 WBC (3.98-10.04) K/mm3 RBC (3.98-5.22) M/mm3 Hgb (11.2-15.7) gm/dl Hct (34.1-44.9) % MCV (79.4-94.8) fl MCH (25.6-32.2) pg MCHC (32.2-35.5) g/dl RDW Std Deviation (36.4-46.3) fL Plt Count (182-369) K/mm3 MPV (9.4-12.3) fl Neut % (Auto) (34.0-71.1) % Lymph % (Auto) (19.3-51.7) % [place] % (Auto) (4.7-12.5) % Eos % (Auto) (0.7-5.8) Baso % (Auto) (0.1-1.2) % Neut # (Auto) (1.56-6.13) K/mm3 Lymph # (Auto) (1.18-3.74) K/mm3 [place] # (Auto) (0.24-0.36) K/mm3 Eos # (Auto) (0.04-0.36) K/mm3 Baso # (Auto) (0.01-0.08) K/mm3 Sodium (136-145) mEq/L Potassium (3.5-5.1) mEq/L Chloride (98-107) mEq/L Carbon Dioxide (21-32) mEq/L Anion Gap (5-15) BUN (7-18) mg/dL Creatinine (0.55-1.02) mg/dL Est Cr Clr Drug Dosing mL/min Estimated GFR (MDRD) (>60) mL/min BUN/Creatinine Ratio (14-18) Glucose (83-115) mg/dL POC Glucose 376 H (83-110) mg/dL Hemoglobin A1c ( - 5.6) % Lactic Acid 2.8 H* 4.1 H* (0.4-2.0) mmol/L Calcium (8.5-10.1) mg/dL Magnesium (1.8-2.4) mg/dl Total Bilirubin (0.2-1.0) mg/dL AST (15-37) U/L ALT (14-59) U/L Alkaline Phosphatase (46-116) U/L C-Reactive Protein (<1.0) mg/dL NT-Pro-B Natriuret Pep (0-450) pg/mL Total Protein (6.4-8.2) g/dl Albumin (3.4-5.0) g/dl Globulin gm/dL Albumin/Globulin Ratio (1-2) TSH 3rd Generation (0.358-3.74) uIU/mL Urine Color (Yellow) Urine Appearance (Clear) Urine pH (5.0-8.0) Ur Specific [place] (1.005-1.030) Urine Protein (Negative) Urine Glucose (UA) (Negative) Urine Ketones (Negative) Urine Occult Blood (Negative) Urine Nitrite (Negative) Urine Bilirubin (Negative) Urine Urobilinogen (0.2-1.0) Ur Leukocyte Esterase (Negative) Urine RBC (0-5) /hpf Urine WBC (0-5) /hpf Ur Squamous Epith Cells (0-5) /hpf Amorphous Sediment (NOT SEEN) /hpf Urine Bacteria (FEW) /hpf Urine Mucus (FEW) /hpf Ketones (0.0-0.3) mM Influenza Type A RNA (NEGATIVE) Influenza Type B RNA (NEGATIVE) SARS-CoV-2 RNA (TRESSA) (NEGATIVE) 12/22/20 12/22/20 12/22/20 Range/Units 22:56 23:03 23:03 WBC (3.98-10.04) K/mm3 RBC (3.98-5.22) M/mm3 Hgb (11.2-15.7) gm/dl Hct (34.1-44.9) % MCV (79.4-94.8) fl MCH (25.6-32.2) pg MCHC (32.2-35.5) g/dl RDW Std Deviation (36.4-46.3) fL Plt Count (182-369) K/mm3 MPV (9.4-12.3) fl Neut % (Auto) (34.0-71.1) % Lymph % (Auto) (19.3-51.7) % [place] % (Auto) (4.7-12.5) % Eos % (Auto) (0.7-5.8) Baso % (Auto) (0.1-1.2) % Neut # (Auto) (1.56-6.13) K/mm3 Lymph # (Auto) (1.18-3.74) K/mm3 [place] # (Auto) (0.24-0.36) K/mm3 Eos # (Auto) (0.04-0.36) K/mm3 Baso # (Auto) (0.01-0.08) K/mm3 Sodium 151 H (136-145) mEq/L Potassium 3.3 L (3.5-5.1) mEq/L Chloride 116 H (98-107) mEq/L Carbon Dioxide 20 L (21-32) mEq/L Anion Gap 18.3 H (5-15) BUN 36 H (7-18) mg/dL Creatinine 1.5 H (0.55-1.02) mg/dL Est Cr Clr Drug Dosing 20.50 mL/min Estimated GFR (MDRD) 33 (>60) mL/min BUN/Creatinine Ratio 24.0 H (14-18) Glucose 268 H (83-115) mg/dL POC Glucose 309 H (83-110) mg/dL Hemoglobin A1c ( - 5.6) % Lactic Acid 2.7 H* (0.4-2.0) mmol/L Calcium 7.5 L D (8.5-10.1) mg/dL Magnesium (1.8-2.4) mg/dl Total Bilirubin (0.2-1.0) mg/dL AST (15-37) U/L ALT (14-59) U/L Alkaline Phosphatase (46-116) U/L C-Reactive Protein (<1.0) mg/dL NT-Pro-B Natriuret Pep (0-450) pg/mL Total Protein (6.4-8.2) g/dl Albumin (3.4-5.0) g/dl Globulin gm/dL Albumin/Globulin Ratio (1-2) TSH 3rd Generation (0.358-3.74) uIU/mL Urine Color (Yellow) Urine Appearance (Clear) Urine pH (5.0-8.0) Ur Specific [place] (1.005-1.030) Urine Protein (Negative) Urine Glucose (UA) (Negative) Urine Ketones (Negative) Urine Occult Blood (Negative) Urine Nitrite (Negative) Urine Bilirubin (Negative) Urine Urobilinogen (0.2-1.0) Ur Leukocyte Esterase (Negative) Urine RBC (0-5) /hpf Urine WBC (0-5) /hpf Ur Squamous Epith Cells (0-5) /hpf Amorphous Sediment (NOT SEEN) /hpf Urine Bacteria (FEW) /hpf Urine Mucus (FEW) /hpf Ketones (0.0-0.3) mM Influenza Type A RNA (NEGATIVE) Influenza Type B RNA (NEGATIVE) SARS-CoV-2 RNA (TRESSA) (NEGATIVE) 12/23/20 12/23/20 12/23/20 Range/Units 02:00 02:06 05:40 WBC 6.38 (3.98-10.04) K/mm3 RBC 3.57 L (3.98-5.22) M/mm3 Hgb 10.6 L D (11.2-15.7) gm/dl Hct 34.5 (34.1-44.9) % MCV 96.6 H (79.4-94.8) fl MCH 29.7 (25.6-32.2) pg MCHC 30.7 L (32.2-35.5) g/dl RDW Std Deviation 48.9 H (36.4-46.3) fL Plt Count 213 D (182-369) K/mm3 MPV 12.0 (9.4-12.3) fl Neut % (Auto) 62.7 (34.0-71.1) % Lymph % (Auto) 24.6 (19.3-51.7) % [place] % (Auto) 11.9 (4.7-12.5) % Eos % (Auto) 0.2 L (0.7-5.8) Baso % (Auto) 0.3 (0.1-1.2) % Neut # (Auto) 4.00 (1.56-6.13) K/mm3 Lymph # (Auto) 1.57 (1.18-3.74) K/mm3 [place] # (Auto) 0.76 H (0.24-0.36) K/mm3 Eos # (Auto) 0.01 L (0.04-0.36) K/mm3 Baso # (Auto) 0.02 (0.01-0.08) K/mm3 Sodium (136-145) mEq/L Potassium (3.5-5.1) mEq/L Chloride (98-107) mEq/L Carbon Dioxide (21-32) mEq/L Anion Gap (5-15) BUN (7-18) mg/dL Creatinine (0.55-1.02) mg/dL Est Cr Clr Drug Dosing mL/min Estimated GFR (MDRD) (>60) mL/min BUN/Creatinine Ratio (14-18) Glucose (83-115) mg/dL POC Glucose 208 H (83-110) mg/dL Hemoglobin A1c ( - 5.6) % Lactic Acid 2.0 (0.4-2.0) mmol/L Calcium (8.5-10.1) mg/dL Magnesium (1.8-2.4) mg/dl Total Bilirubin (0.2-1.0) mg/dL AST (15-37) U/L ALT (14-59) U/L Alkaline Phosphatase (46-116) U/L C-Reactive Protein (<1.0) mg/dL NT-Pro-B Natriuret Pep (0-450) pg/mL Total Protein (6.4-8.2) g/dl Albumin (3.4-5.0) g/dl Globulin gm/dL Albumin/Globulin Ratio (1-2) TSH 3rd Generation (0.358-3.74) uIU/mL Urine Color (Yellow) Urine Appearance (Clear) Urine pH (5.0-8.0) Ur Specific [place] (1.005-1.030) Urine Protein (Negative) Urine Glucose (UA) (Negative) Urine Ketones (Negative) Urine Occult Blood (Negative) Urine Nitrite (Negative) Urine Bilirubin (Negative) Urine Urobilinogen (0.2-1.0) Ur Leukocyte Esterase (Negative) Urine RBC (0-5) /hpf Urine WBC (0-5) /hpf Ur Squamous Epith Cells (0-5) /hpf Amorphous Sediment (NOT SEEN) /hpf Urine Bacteria (FEW) /hpf Urine Mucus (FEW) /hpf Ketones (0.0-0.3) mM Influenza Type A RNA (NEGATIVE) Influenza Type B RNA (NEGATIVE) SARS-CoV-2 RNA (TRESSA) (NEGATIVE) 12/23/20 12/23/20 12/23/20 Range/Units 05:40 05:52 08:17 WBC (3.98-10.04) K/mm3 RBC (3.98-5.22) M/mm3 Hgb (11.2-15.7) gm/dl Hct (34.1-44.9) % MCV (79.4-94.8) fl MCH (25.6-32.2) pg MCHC (32.2-35.5) g/dl RDW Std Deviation (36.4-46.3) fL Plt Count (182-369) K/mm3 MPV (9.4-12.3) fl Neut % (Auto) (34.0-71.1) % Lymph % (Auto) (19.3-51.7) % [place] % (Auto) (4.7-12.5) % Eos % (Auto) (0.7-5.8) Baso % (Auto) (0.1-1.2) % Neut # (Auto) (1.56-6.13) K/mm3 Lymph # (Auto) (1.18-3.74) K/mm3 [place] # (Auto) (0.24-0.36) K/mm3 Eos # (Auto) (0.04-0.36) K/mm3 Baso # (Auto) (0.01-0.08) K/mm3 Sodium 150 H (136-145) mEq/L Potassium 3.6 (3.5-5.1) mEq/L Chloride 116 H (98-107) mEq/L Carbon Dioxide 22 (21-32) mEq/L Anion Gap 15.6 H (5-15) BUN 31 H (7-18) mg/dL Creatinine 1.3 H (0.55-1.02) mg/dL Est Cr Clr Drug Dosing 23.66 mL/min Estimated GFR (MDRD) 39 (>60) mL/min BUN/Creatinine Ratio 23.8 H (14-18) Glucose 162 H (83-115) mg/dL POC Glucose 171 H 145 H (83-110) mg/dL Hemoglobin A1c ( - 5.6) % Lactic Acid (0.4-2.0) mmol/L Calcium 7.7 L (8.5-10.1) mg/dL Magnesium 2.0 (1.8-2.4) mg/dl Total Bilirubin 0.6 (0.2-1.0) mg/dL AST 27 (15-37) U/L ALT 41 (14-59) U/L Alkaline Phosphatase 71 (46-116) U/L C-Reactive Protein 15.5 H* (<1.0) mg/dL NT-Pro-B Natriuret Pep (0-450) pg/mL Total Protein 6.5 (6.4-8.2) g/dl Albumin 2.5 L (3.4-5.0) g/dl Globulin 4.0 gm/dL Albumin/Globulin Ratio 0.6 L (1-2) TSH 3rd Generation (0.358-3.74) uIU/mL Urine Color (Yellow) Urine Appearance (Clear) Urine pH (5.0-8.0) Ur Specific [place] (1.005-1.030) Urine Protein (Negative) Urine Glucose (UA) (Negative) Urine Ketones (Negative) Urine Occult Blood (Negative) Urine Nitrite (Negative) Urine Bilirubin (Negative) Urine Urobilinogen (0.2-1.0) Ur Leukocyte Esterase (Negative) Urine RBC (0-5) /hpf Urine WBC (0-5) /hpf Ur Squamous Epith Cells (0-5) /hpf Amorphous Sediment (NOT SEEN) /hpf Urine Bacteria (FEW) /hpf Urine Mucus (FEW) /hpf Ketones (0.0-0.3) mM Influenza Type A RNA (NEGATIVE) Influenza Type B RNA (NEGATIVE) SARS-CoV-2 RNA (TRESSA) (NEGATIVE) 12/23/20 Range/Units 11:27 WBC (3.98-10.04) K/mm3 RBC (3.98-5.22) M/mm3 Hgb (11.2-15.7) gm/dl Hct (34.1-44.9) % MCV (79.4-94.8) fl MCH (25.6-32.2) pg MCHC (32.2-35.5) g/dl RDW Std Deviation (36.4-46.3) fL Plt Count (182-369) K/mm3 MPV (9.4-12.3) fl Neut % (Auto) (34.0-71.1) % Lymph % (Auto) (19.3-51.7) % [place] % (Auto) (4.7-12.5) % Eos % (Auto) (0.7-5.8) Baso % (Auto) (0.1-1.2) % Neut # (Auto) (1.56-6.13) K/mm3 Lymph # (Auto) (1.18-3.74) K/mm3 [place] # (Auto) (0.24-0.36) K/mm3 Eos # (Auto) (0.04-0.36) K/mm3 Baso # (Auto) (0.01-0.08) K/mm3 Sodium (136-145) mEq/L Potassium (3.5-5.1) mEq/L Chloride (98-107) mEq/L Carbon Dioxide (21-32) mEq/L Anion Gap (5-15) BUN (7-18) mg/dL Creatinine (0.55-1.02) mg/dL Est Cr Clr Drug Dosing mL/min Estimated GFR (MDRD) (>60) mL/min BUN/Creatinine Ratio (14-18) Glucose (83-115) mg/dL POC Glucose 242 H (83-110) mg/dL Hemoglobin A1c ( - 5.6) % Lactic Acid (0.4-2.0) mmol/L Calcium (8.5-10.1) mg/dL Magnesium (1.8-2.4) mg/dl Total Bilirubin (0.2-1.0) mg/dL AST (15-37) U/L ALT (14-59) U/L Alkaline Phosphatase (46-116) U/L C-Reactive Protein (<1.0) mg/dL NT-Pro-B Natriuret Pep (0-450) pg/mL Total Protein (6.4-8.2) g/dl Albumin (3.4-5.0) g/dl Globulin gm/dL Albumin/Globulin Ratio (1-2) TSH 3rd Generation (0.358-3.74) uIU/mL Urine Color (Yellow) Urine Appearance (Clear) Urine pH (5.0-8.0) Ur Specific [place] (1.005-1.030) Urine Protein (Negative) Urine Glucose (UA) (Negative) Urine Ketones (Negative) Urine Occult Blood (Negative) Urine Nitrite (Negative) Urine Bilirubin (Negative) Urine Urobilinogen (0.2-1.0) Ur Leukocyte Esterase (Negative) Urine RBC (0-5) /hpf Urine WBC (0-5) /hpf Ur Squamous Epith Cells (0-5) /hpf Amorphous Sediment (NOT SEEN) /hpf Urine Bacteria (FEW) /hpf Urine Mucus (FEW) /hpf Ketones (0.0-0.3) mM Influenza Type A RNA (NEGATIVE) Influenza Type B RNA (NEGATIVE) SARS-CoV-2 RNA (TRESSA) (NEGATIVE) Result Diagrams: 12/23/20 05:40 12/23/20 05:40 Jose Results Last 24 hrs: Microbiology 12/22/20 13:03 Aerobic Blood Culture - Preliminary Blood - Venous - Lab Draw NO GROWTH AFTER 1 DAY Anaerobic Blood Culture - Preliminary NO GROWTH AFTER 1 DAY 12/22/20 12:55 Aerobic Blood Culture - Preliminary Blood - Venous NO GROWTH AFTER 1 DAY Anaerobic Blood Culture - Preliminary NO GROWTH AFTER 1 DAY 12/22/20 13:10 Urine Culture - Preliminary Urine, Quick Cath (In-Out) Gram Negative Rods Sepsis Event Note - Evaluation Sepsis Screening Result: No Definite Risk - Focused Exam Vital Signs: Vital Signs Temp Temp Pulse Resp BP BP Pulse Ox 12/23/20 12:00 97.2 F 15 84/52 L 91 L 12/23/20 10:00 80 133/66 91 L 12/23/20 09:00 76 16 154/74 H 92 L 12/23/20 08:00 97.5 F 22 H 138/69 91 L 12/23/20 06:25 12/23/20 04:00 98.6 F 23 H 108/62 92 L Pulse Ox 12/23/20 12:00 12/23/20 10:00 12/23/20 09:00 12/23/20 08:00 12/23/20 06:25 91 L 12/23/20 04:00 - Problem List & Annotations (1) Severe sepsis SNOMED Code(s): 79164196 Code(s): A41.9 - SEPSIS, UNSPECIFIED ORGANISM; R65.20 - SEVERE SEPSIS WITHOUT SEPTIC SHOCK Status: Acute Current Visit: Yes (2) Acute on chronic renal failure SNOMED Code(s): 753670274 Code(s): N17.9 - ACUTE KIDNEY FAILURE, UNSPECIFIED; N18.9 - CHRONIC KIDNEY DISEASE, UNSPECIFIED Status: Acute Current Visit: Yes (3) Hyperglycemia SNOMED Code(s): 69136519 Code(s): R73.9 - HYPERGLYCEMIA, UNSPECIFIED Status: Acute Current Visit: Yes (4) Advanced dementia SNOMED Code(s): 63223179 Code(s): F03.90 - UNSPECIFIED DEMENTIA WITHOUT BEHAVIORAL DISTURBANCE Status: Acute Current Visit: Yes (5) Renal insufficiency SNOMED Code(s): 640947039, 361631544 Code(s): N28.9 - DISORDER OF KIDNEY AND URETER, UNSPECIFIED Status: Acute Current Visit: Yes - Problem List Review Problem List Initiated/Reviewed/Updated: Yes - My Orders Last 24 Hours: My Active Orders 12/22/20 16:23 Isolation [COMM] Routine 12/22/20 16:55 Bedrest Bedside Commode [RC] ASDIRECTED Resuscitation Status Routine 12/22/20 16:56 Oxygen Therapy [RC] PRN VTE/DVT Education [RC] PER UNIT ROUTINE 12/22/20 16:59 Sequential Compression Device [OM.PC] Per Unit Routine 12/22/20 17:04 Acetaminophen [TylenoL] 650 mg PO Q4H PRN Acetaminophen [Tylenol] 650 mg RECTAL Q4H PRN Albuterol [Proventil Neb Soln] 2.5 mg NEB Q2H PRN Albuterol/Ipratropium [DuoNeb 3.0-0.5 MG/3 ML] 3 ml NEB Q4H PRN 12/22/20 17:06 Antiembolic Devices [RC] RT Aerosol Therapy [RC] ASDIRECTED 12/22/20 18:00 Heparin Sodium 5,000 units SUBCUT Q12H 12/22/20 18:18 Blood Glucose Check, Bedside [RC] WITHMEALSANDBED 12/23/20 06:00 Insulin Lispro [HumaLOG] See Protocol SUBCUT QIDACANDBED 12/23/20 08:30 Potassium Chloride 20 meq Dextrose 5% in Water 1,000 ml IV Q13H 12/23/20 09:00 Pantoprazole [ProTONIX IV] 40 mg IVPUSH DAILY 12/23/20 10:39 [employer] Evaluation and Treatment [CONS] Routine 12/23/20 Lunch Pureed Diet [DIET] 12/23/20 13:00 cefTRIAXone [Rocephin] 2 gm Sodium Chloride 0.9% [Normal Saline] 100 ml IV Q24H 12/24/20 05:11 C-REACTIVE PROTEIN [CHEM] AM CBC WITH AUTO DIFF [HEME] AM CMP [COMPREHENSIVE METABOLIC PN,CMP] [CHEM] AM MAGNESIUM [CHEM] AM PHOSPHORUS [CHEM] AM 12/25/20 05:11 C-REACTIVE PROTEIN [CHEM] AM CBC WITH AUTO DIFF [HEME] AM CMP [COMPREHENSIVE METABOLIC PN,CMP] [CHEM] AM MAGNESIUM [CHEM] AM PHOSPHORUS [CHEM] AM 12/26/20 05:11 C-REACTIVE PROTEIN [CHEM] AM CBC WITH AUTO DIFF [HEME] AM CMP [COMPREHENSIVE METABOLIC PN,CMP] [CHEM] AM MAGNESIUM [CHEM] AM PHOSPHORUS [CHEM] AM 12/27/20 05:11 C-REACTIVE PROTEIN [CHEM] AM CBC WITH AUTO DIFF [HEME] AM CMP [COMPREHENSIVE METABOLIC PN,CMP] [CHEM] AM MAGNESIUM [CHEM] AM PHOSPHORUS [CHEM] AM - Plan Plan:: Assessment 89-year-old female with severe dementia presents with severe sepsis secondary to UTI. Severe sepsis Complicated UTI * On presentation to the emergency department patient was febrile, tachycardic, tachypneic, and hypoxemia * Initial lactic acid was 5.2 with a repeat of 2.8 3 hours later and after fluid bolus. Now 2.0 * Acute on chronic renal insufficiency, lactic acid, elevated BNP showing organ dysfunction * Anion gap improved to 15.6 * WBC 6.4 * UA: WBC greater than 100 * Started on Rocephin in the ER after getting blood cultures and urine culture * Given 30 mL/kg IV fluid bolus Plan * Admit to ICU * Rocephin 2 g every 24 hours * Await blood and urine cultures * Discussed with daughter high mortality rate with severe sepsis and 89-year-old with multiple medical problems. We will keep her informed of any complications occur during treatment. Acute on chronic renal insufficiencyimproved * Secondary to sepsis * Creatinine 1.3, GFR 39 * No recent renal function available, but in February 2017 estimated GFR was 47 Plan * Switch IV fluids to D5W secondary to hyponatremia * Follow kidney function closely * Renally dose medications and avoid nephrotoxic medications Hyperglycemia, history of prediabetes * Blood sugars are improved on sliding scale. * Hemoglobin A1c 8.5 * Expect blood sugars to increase again now on D5W Plan * Sliding scale insulin * Bedside glucose monitoring 4 times daily * Lantus 7 units daily. Will increase tomorrow. CHF * proBNP is 8711 * Chest x-ray shows no acute findings * proBNP likely artificially elevated secondary to renal dysfunction, but still significantly elevated * Fluid bolus secondary to sepsis going to exacerbate CHF * Patient is at high risk for pulmonary edema * Patient does have crackles and received Lasix overnight Plan * Currently on 4 L nasal cannula * Stovall catheter for strict I's and O's will for sepsis and CHF * Monitor respiratory status closely * Careful rehydration * Lasix as needed Hypernatremia * Sodium 150 Plan * Switch to D5W * Follow sodium daily Chronic: Hypertension, GERD, colitis, chronic renal insufficiency, anxiety, dementia, depression, vitamin D deficiencies, behavioral disturbances, anemia VTE prophylaxis with heparin CODE STATUS: DNR/DNI Prognosis is very poor. Discussed with daughter who is POA and she voices understanding.
[2020-12-23] MEDS ORDERED: Insulin Glarg,Human.Rec.Analog 100 Unit/ML SUBCUT SCH (15:15)
[2020-12-24] MEDS: Potassium Chloride 20 MEQ in Dextrose 5% in Water 1,000 ML IV SCH ×2 (00:27)
[2020-12-24] MEDS: Heparin Sodium 5,000 Units/ML Vial SUBCUT SCH ×2 (05:59→17:26)
[2020-12-24] MEDS: Insulin Lispro 100 UNIT/ML 10 ML Vial SUBCUT SCH ×4 (06:00→22:04)
--- NOTE | 2020-12-24 07:47 | PCM.PN ---
- General Info Date of Service: 12/24/20 Admission Dx/Problem (Free Text): Admission Diagnosis/Problem Admission Diagnosis/Problem Sepsis Subjective Update: Patient is noncommunicative, therefore subjective comes from nursing. Nurse reports that she had an episode of hypoxia last night of around 70%. It appears this was secondary to a mucous plug because a dark brown mucousy substance was suctioned. Patient has not had any oral intake prior to this. Functional Status: Reports: Other (Unable to obtain secondary to nonverbal due to dementia) - Patient Data Vitals - Most Recent: Last Vital Signs Temp 97.3 F 12/24/20 04:00 Pulse 72 12/23/20 18:00 Resp 14 12/24/20 04:00 BP 100/52 L 12/24/20 04:00 Pulse Ox 2 L 12/24/20 06:46 Weight - Most Recent: 129 lb 3.2 oz I&O - Last 24 Hours: Intake & Output 12/23/20 12/24/20 12/24/20 22:59 06:59 14:59 Intake Total 415 883 Output Total 405 645 Balance 10 238 Lab Results Last 24 Hours: Laboratory Results - last 24 hr 12/23/20 12/23/20 12/23/20 Range/Units 08:17 11:27 16:10 WBC (3.98-10.04) K/mm3 RBC (3.98-5.22) M/mm3 Hgb (11.2-15.7) gm/dl Hct (34.1-44.9) % MCV (79.4-94.8) fl MCH (25.6-32.2) pg MCHC (32.2-35.5) g/dl RDW Std Deviation (36.4-46.3) fL Plt Count (182-369) K/mm3 MPV (9.4-12.3) fl Neut % (Auto) (34.0-71.1) % Lymph % (Auto) (19.3-51.7) % [place] % (Auto) (4.7-12.5) % Eos % (Auto) (0.7-5.8) Baso % (Auto) (0.1-1.2) % Neut # (Auto) (1.56-6.13) K/mm3 Lymph # (Auto) (1.18-3.74) K/mm3 [place] # (Auto) (0.24-0.36) K/mm3 Eos # (Auto) (0.04-0.36) K/mm3 Baso # (Auto) (0.01-0.08) K/mm3 Sodium (136-145) mEq/L Potassium (3.5-5.1) mEq/L Chloride (98-107) mEq/L Carbon Dioxide (21-32) mEq/L Anion Gap (5-15) BUN (7-18) mg/dL Creatinine (0.55-1.02) mg/dL Est Cr Clr Drug Dosing mL/min Estimated GFR (MDRD) (>60) mL/min BUN/Creatinine Ratio (14-18) Glucose (83-115) mg/dL POC Glucose 145 H 242 H 275 H (83-110) mg/dL Calcium (8.5-10.1) mg/dL Phosphorus (2.6-4.7) mg/dL Magnesium (1.8-2.4) mg/dl Total Bilirubin (0.2-1.0) mg/dL AST (15-37) U/L ALT (14-59) U/L Alkaline Phosphatase (46-116) U/L C-Reactive Protein (<1.0) mg/dL Total Protein (6.4-8.2) g/dl Albumin (3.4-5.0) g/dl Globulin gm/dL Albumin/Globulin Ratio (1-2) MRSA (PCR) 12/23/20 12/23/20 12/23/20 Range/Units 18:02 20:30 21:20 WBC (3.98-10.04) K/mm3 RBC (3.98-5.22) M/mm3 Hgb (11.2-15.7) gm/dl Hct (34.1-44.9) % MCV (79.4-94.8) fl MCH (25.6-32.2) pg MCHC (32.2-35.5) g/dl RDW Std Deviation (36.4-46.3) fL Plt Count (182-369) K/mm3 MPV (9.4-12.3) fl Neut % (Auto) (34.0-71.1) % Lymph % (Auto) (19.3-51.7) % [place] % (Auto) (4.7-12.5) % Eos % (Auto) (0.7-5.8) Baso % (Auto) (0.1-1.2) % Neut # (Auto) (1.56-6.13) K/mm3 Lymph # (Auto) (1.18-3.74) K/mm3 [place] # (Auto) (0.24-0.36) K/mm3 Eos # (Auto) (0.04-0.36) K/mm3 Baso # (Auto) (0.01-0.08) K/mm3 Sodium (136-145) mEq/L Potassium (3.5-5.1) mEq/L Chloride (98-107) mEq/L Carbon Dioxide (21-32) mEq/L Anion Gap (5-15) BUN (7-18) mg/dL Creatinine (0.55-1.02) mg/dL Est Cr Clr Drug Dosing mL/min Estimated GFR (MDRD) (>60) mL/min BUN/Creatinine Ratio (14-18) Glucose (83-115) mg/dL POC Glucose 273 H 245 H (83-110) mg/dL Calcium (8.5-10.1) mg/dL Phosphorus (2.6-4.7) mg/dL Magnesium (1.8-2.4) mg/dl Total Bilirubin (0.2-1.0) mg/dL AST (15-37) U/L ALT (14-59) U/L Alkaline Phosphatase (46-116) U/L C-Reactive Protein (<1.0) mg/dL Total Protein (6.4-8.2) g/dl Albumin (3.4-5.0) g/dl Globulin gm/dL Albumin/Globulin Ratio (1-2) MRSA (PCR) Negative 12/24/20 12/24/20 12/24/20 Range/Units 05:05 05:35 05:50 WBC 10.83 H (3.98-10.04) K/mm3 RBC 3.98 (3.98-5.22) M/mm3 Hgb 11.8 (11.2-15.7) gm/dl Hct 37.4 (34.1-44.9) % MCV 94.0 (79.4-94.8) fl MCH 29.6 (25.6-32.2) pg MCHC 31.6 L (32.2-35.5) g/dl RDW Std Deviation 46.1 (36.4-46.3) fL Plt Count 221 (182-369) K/mm3 MPV 11.8 (9.4-12.3) fl Neut % (Auto) 73.6 H (34.0-71.1) % Lymph % (Auto) 17.5 L (19.3-51.7) % [place] % (Auto) 7.4 (4.7-12.5) % Eos % (Auto) 0.9 (0.7-5.8) Baso % (Auto) 0.2 (0.1-1.2) % Neut # (Auto) 7.97 H (1.56-6.13) K/mm3 Lymph # (Auto) 1.90 (1.18-3.74) K/mm3 [place] # (Auto) 0.80 H (0.24-0.36) K/mm3 Eos # (Auto) 0.10 (0.04-0.36) K/mm3 Baso # (Auto) 0.02 (0.01-0.08) K/mm3 Sodium 137 D (136-145) mEq/L Potassium 3.2 L (3.5-5.1) mEq/L Chloride 105 (98-107) mEq/L Carbon Dioxide 18 L (21-32) mEq/L Anion Gap 17.2 H (5-15) BUN 27 H (7-18) mg/dL Creatinine 1.4 H (0.55-1.02) mg/dL Est Cr Clr Drug Dosing 21.78 mL/min Estimated GFR (MDRD) 35 (>60) mL/min BUN/Creatinine Ratio 19.3 H (14-18) Glucose 236 H (83-115) mg/dL POC Glucose 245 H (83-110) mg/dL Calcium 7.8 L (8.5-10.1) mg/dL Phosphorus 2.1 L (2.6-4.7) mg/dL Magnesium 1.8 (1.8-2.4) mg/dl Total Bilirubin 0.5 (0.2-1.0) mg/dL AST 26 (15-37) U/L ALT 37 (14-59) U/L Alkaline Phosphatase 79 (46-116) U/L C-Reactive Protein 17.2 H* (<1.0) mg/dL Total Protein 6.8 (6.4-8.2) g/dl Albumin 2.6 L (3.4-5.0) g/dl Globulin 4.2 gm/dL Albumin/Globulin Ratio 0.6 L (1-2) MRSA (PCR) Jose Results Last 24 Hours: Microbiology 12/22/20 13:03 Aerobic Blood Culture - Preliminary Blood - Venous - Lab Draw NO GROWTH AFTER 1 DAY Anaerobic Blood Culture - Preliminary NO GROWTH AFTER 1 DAY 12/22/20 12:55 Aerobic Blood Culture - Preliminary Blood - Venous NO GROWTH AFTER 1 DAY Anaerobic Blood Culture - Preliminary NO GROWTH AFTER 1 DAY 12/22/20 13:10 Urine Culture - Preliminary Urine, Quick Cath (In-Out) Gram Negative Rods Med Orders - Current: Current Medications Acetaminophen (Acetaminophen 325 Mg Tab) 650 mg PO Q4H PRN PRN Reason: Pain (Mild 1-3)/fever Acetaminophen (Acetaminophen 650 Mg Supp) 650 mg RECTAL Q4H PRN PRN Reason: Pain (mild 1-3) Albuterol (Albuterol 0.083% 2.5 Mg/3 Ml Neb Soln) 2.5 mg NEB Q2H PRN PRN Reason: Shortness Of Breath/wheezing Albuterol/Ipratropium (Albuterol/Ipratropium 3.0-0.5 Mg/3 Ml Neb Soln) 3 ml NEB Q4H PRN PRN Reason: Shortness Of Breath/wheezing Last Admin: 12/24/20 01:46 Dose: 3 ml Documented by: Heparin Sodium (Porcine) (Heparin Sodium 5,000 Units/Ml Vial) 5,000 units SUBCUT Q12H ANKUR Last Admin: 12/24/20 05:59 Dose: 5,000 units Documented by: Ceftriaxone Sodium 2 gm/ (Sodium Chloride) 100 mls @ 200 mls/hr IV Q24H ANKUR Last Admin: 12/23/20 12:16 Dose: 200 mls/hr Documented by: Potassium Chloride 10 meq/ (Premix) 100 mls @ 100 mls/hr IV Q1H [facility] Stop: 12/24/20 11:44 Insulin Glargine (Insulin Glarg,Human.Rec.Analog 100 Unit/Ml) 7 unit SUBCUT DAILY [facility] Last Admin: 12/23/20 16:16 Dose: 7 units Documented by: Insulin Human Lispro (Insulin Lispro 100 Unit/Ml) 0 unit SUBCUT QIDACANDBED [facility]; Protocol Last Admin: 12/24/20 06:00 Dose: 2 unit Documented by: Pantoprazole Sodium (Pantoprazole 40 Mg Vial) 40 mg IVPUSH DAILY [facility] Last Admin: 12/23/20 08:45 Dose: 40 mg Documented by: Sodium Chloride (Sodium Chloride 0.9% 10 Ml Syringe) 10 ml FLUSH ASDIRECTED PRN PRN Reason: Keep Vein Open Last Admin: 12/22/20 13:11 Dose: 10 ml Documented by: Discontinued Medications Acetaminophen (Acetaminophen 650 Mg Supp) 650 mg RECTAL NOW ONE Stop: 12/22/20 14:30 Last Admin: 12/22/20 15:05 Dose: 650 mg Documented by: Furosemide (Furosemide 20 Mg/2 Ml Vial) 20 mg IVPUSH ONETIME ONE Stop: 12/23/20 00:04 Last Admin: 12/23/20 00:27 Dose: 20 mg Documented by: Furosemide (Furosemide 40 Mg/4 Ml Vial) 40 mg IVPUSH NOW ONE Stop: 12/23/20 08:31 Last Admin: 12/23/20 08:42 Dose: 40 mg Documented by: Furosemide (Furosemide 20 Mg/2 Ml Vial) 20 mg IVPUSH ONETIME ONE Stop: 12/23/20 22:58 Last Admin: 12/23/20 23:06 Dose: 20 mg Documented by: Ceftriaxone Sodium 2 gm/ (Sodium Chloride) 100 mls @ 200 mls/hr IV ONETIME ONE Stop: 12/22/20 13:34 Last Admin: 12/22/20 13:11 Dose: 200 mls/hr Documented by: Sodium Chloride (Normal Saline) 1,000 mls @ 125 mls/hr IV ASDIRECTED [facility] Last Infusion: 12/22/20 14:00 Dose: 999 mls/hr Documented by: Sodium Chloride (Normal Saline) 1,000 mls @ 1,000 mls/hr IV ONETIME ONE Stop: 12/22/20 14:55 Last Admin: 12/22/20 15:05 Dose: 1,000 mls/hr Documented by: Sodium Chloride (Normal Saline) 1,000 mls @ 125 mls/hr IV ASDIRECTED [facility] Last Admin: 12/22/20 20:31 Dose: 150 mls/hr Documented by: Potassium Chloride 10 meq/ (Premix) 100 mls @ 100 mls/hr IV Q1H [facility] Stop: 12/23/20 04:14 Last Admin: 12/23/20 03:35 Dose: 100 mls/hr Documented by: Sodium Chloride (Sodium Chloride 0.45%) 1,000 mls @ 125 mls/hr IV ASDIRECTED [facility] Last Infusion: 12/23/20 06:00 Dose: 75 mls/hr Documented by: Potassium Chloride 20 meq/ (Dextrose/Water) 1,010 mls @ 75.75 mls/hr IV Q13H [facility] Last Admin: 12/24/20 00:27 Dose: 75.75 mls/hr Documented by: Insulin Human Lispro (Insulin Lispro 100 Unit/Ml) 8 unit SUBCUT ONETIME ONE Stop: 12/22/20 17:16 Last Admin: 12/22/20 18:05 Dose: 8 units Documented by: Insulin Human Lispro (Insulin Lispro 100 Units/Ml 3 Ml Vial) 0 unit SUBCUT QIDACANDBED [facility]; Protocol Insulin Human Lispro (Insulin Lispro 100 Unit/Ml) 0 unit SUBCUT QIDACANDBED [facility]; Protocol Last Admin: 12/22/20 23:10 Dose: 5 units Documented by: Insulin Human Lispro (Insulin Lispro 100 Unit/Ml) 10 unit SUBCUT ONETIME ONE Stop: 12/22/20 20:21 Last Admin: 12/22/20 20:28 Dose: 10 units Documented by: Insulin Human Lispro (Insulin Lispro 100 Unit/Ml) 2 unit SUBCUT ONETIME ONE; Protocol Stop: 12/23/20 02:11 Last Admin: 12/23/20 02:29 Dose: 2 units Documented by: Pantoprazole Sodium (Pantoprazole 40 Mg Tab.Cr) 40 mg PO DAILY@0700 [facility] Last Admin: 12/23/20 06:13 Dose: Not Given Documented by: - Exam Quality Assessment: No: Supplemental Oxygen General: Alert HEENT: Pupils Equal, Mucous Membr. Moist/[place] Neck: Supple Lungs: Clear to Auscultation, Normal Respiratory Effort Cardiovascular: Regular Rate, Regular Rhythm GI/Abdominal Exam: Normal Bowel Sounds, Soft, Non-Tender, No Distention Extremities: Normal Inspection, Non-Tender, No Pedal Edema, Normal Capillary Refill Skin: Warm, Dry, Intact - Patient Data Lab Results Last 24 hrs: Laboratory Results - last 24 hr 12/23/20 12/23/20 12/23/20 Range/Units 08:17 11:27 16:10 WBC (3.98-10.04) K/mm3 RBC (3.98-5.22) M/mm3 Hgb (11.2-15.7) gm/dl Hct (34.1-44.9) % MCV (79.4-94.8) fl MCH (25.6-32.2) pg MCHC (32.2-35.5) g/dl RDW Std Deviation (36.4-46.3) fL Plt Count (182-369) K/mm3 MPV (9.4-12.3) fl Neut % (Auto) (34.0-71.1) % Lymph % (Auto) (19.3-51.7) % [place] % (Auto) (4.7-12.5) % Eos % (Auto) (0.7-5.8) Baso % (Auto) (0.1-1.2) % Neut # (Auto) (1.56-6.13) K/mm3 Lymph # (Auto) (1.18-3.74) K/mm3 [place] # (Auto) (0.24-0.36) K/mm3 Eos # (Auto) (0.04-0.36) K/mm3 Baso # (Auto) (0.01-0.08) K/mm3 Sodium (136-145) mEq/L Potassium (3.5-5.1) mEq/L Chloride (98-107) mEq/L Carbon Dioxide (21-32) mEq/L Anion Gap (5-15) BUN (7-18) mg/dL Creatinine (0.55-1.02) mg/dL Est Cr Clr Drug Dosing mL/min Estimated GFR (MDRD) (>60) mL/min BUN/Creatinine Ratio (14-18) Glucose (83-115) mg/dL POC Glucose 145 H 242 H 275 H (83-110) mg/dL Calcium (8.5-10.1) mg/dL Phosphorus (2.6-4.7) mg/dL Magnesium (1.8-2.4) mg/dl Total Bilirubin (0.2-1.0) mg/dL AST (15-37) U/L ALT (14-59) U/L Alkaline Phosphatase (46-116) U/L C-Reactive Protein (<1.0) mg/dL Total Protein (6.4-8.2) g/dl Albumin (3.4-5.0) g/dl Globulin gm/dL Albumin/Globulin Ratio (1-2) MRSA (PCR) 12/23/20 12/23/20 12/23/20 Range/Units 18:02 20:30 21:20 WBC (3.98-10.04) K/mm3 RBC (3.98-5.22) M/mm3 Hgb (11.2-15.7) gm/dl Hct (34.1-44.9) % MCV (79.4-94.8) fl MCH (25.6-32.2) pg MCHC (32.2-35.5) g/dl RDW Std Deviation (36.4-46.3) fL Plt Count (182-369) K/mm3 MPV (9.4-12.3) fl Neut % (Auto) (34.0-71.1) % Lymph % (Auto) (19.3-51.7) % [place] % (Auto) (4.7-12.5) % Eos % (Auto) (0.7-5.8) Baso % (Auto) (0.1-1.2) % Neut # (Auto) (1.56-6.13) K/mm3 Lymph # (Auto) (1.18-3.74) K/mm3 [place] # (Auto) (0.24-0.36) K/mm3 Eos # (Auto) (0.04-0.36) K/mm3 Baso # (Auto) (0.01-0.08) K/mm3 Sodium (136-145) mEq/L Potassium (3.5-5.1) mEq/L Chloride (98-107) mEq/L Carbon Dioxide (21-32) mEq/L Anion Gap (5-15) BUN (7-18) mg/dL Creatinine (0.55-1.02) mg/dL Est Cr Clr Drug Dosing mL/min Estimated GFR (MDRD) (>60) mL/min BUN/Creatinine Ratio (14-18) Glucose (83-115) mg/dL POC Glucose 273 H 245 H (83-110) mg/dL Calcium (8.5-10.1) mg/dL Phosphorus (2.6-4.7) mg/dL Magnesium (1.8-2.4) mg/dl Total Bilirubin (0.2-1.0) mg/dL AST (15-37) U/L ALT (14-59) U/L Alkaline Phosphatase (46-116) U/L C-Reactive Protein (<1.0) mg/dL Total Protein (6.4-8.2) g/dl Albumin (3.4-5.0) g/dl Globulin gm/dL Albumin/Globulin Ratio (1-2) MRSA (PCR) Negative 12/24/20 12/24/20 12/24/20 Range/Units 05:05 05:35 05:50 WBC 10.83 H (3.98-10.04) K/mm3 RBC 3.98 (3.98-5.22) M/mm3 Hgb 11.8 (11.2-15.7) gm/dl Hct 37.4 (34.1-44.9) % MCV 94.0 (79.4-94.8) fl MCH 29.6 (25.6-32.2) pg MCHC 31.6 L (32.2-35.5) g/dl RDW Std Deviation 46.1 (36.4-46.3) fL Plt Count 221 (182-369) K/mm3 MPV 11.8 (9.4-12.3) fl Neut % (Auto) 73.6 H (34.0-71.1) % Lymph % (Auto) 17.5 L (19.3-51.7) % [place] % (Auto) 7.4 (4.7-12.5) % Eos % (Auto) 0.9 (0.7-5.8) Baso % (Auto) 0.2 (0.1-1.2) % Neut # (Auto) 7.97 H (1.56-6.13) K/mm3 Lymph # (Auto) 1.90 (1.18-3.74) K/mm3 [place] # (Auto) 0.80 H (0.24-0.36) K/mm3 Eos # (Auto) 0.10 (0.04-0.36) K/mm3 Baso # (Auto) 0.02 (0.01-0.08) K/mm3 Sodium 137 D (136-145) mEq/L Potassium 3.2 L (3.5-5.1) mEq/L Chloride 105 (98-107) mEq/L Carbon Dioxide 18 L (21-32) mEq/L Anion Gap 17.2 H (5-15) BUN 27 H (7-18) mg/dL Creatinine 1.4 H (0.55-1.02) mg/dL Est Cr Clr Drug Dosing 21.78 mL/min Estimated GFR (MDRD) 35 (>60) mL/min BUN/Creatinine Ratio 19.3 H (14-18) Glucose 236 H (83-115) mg/dL POC Glucose 245 H (83-110) mg/dL Calcium 7.8 L (8.5-10.1) mg/dL Phosphorus 2.1 L (2.6-4.7) mg/dL Magnesium 1.8 (1.8-2.4) mg/dl Total Bilirubin 0.5 (0.2-1.0) mg/dL AST 26 (15-37) U/L ALT 37 (14-59) U/L Alkaline Phosphatase 79 (46-116) U/L C-Reactive Protein 17.2 H* (<1.0) mg/dL Total Protein 6.8 (6.4-8.2) g/dl Albumin 2.6 L (3.4-5.0) g/dl Globulin 4.2 gm/dL Albumin/Globulin Ratio 0.6 L (1-2) MRSA (PCR) Result Diagrams: 12/24/20 05:05 12/24/20 05:50 Jose Results Last 24 hrs: Microbiology 12/22/20 13:03 Aerobic Blood Culture - Preliminary Blood - Venous - Lab Draw NO GROWTH AFTER 1 DAY Anaerobic Blood Culture - Preliminary NO GROWTH AFTER 1 DAY 12/22/20 12:55 Aerobic Blood Culture - Preliminary Blood - Venous NO GROWTH AFTER 1 DAY Anaerobic Blood Culture - Preliminary NO GROWTH AFTER 1 DAY 12/22/20 13:10 Urine Culture - Preliminary Urine, Quick Cath (In-Out) Gram Negative Rods Sepsis Event Note - Evaluation Sepsis Screening Result: No Definite Risk - Focused Exam Vital Signs: Vital Signs Temp Resp BP BP Pulse Ox Pulse Ox Pulse Ox 12/24/20 06:46 2 L 12/24/20 04:00 97.3 F 14 100/52 L 95 12/24/20 03:08 95 12/24/20 03:01 97 12/24/20 02:34 95 12/24/20 01:47 90 L 12/24/20 00:00 97.6 F 17 133/62 92 L 12/23/20 22:55 14 131/70 88 L 12/23/20 20:00 98.7 F 15 133/76 90 L - Problem List & Annotations (1) Severe sepsis SNOMED Code(s): 69186688 Code(s): A41.9 - SEPSIS, UNSPECIFIED ORGANISM; R65.20 - SEVERE SEPSIS WITHOUT SEPTIC SHOCK Status: Acute Current Visit: Yes (2) Acute on chronic renal failure SNOMED Code(s): 969172823 Code(s): N17.9 - ACUTE KIDNEY FAILURE, UNSPECIFIED; N18.9 - CHRONIC KIDNEY DISEASE, UNSPECIFIED Status: Acute Current Visit: Yes (3) Hyperglycemia SNOMED Code(s): 13131076 Code(s): R73.9 - HYPERGLYCEMIA, UNSPECIFIED Status: Acute Current Visit: Yes (4) Advanced dementia SNOMED Code(s): 98601085 Code(s): F03.90 - UNSPECIFIED DEMENTIA WITHOUT BEHAVIORAL DISTURBANCE Status: Acute Current Visit: Yes (5) Renal insufficiency SNOMED Code(s): 366051419, 233780449 Code(s): N28.9 - DISORDER OF KIDNEY AND URETER, UNSPECIFIED Status: Acute Current Visit: Yes - Problem List Review Problem List Initiated/Reviewed/Updated: Yes - My Orders Last 24 Hours: My Active Orders 12/23/20 09:00 Pantoprazole [ProTONIX IV] 40 mg IVPUSH DAILY 12/23/20 10:39 CMO Evaluation and Treatment [CONS] Routine 12/23/20 Lunch Pureed Diet [DIET] 12/23/20 13:00 cefTRIAXone [Rocephin] 2 gm Sodium Chloride 0.9% [Normal Saline] 100 ml IV Q24H 12/23/20 15:15 Insulin Glarg,Human.Rec.Analog [LantUS] 7 unit SUBCUT DAILY 12/24/20 07:45 Potassium Chloride [KCl in Water 10 MEQ/100 ML] 10 meq Premix Bag 1 bag IV Q1H 12/25/20 05:11 C-REACTIVE PROTEIN [CHEM] AM CBC WITH AUTO DIFF [HEME] AM CMP [COMPREHENSIVE METABOLIC PN,CMP] [CHEM] AM MAGNESIUM [CHEM] AM PHOSPHORUS [CHEM] AM 12/26/20 05:11 C-REACTIVE PROTEIN [CHEM] AM CBC WITH AUTO DIFF [HEME] AM CMP [COMPREHENSIVE METABOLIC PN,CMP] [CHEM] AM MAGNESIUM [CHEM] AM PHOSPHORUS [CHEM] AM 12/27/20 05:11 C-REACTIVE PROTEIN [CHEM] AM CBC WITH AUTO DIFF [HEME] AM CMP [COMPREHENSIVE METABOLIC PN,CMP] [CHEM] AM MAGNESIUM [CHEM] AM PHOSPHORUS [CHEM] AM - Plan Plan:: Assessment 89-year-old female with severe dementia presents with severe sepsis secondary to UTI. Severe sepsis Complicated UTI * On presentation to the emergency department patient was febrile, tachycardic, tachypneic, and hypoxemia * Lactic acidosis resolved * Anion gap improved to 15.6-->17.2 * WBC 6.4-->10.8 * CRP [id number] * UA: WBC greater than 100 * Urine culture result: * Given 30 mL/kg IV fluid bolus Plan * Change to MSP status * Rocephin 2 g every 24 hours * change fluids to NS from D5 * Discussed with daughter high mortality rate with severe sepsis and 89-year-old with multiple medical problems. We will keep her informed of any complications occur during treatment. * If white count continues to increase or she becomes febrile mean need to CT her abdomen and pelvis for possible abscess. Episode of hypoxemia, possible aspiration * Get chest x-ray * This could be because of the change in white count and CRP. Chronic renal insufficiencystable * Secondary to sepsis * Creatinine 1.4 * No recent renal function available, but in February 2017 estimated GFR was 47 * Poor urinary output overnight and received Lasix 20 mg x 1 IV Plan * Switch IV fluids to D5W secondary to hyponatremia * Follow kidney function closely * Renally dose medications and avoid nephrotoxic medications Hyperglycemia, history of prediabetes * Blood sugars are improved on sliding scale. * Hemoglobin A1c 8.5 * Switch to normal saline Plan * Sliding scale insulin * Bedside glucose monitoring 4 times daily * Lantus 10 units daily. CHF * proBNP on admission was 8711 * Chest x-ray shows no acute findings * proBNP likely artificially elevated secondary to renal dysfunction, but still significantly elevated * Fluid bolus secondary to sepsis going to exacerbate CHF * Patient is at high risk for pulmonary edema Plan * Currently on 4 L nasal cannula * Stovall catheter for strict I's and O's will for sepsis and CHF * Monitor respiratory status closely * Careful rehydration * Lasix as needed Hypernatremia-resolved * Sodium 137 Plan * NS secondary to diabetes * Follow sodium daily Chronic: Hypertension, GERD, colitis, chronic renal insufficiency, anxiety, dementia, depression, vitamin D deficiencies, behavioral disturbances, anemia VTE prophylaxis with heparin CODE STATUS: DNR/DNI Prognosis is very poor. Discussed with daughter who is POA and she voices understanding.
[2020-12-24] MEDS: Insulin Glarg,Human.Rec.Analog 100 Unit/ML SUBCUT SCH (08:09)
[2020-12-24] MEDS: Potassium Chloride 10 MEQ in Premix Bag 1 BAG IV SCH ×4 (08:11→11:30)
[2020-12-24] MEDS: Pantoprazole 40 MG Vial IVPUSH SCH (08:18)
[2020-12-24] MEDS: Sodium Chloride 0.9% 1,000 ML IV SCH ×2 (08:42→18:00)
--- NOTE | 2020-12-24 11:00 | CR ---
Chest: Portable view of the chest was obtained utilizing upright position. Comparison: Prior chest x-ray of 12/22/20. Heart size and mediastinum are within normal limits for portable technique. Elevated right hemidiaphragm is seen which appears chronic. Slight atelectasis is noted within the right lung base. Lungs otherwise are clear. Bony structures are osteopenic. Impression: 1. Slight atelectasis within the right lung base. 2. Other findings as noted above. Nothing acute is seen. Diagnostic code #2
[2020-12-24] MEDS: cefTRIAXone 2 GM in Sodium Chloride 0.9% 100 ML IV SCH (12:23)
[2020-12-25] MEDS: Sodium Chloride 0.9% 1,000 ML IV SCH (04:00)
[2020-12-25] MEDS: Heparin Sodium 5,000 Units/ML Vial SUBCUT SCH (06:30)
[2020-12-25] MEDS: Insulin Lispro 100 UNIT/ML 10 ML Vial SUBCUT SCH ×2 (06:31→12:26)
[2020-12-25] MEDS: Pantoprazole 40 MG Vial IVPUSH SCH (08:25)
[2020-12-25] MEDS: Insulin Glarg,Human.Rec.Analog 100 Unit/ML SUBCUT SCH (08:26)
[2020-12-25] MEDS ORDERED: Magnesium Sulfate/Water 2 GM/50 ML BAG IV ONE (09:00)
[2020-12-25] MEDS: cefTRIAXone 2 GM in Sodium Chloride 0.9% 100 ML IV SCH (12:26)
--- NOTE | 2020-12-25 12:47 | PCM.DCSUM1 ---
Discharge Summary - Hospital Course HPI Initial Comments: 89-year-old female with severe dementia presents via EMS from her residence at [facility] with a fever, decreased oral intake, and congestion starting this morning. Per her daughter and the emergency department notes this morning she had decreasing appetite and oral intake, increased heart rate and fever. Patient was sent to the emergency department where she was found to have a fever of 102, heart rate of 110, respiratory rate of 36, and oxygen saturations of 91% on 4 L. Patient is nonverbal and unable to communicate secondary to severe dementia at baseline. In the emergency department patient was found to have a severe UTI with WBCs greater than 100 on UA. Chest x-ray was clear. Other labs of significance were normal WBC of 8.35 with no left shift. Anion gap was significantly elevated at 21 and kidney function was significantly reduced with an estimated GFR of 21, creatinine 2.2, BUN 43. She was acidotic with a bicarb of 20. Lactic acid was 5.2. Of note her glucose was 489. Her daughter states that they just recently diagnosed her with prediabetes and apparently she was started on Glucophage. Patient was given a fluid bolus of 30 mL/kg and started on Rocephin 2 g. Repeat lactic acid 3 hours later was 2.8. Assessment 89-year-old female with severe dementia presents with severe sepsis secondary to UTI. Severe sepsis Complicated UTI * On presentation to the emergency department patient was febrile, tachycardic, tachypneic, and hypoxemia * Initial lactic acid was 5.2 with a repeat of 2.8 3 hours later and after fluid bolus. * Acute on chronic renal insufficiency, lactic acid, elevated BNP showing organ dysfunction * Anion gap elevated at 21 and serum bicarb of 20 * Normal white count of 8.35, C-reactive protein 19.2 * UA: WBC greater than 100 * Started on Rocephin in the ER after getting blood cultures and urine culture * Given 30 mL/kg IV fluid bolus Plan * Admit to ICU * Follow lactic acid * Normal saline at 125 mL/h * Rocephin 2 g every 24 hours * Await blood and urine cultures * Discussed with daughter high mortality rate with severe sepsis and 89-year-old with multiple medical problems. We will keep her informed of any complicatio ns occur during treatment. Acute on chronic renal insufficiency * Secondary to sepsis * Creatinine 2.2 and estimated GFR of 21 * No recent renal function available, but in February 2017 estimated GFR was 47 Plan * Continue IV fluids * Follow kidney function closely * Renally dose medications and avoid nephrotoxic medications Hyperglycemia, history of prediabetes * Blood sugar 489 on presentation * Unknown hemoglobin A1c * Fluid bolus done in ER Plan * Sliding scale insulin * Bedside glucose monitoring 4 times daily * Get hemoglobin A1c CHF * proBNP is 8711 * Chest x-ray shows no acute findings * proBNP likely artificially elevated secondary to renal dysfunction, but still significantly elevated * Fluid bolus secondary to sepsis going to exacerbate CHF * Patient is at high risk for pulmonary edema Plan * Currently on 4 L nasal cannula * Stovall catheter for strict I's and O's will for sepsis and CHF * Monitor respiratory status closely Chronic: Hypertension, GERD, colitis, chronic renal insufficiency, anxiety, dementia, depression, vitamin D deficiencies, behavioral disturbances, anemia VTE prophylaxis with heparin CODE STATUS: DNR/DNI Prognosis is very poor. Discussed with daughter who is POA and she voices understanding. - Mortality Measure Prognosis:: Poor (High risk for mortality) Diagnosis: Stroke: No - Discharge Data Discharge Date: 12/25/20 Discharge Disposition: Home, Self-Care 01 Condition: Good - Referral to Home Health Primary Care Physician: PCP None - Discharge Diagnosis/Problem(s) (1) Severe sepsis SNOMED Code(s): 04829742 ICD Code: A41.9 - SEPSIS, UNSPECIFIED ORGANISM; R65.20 - SEVERE SEPSIS WITHOUT SEPTIC SHOCK Status: Acute Current Visit: Yes (2) Acute on chronic renal failure SNOMED Code(s): 811788815 ICD Code: N17.9 - ACUTE KIDNEY FAILURE, UNSPECIFIED; N18.9 - CHRONIC KIDNEY DISEASE, UNSPECIFIED Status: Acute Current Visit: Yes (3) Hyperglycemia SNOMED Code(s): 88291796 ICD Code: R73.9 - HYPERGLYCEMIA, UNSPECIFIED Status: Acute Current Visit: Yes (4) Advanced dementia SNOMED Code(s): 41203465 ICD Code: F03.90 - UNSPECIFIED DEMENTIA WITHOUT BEHAVIORAL DISTURBANCE Status: Acute Current Visit: Yes (5) Renal insufficiency SNOMED Code(s): 037299816, 378136639 ICD Code: N28.9 - DISORDER OF KIDNEY AND URETER, UNSPECIFIED Status: Acute Current Visit: Yes - Patient Summary/Data Consults: Consultations 12/23/20 10:39 OCEANOGRAPHIC METEOROLOGIST Evaluation and Treatment [CONS] Routine Hospital Course: Patient was admitted and given fluid bolus and continued on IV fluids to help decrease her lactic acid. Lactic acid did decrease to 2.0. Urine culture grew out E. coli that was sensitive to Rocephin. Patient did have some issues with poor urine output, but with continued fluids this resolved. At time of discharge her creatinine improved from 2.2 to1.2. Patient be discharged on Keflex 500 mg 3 times daily for 5 additional days. Patient did have one episode of hypoxia secondary to a mucous plug on the second night. After suctioning this resolved and no recurrence occurred. Chest x-ray showed some slight atelectasis within the right lung base otherwise no acute findings. - Patient Instructions Diet: Diabetic Diet Driving: Do Not Drive Other/Special Instructions: Follow-up with primary care provider next week. - Discharge Plan *PRESCRIPTION DRUG MONITORING PROGRAM REVIEWED*: No *COPY OF PRESCRIPTION DRUG MONITORING REPORT IN PATIENT RYNE: No Prescriptions/Med Rec: cephALEXin [Keflex] 500 mg PO Q8H #15 cap Home Medications: Home Meds Acetaminophen 500 mg PO TID PRN 12/22/20 [History] Citalopram Hydrobromide [Citalopram HBr] 10 mg PO BEDTIME 12/22/20 [History] Cyanocobalamin (Vitamin B-12) [B-12] 1,000 mcg PO BEDTIME 12/22/20 [History] Docusate Sodium/Sennosides [Senna Plus] 1 tab PO BID 12/22/20 [History] Ferrous Sulfate 325 mg PO BEDTIME 12/22/20 [History] Gabapentin 600 mg PO BEDTIME 12/22/20 [History] Lactobacillus Acidophilus/Fos [Acidophilus Probiotic Tablet] 1 tab PO BID 12/22/20 [History] Magnesium Hydroxide [Milk of Magnesia] 30 ml PO TID PRN 12/22/20 [History] Memantine [Namenda Xr] 14 mg PO DAILY 12/22/20 [History] Omeprazole 20 mg PO ACBREAKFAST 12/22/20 [History] Ondansetron [Zofran ODT] 4 mg PO Q4H PRN 12/22/20 [History] bisacodyL [Dulcolax] 10 mg PO DAILY PRN 12/22/20 [History] bisacodyL [Dulcolax] 10 mg RECTAL DAILY PRN 12/22/20 [History] metFORMIN [Glucophage] 250 mg PO BID 12/22/20 [History] polyethylene glycoL 3350 [MiraLAX] 17 gm PO DAILY 12/22/20 [History] cephALEXin [Keflex] 500 mg PO Q8H #15 cap 12/25/20 [Rx] Patient Handouts: Sepsis, Diagnosis, Adult, Urinary Tract Infection, Adult, Sepsis, Self Care, Adult Forms: ED Department Discharge Referrals: Mauricio Lauren MD [Ordering Only Provider] - 01/04/21 11:15 am (Hospital follow-up appointment.) - Discharge Summary/Plan Comment DC Time >30 min.: Yes - General Info Date of Service: 12/25/20 Admission Dx/Problem (Free Text: Admission Diagnosis/Problem Admission Diagnosis/Problem Sepsis Subjective Update: Patient is noncommunicative, but nursing reports no change overnight. - Patient Data Vitals - Most Recent: Last Vital Signs Temp 97.9 F 12/25/20 08:00 Pulse 66 12/25/20 08:00 Resp 19 12/25/20 08:00 BP 117/53 L 12/25/20 08:00 Pulse Ox 94 L 12/25/20 08:00 Weight - Most Recent: 131 lb I&O - Last 24 hours: Intake & Output 12/24/20 12/25/20 12/25/20 22:59 06:59 14:59 Intake Total 1727 1281 Output Total 205 260 175 Balance 1522 1021 -175 Lab Results - Last 24 hrs: Laboratory Results - last 24 hr 12/24/20 12/24/20 12/24/20 Range/Units 10:50 17:25 21:52 WBC (3.98-10.04) K/mm3 RBC (3.98-5.22) M/mm3 Hgb (11.2-15.7) gm/dl Hct (34.1-44.9) % MCV (79.4-94.8) fl MCH (25.6-32.2) pg MCHC (32.2-35.5) g/dl RDW Std Deviation (36.4-46.3) fL Plt Count (182-369) K/mm3 MPV (9.4-12.3) fl Neut % (Auto) (34.0-71.1) % Lymph % (Auto) (19.3-51.7) % [place] % (Auto) (4.7-12.5) % Eos % (Auto) (0.7-5.8) Baso % (Auto) (0.1-1.2) % Neut # (Auto) (1.56-6.13) K/mm3 Lymph # (Auto) (1.18-3.74) K/mm3 [place] # (Auto) (0.24-0.36) K/mm3 Eos # (Auto) (0.04-0.36) K/mm3 Baso # (Auto) (0.01-0.08) K/mm3 Sodium (136-145) mEq/L Potassium (3.5-5.1) mEq/L Chloride (98-107) mEq/L Carbon Dioxide (21-32) mEq/L Anion Gap (5-15) BUN (7-18) mg/dL Creatinine (0.55-1.02) mg/dL Est Cr Clr Drug Dosing mL/min Estimated GFR (MDRD) (>60) mL/min BUN/Creatinine Ratio (14-18) Glucose (83-115) mg/dL POC Glucose 180 H 221 H (83-110) mg/dL Calcium (8.5-10.1) mg/dL Phosphorus (2.6-4.7) mg/dL Magnesium (1.8-2.4) mg/dl Total Bilirubin (0.2-1.0) mg/dL AST (15-37) U/L ALT (14-59) U/L Alkaline Phosphatase (46-116) U/L C-Reactive Protein (<1.0) mg/dL Total Protein (6.4-8.2) g/dl Albumin (3.4-5.0) g/dl Globulin gm/dL Albumin/Globulin Ratio (1-2) Procalcitonin 0.92 H ng/mL SARS-CoV-2 RNA (TRESSA) (NEGATIVE) 12/25/20 12/25/20 12/25/20 Range/Units 05:29 05:29 06:28 WBC 8.26 (3.98-10.04) K/mm3 RBC 3.14 L (3.98-5.22) M/mm3 Hgb 9.3 L D (11.2-15.7) gm/dl Hct 29.9 L (34.1-44.9) % MCV 95.2 H (79.4-94.8) fl MCH 29.6 (25.6-32.2) pg MCHC 31.1 L (32.2-35.5) g/dl RDW Std Deviation 46.4 H (36.4-46.3) fL Plt Count 189 (182-369) K/mm3 MPV 11.6 (9.4-12.3) fl Neut % (Auto) 63.9 (34.0-71.1) % Lymph % (Auto) 23.5 (19.3-51.7) % [place] % (Auto) 7.5 (4.7-12.5) % Eos % (Auto) 4.2 (0.7-5.8) Baso % (Auto) 0.1 (0.1-1.2) % Neut # (Auto) 5.27 (1.56-6.13) K/mm3 Lymph # (Auto) 1.94 (1.18-3.74) K/mm3 [place] # (Auto) 0.62 H (0.24-0.36) K/mm3 Eos # (Auto) 0.35 (0.04-0.36) K/mm3 Baso # (Auto) 0.01 (0.01-0.08) K/mm3 Sodium 142 (136-145) mEq/L Potassium 3.6 (3.5-5.1) mEq/L Chloride 109 H (98-107) mEq/L Carbon Dioxide 21 (21-32) mEq/L Anion Gap 15.6 H (5-15) BUN 22 H (7-18) mg/dL Creatinine 1.2 H (0.55-1.02) mg/dL Est Cr Clr Drug Dosing 25.63 mL/min Estimated GFR (MDRD) 42 (>60) mL/min BUN/Creatinine Ratio 18.3 H (14-18) Glucose 121 H (83-115) mg/dL POC Glucose 117 H (83-110) mg/dL Calcium 7.5 L (8.5-10.1) mg/dL Phosphorus 2.2 L (2.6-4.7) mg/dL Magnesium 1.7 L (1.8-2.4) mg/dl Total Bilirubin 0.5 (0.2-1.0) mg/dL AST 51 H (15-37) U/L ALT 53 (14-59) U/L Alkaline Phosphatase 93 (46-116) U/L C-Reactive Protein 17.7 H* (<1.0) mg/dL Total Protein 5.7 L (6.4-8.2) g/dl Albumin 2.1 L (3.4-5.0) g/dl Globulin 3.6 gm/dL Albumin/Globulin Ratio 0.6 L (1-2) Procalcitonin ng/mL SARS-CoV-2 RNA (TRESSA) (NEGATIVE) 12/25/20 12/25/20 Range/Units 10:54 12:21 WBC (3.98-10.04) K/mm3 RBC (3.98-5.22) M/mm3 Hgb (11.2-15.7) gm/dl Hct (34.1-44.9) % MCV (79.4-94.8) fl MCH (25.6-32.2) pg MCHC (32.2-35.5) g/dl RDW Std Deviation (36.4-46.3) fL Plt Count (182-369) K/mm3 MPV (9.4-12.3) fl Neut % (Auto) (34.0-71.1) % Lymph % (Auto) (19.3-51.7) % [place] % (Auto) (4.7-12.5) % Eos % (Auto) (0.7-5.8) Baso % (Auto) (0.1-1.2) % Neut # (Auto) (1.56-6.13) K/mm3 Lymph # (Auto) (1.18-3.74) K/mm3 [place] # (Auto) (0.24-0.36) K/mm3 Eos # (Auto) (0.04-0.36) K/mm3 Baso # (Auto) (0.01-0.08) K/mm3 Sodium (136-145) mEq/L Potassium (3.5-5.1) mEq/L Chloride (98-107) mEq/L Carbon Dioxide (21-32) mEq/L Anion Gap (5-15) BUN (7-18) mg/dL Creatinine (0.55-1.02) mg/dL Est Cr Clr Drug Dosing mL/min Estimated GFR (MDRD) (>60) mL/min BUN/Creatinine Ratio (14-18) Glucose (83-115) mg/dL POC Glucose 232 H (83-110) mg/dL Calcium (8.5-10.1) mg/dL Phosphorus (2.6-4.7) mg/dL Magnesium (1.8-2.4) mg/dl Total Bilirubin (0.2-1.0) mg/dL AST (15-37) U/L ALT (14-59) U/L Alkaline Phosphatase (46-116) U/L C-Reactive Protein (<1.0) mg/dL Total Protein (6.4-8.2) g/dl Albumin (3.4-5.0) g/dl Globulin gm/dL Albumin/Globulin Ratio (1-2) Procalcitonin ng/mL SARS-CoV-2 RNA (TRESSA) Negative (NEGATIVE) YASEMIN Results - Last 24 hrs: Microbiology 12/22/20 13:10 Urine Culture - Preliminary Urine, Quick Cath (In-Out) Escherichia Coli 12/22/20 13:03 Aerobic Blood Culture - Preliminary Blood - Venous - Lab Draw NO GROWTH AFTER 2 DAYS Anaerobic Blood Culture - Preliminary NO GROWTH AFTER 2 DAYS 12/22/20 12:55 Aerobic Blood Culture - Preliminary Blood - Venous NO GROWTH AFTER 2 DAYS Anaerobic Blood Culture - Preliminary NO GROWTH AFTER 2 DAYS Med Orders - Current: Current Medications Acetaminophen (Acetaminophen 325 Mg Tab) 650 mg PO Q4H PRN PRN Reason: Pain (Mild 1-3)/fever Acetaminophen (Acetaminophen 650 Mg Supp) 650 mg RECTAL Q4H PRN PRN Reason: Pain (mild 1-3) Albuterol (Albuterol 0.083% 2.5 Mg/3 Ml Neb Soln) 2.5 mg NEB Q2H PRN PRN Reason: Shortness Of Breath/wheezing Albuterol/Ipratropium (Albuterol/Ipratropium 3.0-0.5 Mg/3 Ml Neb Soln) 3 ml NEB Q4H PRN PRN Reason: Shortness Of Breath/wheezing Last Admin: 12/24/20 01:46 Dose: 3 ml Documented by: Heparin Sodium (Porcine) (Heparin Sodium 5,000 Units/Ml Vial) 5,000 units SUBCUT Q12H [facility] Last Admin: 12/25/20 06:30 Dose: 5,000 units Documented by: Ceftriaxone Sodium 2 gm/ (Sodium Chloride) 100 mls @ 200 mls/hr IV Q24H [facility] Last Admin: 12/25/20 12:26 Dose: 200 mls/hr Documented by: Insulin Glargine (Insulin Glarg,Human.Rec.Analog 100 Unit/Ml) 10 unit SUBCUT DAILY [facility] Last Admin: 12/25/20 08:26 Dose: 10 units Documented by: Insulin Human Lispro (Insulin Lispro 100 Unit/Ml) 0 unit SUBCUT QIDACANDBED [facility] ; Protocol Last Admin: 12/25/20 12:26 Dose: 2 unit Documented by: Pantoprazole Sodium (Pantoprazole 40 Mg Vial) 40 mg IVPUSH DAILY [facility] Last Admin: 12/25/20 08:25 Dose: 40 mg Documented by: Sodium Chloride (Sodium Chloride 0.9% 10 Ml Syringe) 10 ml FLUSH ASDIRECTED PRN PRN Reason: Keep Vein Open Last Admin: 12/22/20 13:11 Dose: 10 ml Documented by: Discontinued Medications Acetaminophen (Acetaminophen 650 Mg Supp) 650 mg RECTAL NOW ONE Stop: 12/22/20 14:30 Last Admin: 12/22/20 15:05 Dose: 650 mg Documented by: Furosemide (Furosemide 20 Mg/2 Ml Vial) 20 mg IVPUSH ONETIME ONE Stop: 12/23/20 00:04 Last Admin: 12/23/20 00:27 Dose: 20 mg Documented by: Furosemide (Furosemide 40 Mg/4 Ml Vial) 40 mg IVPUSH NOW ONE Stop: 12/23/20 08:31 Last Admin: 12/23/20 08:42 Dose: 40 mg Documented by: Furosemide (Furosemide 20 Mg/2 Ml Vial) 20 mg IVPUSH ONETIME ONE Stop: 12/23/20 22:58 Last Admin: 12/23/20 23:06 Dose: 20 mg Documented by: Ceftriaxone Sodium 2 gm/ (Sodium Chloride) 100 mls @ 200 mls/hr IV ONETIME ONE Stop: 12/22/20 13:34 Last Admin: 12/22/20 13:11 Dose: 200 mls/hr Documented by: Sodium Chloride (Normal Saline) 1,000 mls @ 125 mls/hr IV ASDIRECTED [facility] Last Infusion: 12/22/20 14:00 Dose: 999 mls/hr Documented by: Sodium Chloride (Normal Saline) 1,000 mls @ 1,000 mls/hr IV ONETIME ONE Stop: 12/22/20 14:55 Last Admin: 12/22/20 15:05 Dose: 1,000 mls/hr Documented by: Sodium Chloride (Normal Saline) 1,000 mls @ 125 mls/hr IV ASDIRECTED [facility] Last Admin: 12/22/20 20:31 Dose: 150 mls/hr Documented by: Potassium Chloride 10 meq/ (Premix) 100 mls @ 100 mls/hr IV Q1H [facility] Stop: 12/23/20 04:14 Last Admin: 12/23/20 03:35 Dose: 100 mls/hr Documented by: Sodium Chloride (Sodium Chloride 0.45%) 1,000 mls @ 125 mls/hr IV ASDIRECTED [facility] Last Infusion: 12/23/20 06:00 Dose: 75 mls/hr Documented by: Potassium Chloride 20 meq/ (Dextrose/Water) 1,010 mls @ 75.75 mls/hr IV Q13H [facility] Last Admin: 12/24/20 00:27 Dose: 75.75 mls/hr Documented by: Potassium Chloride 10 meq/ (Premix) 100 mls @ 100 mls/hr IV Q1H [facility] Stop: 12/24/20 11:44 Last Admin: 12/24/20 11:30 Dose: 100 mls/hr Documented by: Sodium Chloride (Normal Saline) 1,000 mls @ 100 mls/hr IV ASDIRECTED [facility] Last Admin: 12/25/20 04:00 Dose: 100 mls/hr Documented by: Magnesium Sulfate (Magnesium Sulfate In Water 2 Gm/50 Ml) 2 gm in 50 mls @ 25 mls/hr IV ONETIME ONE Stop: 12/25/20 10:59 Last Admin: 12/25/20 08:35 Dose: 25 mls/hr Documented by: Insulin Glargine (Insulin Glarg,Human.Rec.Analog 100 Unit/Ml) 7 unit SUBCUT DAILY [facility] Last Admin: 12/23/20 16:16 Dose: 7 units Documented by: Insulin Human Lispro (Insulin Lispro 100 Unit/Ml) 8 unit SUBCUT ONETIME ONE Stop: 12/22/20 17:16 Last Admin: 12/22/20 18:05 Dose: 8 units Documented by: Insulin Human Lispro (Insulin Lispro 100 Units/Ml 3 Ml Vial) 0 unit SUBCUT QIDACANDBED [facility]; Protocol Insulin Human Lispro (Insulin Lispro 100 Unit/Ml) 0 unit SUBCUT QIDACANDBED [facility]; Protocol Last Admin: 12/22/20 23:10 Dose: 5 units Documented by: Insulin Human Lispro (Insulin Lispro 100 Unit/Ml) 10 unit SUBCUT ONETIME ONE Stop: 12/22/20 20:21 Last Admin: 12/22/20 20:28 Dose: 10 units Documented by: Insulin Human Lispro (Insulin Lispro 100 Unit/Ml) 2 unit SUBCUT ONETIME ONE; Protocol Stop: 12/23/20 02:11 Last Admin: 12/23/20 02:29 Dose: 2 units Documented by: Pantoprazole Sodium (Pantoprazole 40 Mg Tab.Cr) 40 mg PO DAILY@0700 [facility] Last Admin: 12/23/20 06:13 Dose: Not Given Documented by: - Exam Quality Assessment: Denies: Supplemental Oxygen HEENT: Reports: Pupils Equal Neck: Reports: Supple Lungs: Reports: Clear to Auscultation, Normal Respiratory Effort Cardiovascular: Reports: Regular Rate, Regular Rhythm GI/Abdominal Exam: Normal Bowel Sounds, Soft, Non-Tender, No Distention Neurological: Reports: No New Focal Deficit
[2020-12-25 15:39] VITALS: BP 117/56; PULSE 68
== END 2020-12-25 13:20 | disposition home or self-care (01) | DRG 872 ==
LOC: JD.ED 12:42 → JD.ICU 14:16
PROVIDERS: ADMIT Family Medicine; ATTEND Family Medicine
DX: A41.9 Sepsis, unspecified organism (principal); A41.51 Sepsis due to Escherichia coli [E. coli]; I12.9 Hypertensive chronic kidney disease with stage 1 through stage 4 chronic kidney disease, or unspecified chronic kidney disease; N17.9 Acute kidney failure, unspecified; H35.30 Unspecified macular degeneration; I13.0 Hypertensive heart and chronic kidney disease with heart failure and stage 1 through stage 4 chronic kidney disease, or unspecified chronic kidney disease; J98.11 Atelectasis; N30.00 Acute cystitis without hematuria; E87.0 Hyperosmolality and hypernatremia; R65.20 Severe sepsis without septic shock; D64.9 Anemia, unspecified; Z88.6 Allergy status to analgesic agent; N18.9 Chronic kidney disease, unspecified; Z20.822 Contact with and (suspected) exposure to COVID-19; Z66 Do not resuscitate; R73.9 Hyperglycemia, unspecified; I50.9 Heart failure, unspecified; R73.03 Prediabetes; K21.9 Gastro-esophageal reflux disease without esophagitis; F41.9 Anxiety disorder, unspecified; F03.90 Unspecified dementia, unspecified severity, without behavioral disturbance, psychotic disturbance, mood disturbance, and anxiety; F32.9 Major depressive disorder, single episode, unspecified; E55.9 Vitamin D deficiency, unspecified; D63.1 Anemia in chronic kidney disease; T17.990A Other foreign object in respiratory tract, part unspecified in causing asphyxiation, initial encounter; Z79.899 Other long term (current) drug therapy
CPT/HCPCS: 0240U; 36415; 51702; 71045; 80048; 80053; 81001; 82009; 82962; 83036; 83605; 83735; 83880; 84100; 84145; 84443; 85025; 86140; 87040; 87086; 87641; 92610; 94640; 94761; 96365; 99285; 87088; 87181; 87184; 87186; 99223; 99233; 99239; 99284; A9270-GY; C9113; J0696; J1644; J1815-GY; J1940; J3475; J3480; J7030; J7060; J7620-GY; U0002

== ENCOUNTER 2021-01-22 01:39 | Inpatient (IN) | payer MEDICARE, BC, MEDICAID ==
--- NOTE | 2021-01-22 02:27 | EDM.PDOC ---
ED HPI GENERAL MEDICAL PROBLEM - General Chief Complaint: General Stated Complaint: HARI AMB Time Seen by Provider: 01/22/21 02:05 Source of Information: Reports: EMS History Limitations: Reports: Altered Mental Status - History of Present Illness INITIAL COMMENTS - FREE TEXT/NARRATIVE: Ms. Anderson is an 89-year-old woman with a past medical history significant for advanced dementia, who is now brought to the ED from [facility] by EMS with a report of 2 days of lethargy/unresponsiveness. EMS reports that they were told that she has not had anything to eat or drink for the past 2 days. The care home papers indicate that the patient had a BP of 156/125, however, no further information is provided. EMS reports that her Accu-Chek was 241. Here in the ED, the patient's initial BP was found to be depressed at 92/76, although subsequent BP a few minutes later was found to be 108/71. She is tachypneic at 24 rpm, and afebrile. Her initial SpO2 was 88% on room air, 93% on 2 L of oxygen per nasal cannula. She is unresponsive; she winces to noxious stimuli, but does not respond to verbal stimuli. Due to the patient's altered mental status and lack of additional information from the care home, her recent review of systems is not obtainable. PMHx/PSHx/SocHx per prior medical records. The patient's PCP is Dr. Mauricio Lauren. - Related Data Allergies Allergy/AdvReac Type Severity Reaction Status Date / Time meperidine [From Demerol] Allergy Cannot Verified 01/22/21 01:45 Remember hydrocodone AdvReac Vomiting Verified 01/22/21 01:45 tramadol AdvReac Dizziness Verified 01/22/21 01:45 Home Meds: Home Meds Docusate Sodium/Sennosides [Senna Plus] 1 tab PO BID 12/22/20 [History] Lactobacillus Acidophilus/Fos [Acidophilus Probiotic Tablet] 1 tab PO BID 12/22/20 [History] Magnesium Hydroxide [Milk of Magnesia] 30 ml PO TID PRN 12/22/20 [History] Memantine [Namenda Xr] 14 mg PO DAILY 12/22/20 [History] Omeprazole 20 mg PO ACBREAKFAST 12/22/20 [History] bisacodyL [Dulcolax] 10 mg RECTAL DAILY PRN 12/22/20 [History] metFORMIN [Glucophage] 250 mg PO BID 12/22/20 [History] polyethylene glycoL 3350 [MiraLAX] 17 gm PO DAILY 12/22/20 [History] Ondansetron [Zofran ODT] 4 mg PO Q4H PRN 01/22/21 [History] Past Medical History HEENT History: Reports: Macular Degeneration Cardiovascular History: Reports: Hypertension Respiratory History: Reports: None Gastrointestinal History: Reports: GERD Other Gastrointestinal History: noninfective gastroenteritis, colitis, diarrhea, nausea Genitourinary History: Reports: Chronic Renal Insuffiency [employer]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 Endocrine/Metabolic History: Reports: Vitamin D Deficiency Hematologic History: Reports: Anemia - Past Surgical History GI Surgical History: Reports: Other (See Below) Other GI Surgeries/Procedures: colitis Female Surgical History: Reports: Mastectomy Other Female Surgeries/Procedures: Left sided mastectomy Social & Family History - Family History Family Medical History: No Pertinent Family History - Tobacco Use Tobacco Use Status *Q: Unknown Ever Used Tobacco - Caffeine Use Caffeine Use: Reports: None Caffeine Use Comment: Unknown due to pt condition. - Living Situation & Occupation Living situation: Reports: Extended Care Facility ED ROS GENERAL - Review of Systems Review Of Systems: Unable To Obtain Reason Not Obtained: Altered mental status - Physical Exam Exam: See Below Exam Limited By: Altered Mental Status General Appearance: No Apparent Distress, Obtunded Eye Exam: Bilateral Eye: EOMI (eyes wander when eyelids opened), Normal Inspection, PERRL Ears: Normal External Exam Nose: Normal Inspection Throat/Mouth: Normal Lips, No Airway Compromise, Other (Dry oral mucosa, but is mouth breathing) Head Exam: Atraumatic, Other (Deeply recessed eyes and bilateral temporal wasting) Neck: Normal Inspection. No: Lymphadenopathy (L), Lymphadenopathy (R) Respiratory/Chest: No Respiratory Distress, Lungs Clear, Normal Breath Sounds, No Accessory Muscle Use Cardiovascular: Normal Peripheral Pulses, Regular Rate, Rhythm, No Edema, No Gallop, No JVD, No Murmur, No Rub GI/Abdominal: Normal Bowel Sounds, Soft, No Organomegaly, No Distention, No Abnormal Bruit, No Mass Neuro Exam (Abbreviated): Other (Winces with noxious stimuli, but does not respond to verbal stimuli) Back Exam: Normal Inspection, Full Range of Motion, NT Extremities: Normal Inspection, No Pedal Edema, Normal Capillary Refill Skin Exam: Warm, Dry, Intact, Normal Color, No Rash #1 Interpretation EKG Date: 01/22/21 Time: 01:44 Rhythm: NSR Rate (Beats/Min): 97 P-Wave: Present QRS: LBBB QT: Prolonged (QTc 502 ms) Comparison: No Change (05/09/2014) Course - Vital Signs Last Recorded V/S: Last Vital Signs Temp 36.3 C 01/22/21 01:41 Pulse 98 01/22/21 01:45 Resp 24 H 01/22/21 01:45 BP 108/71 01/22/21 01:45 Pulse Ox 93 L 01/22/21 01:45 - Orders/Labs/Meds Orders: Active Orders 24 hr Category Date Time Status EKG Documentation Completion [RC] STAT Care 01/22/21 01:48 Active Ang Chest [CT] Stat Exams 01/22/21 03:10 Taken Chest 1V Frontal [CR] Stat Exams 01/22/21 01:50 Taken Head wo Cont [CT] Stat Exams 01/22/21 01:50 Taken CULTURE BLOOD [BC] Stat Lab 01/22/21 02:35 Received CULTURE BLOOD [BC] Stat Lab 01/22/21 02:40 Received CULTURE URINE [RM] Stat Lab 01/22/21 03:13 Ordered Sodium Chloride 0.9% [Normal Saline] 45 ml Med 01/22/21 03:45 Active IV ASDIRECTED Sodium Chloride 0.9% [Saline Flush] Med 01/22/21 03:39 Active 10 ml FLUSH ONETIME PRN Blood Culture x2 Reflex Set [OM.PC] Stat Oth 01/22/21 02:25 Ordered Medication Orders Sodium Chloride (Normal Saline) 45 mls @ 40 mls/hr IV ASDIRECTED ANKUR Last Admin: 01/22/21 03:41 Dose: 40 mls/hr Documented by: MARGIE Sodium Chloride (Sodium Chloride 0.9% 10 Ml Syringe) 10 ml FLUSH ONETIME PRN PRN Reason: Keep Vein Open Last Admin: 01/22/21 03:41 Dose: 10 ml Documented by: MARGIE Labs: Laboratory Tests 01/22/21 01/22/21 01/22/21 Range/Units 01:52 01:56 02:00 WBC (3.98-10.04) K/mm3 RBC (3.98-5.22) M/mm3 Hgb (11.2-15.7) gm/dl Hct (34.1-44.9) % MCV (79.4-94.8) fl MCH (25.6-32.2) pg MCHC (32.2-35.5) g/dl RDW Std Deviation (36.4-46.3) fL Plt Count (182-369) K/mm3 MPV (9.4-12.3) fl Neutrophils % (Manual) (40-60) % Band Neutrophils % (0-10) % Lymphocytes % (Manual) (20-40) % Atypical Lymphs % % Monocytes % (Manual) (2-10) % Eosinophils % (Manual) (0.7-5.8) % Basophils % (Manual) (0.1-1.2) Platelet Estimate Hypochromasia RBC Morph Comment PT (9.7-12.0) SECONDS INR APTT (21.7-31.4) SECONDS D-Dimer, Quantitative (0.19-0.50) mg/L Puncture Site Lt radial ABG pH 7.42 (7.35-7.45) ABG pCO2 33.7 L (35.0-45.0) mmHg ABG pO2 74.0 L (80.0-100.0) mmHg ABG HCO3 21.4 L (22.0-26.0) meq/L ABG O2 Saturation 94.5 L (96.0-97.0) % ABG Base Excess -1.9 (-2-2.0) Gato Test Positive A-a Gradient 84 mmHg O2 Delivery Device Nasal cannula Oxygen Flow Rate 2.0 FiO2 28.00 (21.00-100.00) % Sodium (136-145) mEq/L Potassium (3.5-5.1) mEq/L Chloride (98-107) mEq/L Carbon Dioxide (21-32) mEq/L Anion Gap (5-15) BUN (7-18) mg/dL Creatinine (0.55-1.02) mg/dL Est Cr Clr Drug Dosing Estimated GFR (MDRD) (>60) mL/min BUN/Creatinine Ratio (14-18) Glucose (83-115) mg/dL Lactic Acid (0.4-2.0) mmol/L Calcium (8.5-10.1) mg/dL Magnesium (1.8-2.4) mg/dl Total Bilirubin (0.2-1.0) mg/dL AST (15-37) U/L ALT (14-59) U/L Alkaline Phosphatase (46-116) U/L Troponin I (0.00-0.056) ng/mL NT-Pro-B Natriuret Pep (0-450) pg/mL Total Protein (6.4-8.2) g/dl Albumin (3.4-5.0) g/dl Globulin gm/dL Albumin/Globulin Ratio (1-2) TSH 3rd Generation (0.358-3.74) uIU/mL Urine Color Yellow (Yellow) Urine Appearance Cloudy H (Clear) Urine pH 6.0 (5.0-8.0) Ur Specific Kenner > or = 1.030 (1.005-1.030) Urine Protein 3+ H (Negative) Urine Glucose (UA) Negative (Negative) Urine Ketones Negative (Negative) Urine Occult Blood 2+ H (Negative) Urine Nitrite Negative (Negative) Urine Bilirubin 1+ H (Negative) Urine Urobilinogen 1.0 (0.2-1.0) Ur Leukocyte Esterase 3+ H (Negative) Urine RBC 0-5 (0-5) /hpf Urine WBC Too numerous to cnt H (0-5) /hpf Urine WBC Clumps Few (NOT SEEN) /hpf Ur Squamous Epith Cells 0-5 (0-5) /hpf Urine Bacteria Moderate H (FEW) /hpf Urine Mucus Not seen (FEW) /hpf Ketones (0.0-0.3) mM SARS-CoV-2 RNA (TRESSA) Negative (NEGATIVE) 01/22/21 01/22/21 01/22/21 Range/Units 02:12 02:12 02:12 WBC 23.60 H (3.98-10.04) K/mm3 RBC 4.98 (3.98-5.22) M/mm3 Hgb 14.4 D (11.2-15.7) gm/dl Hct 48.5 H (34.1-44.9) % MCV 97.4 H (79.4-94.8) fl MCH 28.9 (25.6-32.2) pg MCHC 29.7 L (32.2-35.5) g/dl RDW Std Deviation 54.0 H (36.4-46.3) fL Plt Count 393 H D (182-369) K/mm3 MPV 11.5 (9.4-12.3) fl Neutrophils % (Manual) 82 H (40-60) % Band Neutrophils % 0 (0-10) % Lymphocytes % (Manual) 14 L (20-40) % Atypical Lymphs % 0 % Monocytes % (Manual) 4 (2-10) % Eosinophils % (Manual) 0 L (0.7-5.8) % Basophils % (Manual) 0 L (0.1-1.2) Platelet Estimate Adequate Hypochromasia 1+ slight RBC Morph Comment Normal PT 12.0 (9.7-12.0) SECONDS INR 1.12 APTT 24.7 (21.7-31.4) SECONDS D-Dimer, Quantitative 1.18 H (0.19-0.50) mg/L Puncture Site ABG pH (7.35-7.45) ABG pCO2 (35.0-45.0) mmHg ABG pO2 (80.0-100.0) mmHg ABG HCO3 (22.0-26.0) meq/L ABG O2 Saturation (96.0-97.0) % ABG Base Excess (-2-2.0) Gato Test A-a Gradient mmHg O2 Delivery Device Oxygen Flow Rate FiO2 (21.00-100.00) % Sodium 152 H D (136-145) mEq/L Potassium 4.3 (3.5-5.1) mEq/L Chloride 114 H (98-107) mEq/L Carbon Dioxide 23 (21-32) mEq/L Anion Gap 19.3 H (5-15) BUN 59 H D (7-18) mg/dL Creatinine 1.8 H (0.55-1.02) mg/dL Est Cr Clr Drug Dosing TNP Estimated GFR (MDRD) 27 (>60) mL/min BUN/Creatinine Ratio 32.8 H (14-18) Glucose 294 H (83-115) mg/dL Lactic Acid (0.4-2.0) mmol/L Calcium 9.4 D (8.5-10.1) mg/dL Magnesium 2.9 H (1.8-2.4) mg/dl Total Bilirubin 0.8 (0.2-1.0) mg/dL AST 47 H (15-37) U/L ALT 66 H (14-59) U/L Alkaline Phosphatase 99 (46-116) U/L Troponin I < 0.017 (0.00-0.056) ng/mL NT-Pro-B Natriuret Pep (0-450) pg/mL Total Protein 8.6 H (6.4-8.2) g/dl Albumin 3.6 (3.4-5.0) g/dl Globulin 5.0 gm/dL Albumin/Globulin Ratio 0.7 L (1-2) TSH 3rd Generation 4.041 H (0.358-3.74) uIU/mL Urine Color (Yellow) Urine Appearance (Clear) Urine pH (5.0-8.0) Ur Specific Kenner (1.005-1.030) Urine Protein (Negative) Urine Glucose (UA) (Negative) Urine Ketones (Negative) Urine Occult Blood (Negative) Urine Nitrite (Negative) Urine Bilirubin (Negative) Urine Urobilinogen (0.2-1.0) Ur Leukocyte Esterase (Negative) Urine RBC (0-5) /hpf Urine WBC (0-5) /hpf Urine WBC Clumps (NOT SEEN) /hpf Ur Squamous Epith Cells (0-5) /hpf Urine Bacteria (FEW) /hpf Urine Mucus (FEW) /hpf Ketones (0.0-0.3) mM SARS-CoV-2 RNA (TRESSA) (NEGATIVE) 01/22/21 01/22/21 01/22/21 Range/Units 02:12 02:12 02:12 WBC (3.98-10.04) K/mm3 RBC (3.98-5.22) M/mm3 Hgb (11.2-15.7) gm/dl Hct (34.1-44.9) % MCV (79.4-94.8) fl MCH (25.6-32.2) pg MCHC (32.2-35.5) g/dl RDW Std Deviation (36.4-46.3) fL Plt Count (182-369) K/mm3 MPV (9.4-12.3) fl Neutrophils % (Manual) (40-60) % Band Neutrophils % (0-10) % Lymphocytes % (Manual) (20-40) % Atypical Lymphs % % Monocytes % (Manual) (2-10) % Eosinophils % (Manual) (0.7-5.8) % Basophils % (Manual) (0.1-1.2) Platelet Estimate Hypochromasia RBC Morph Comment PT (9.7-12.0) SECONDS INR APTT (21.7-31.4) SECONDS D-Dimer, Quantitative (0.19-0.50) mg/L Puncture Site ABG pH (7.35-7.45) ABG pCO2 (35.0-45.0) mmHg ABG pO2 (80.0-100.0) mmHg ABG HCO3 (22.0-26.0) meq/L ABG O2 Saturation (96.0-97.0) % ABG Base Excess (-2-2.0) Gato Test A-a Gradient mmHg O2 Delivery Device Oxygen Flow Rate FiO2 (21.00-100.00) % Sodium (136-145) mEq/L Potassium (3.5-5.1) mEq/L Chloride (98-107) mEq/L Carbon Dioxide (21-32) mEq/L Anion Gap (5-15) BUN (7-18) mg/dL Creatinine (0.55-1.02) mg/dL Est Cr Clr Drug Dosing Estimated GFR (MDRD) (>60) mL/min BUN/Creatinine Ratio (14-18) Glucose (83-115) mg/dL Lactic Acid 2.7 H* (0.4-2.0) mmol/L Calcium (8.5-10.1) mg/dL Magnesium (1.8-2.4) mg/dl Total Bilirubin (0.2-1.0) mg/dL AST (15-37) U/L ALT (14-59) U/L Alkaline Phosphatase (46-116) U/L Troponin I (0.00-0.056) ng/mL NT-Pro-B Natriuret Pep 1474 H (0-450) pg/mL Total Protein (6.4-8.2) g/dl Albumin (3.4-5.0) g/dl Globulin gm/dL Albumin/Globulin Ratio (1-2) TSH 3rd Generation (0.358-3.74) uIU/mL Urine Color (Yellow) Urine Appearance (Clear) Urine pH (5.0-8.0) Ur Specific Kenner (1.005-1.030) Urine Protein (Negative) Urine Glucose (UA) (Negative) Urine Ketones (Negative) Urine Occult Blood (Negative) Urine Nitrite (Negative) Urine Bilirubin (Negative) Urine Urobilinogen (0.2-1.0) Ur Leukocyte Esterase (Negative) Urine RBC (0-5) /hpf Urine WBC (0-5) /hpf Urine WBC Clumps (NOT SEEN) /hpf Ur Squamous Epith Cells (0-5) /hpf Urine Bacteria (FEW) /hpf Urine Mucus (FEW) /hpf Ketones 0.27 (0.0-0.3) mM SARS-CoV-2 RNA (TRESSA) (NEGATIVE) 01/22/21 Range/Units 05:07 WBC (3.98-10.04) K/mm3 RBC (3.98-5.22) M/mm3 Hgb (11.2-15.7) gm/dl Hct (34.1-44.9) % MCV (79.4-94.8) fl MCH (25.6-32.2) pg MCHC (32.2-35.5) g/dl RDW Std Deviation (36.4-46.3) fL Plt Count (182-369) K/mm3 MPV (9.4-12.3) fl Neutrophils % (Manual) (40-60) % Band Neutrophils % (0-10) % Lymphocytes % (Manual) (20-40) % Atypical Lymphs % % Monocytes % (Manual) (2-10) % Eosinophils % (Manual) (0.7-5.8) % Basophils % (Manual) (0.1-1.2) Platelet Estimate Hypochromasia RBC Morph Comment PT (9.7-12.0) SECONDS INR APTT (21.7-31.4) SECONDS D-Dimer, Quantitative (0.19-0.50) mg/L Puncture Site ABG pH (7.35-7.45) ABG pCO2 (35.0-45.0) mmHg ABG pO2 (80.0-100.0) mmHg ABG HCO3 (22.0-26.0) meq/L ABG O2 Saturation (96.0-97.0) % ABG Base Excess (-2-2.0) Gato Test A-a Gradient mmHg O2 Delivery Device Oxygen Flow Rate FiO2 (21.00-100.00) % Sodium (136-145) mEq/L Potassium (3.5-5.1) mEq/L Chloride (98-107) mEq/L Carbon Dioxide (21-32) mEq/L Anion Gap (5-15) BUN (7-18) mg/dL Creatinine (0.55-1.02) mg/dL Est Cr Clr Drug Dosing Estimated GFR (MDRD) (>60) mL/min BUN/Creatinine Ratio (14-18) Glucose (83-115) mg/dL Lactic Acid 2.8 H* (0.4-2.0) mmol/L Calcium (8.5-10.1) mg/dL Magnesium (1.8-2.4) mg/dl Total Bilirubin (0.2-1.0) mg/dL AST (15-37) U/L ALT (14-59) U/L Alkaline Phosphatase (46-116) U/L Troponin I (0.00-0.056) ng/mL NT-Pro-B Natriuret Pep (0-450) pg/mL Total Protein (6.4-8.2) g/dl Albumin (3.4-5.0) g/dl Globulin gm/dL Albumin/Globulin Ratio (1-2) TSH 3rd Generation (0.358-3.74) uIU/mL Urine Color (Yellow) Urine Appearance (Clear) Urine pH (5.0-8.0) Ur Specific [place] (1.005-1.030) Urine Protein (Negative) Urine Glucose (UA) (Negative) Urine Ketones (Negative) Urine Occult Blood (Negative) Urine Nitrite (Negative) Urine Bilirubin (Negative) Urine Urobilinogen (0.2-1.0) Ur Leukocyte Esterase (Negative) Urine RBC (0-5) /hpf Urine WBC (0-5) /hpf Urine WBC Clumps (NOT SEEN) /hpf Ur Squamous Epith Cells (0-5) /hpf Urine Bacteria (FEW) /hpf Urine Mucus (FEW) /hpf Ketones (0.0-0.3) mM SARS-CoV-2 RNA (TRESSA) (NEGATIVE) Meds: Medications Generic Name Dose Route Start Last Admin Trade Name Freq PRN Reason Stop Dose Admin Sodium Chloride 45 mls @ 40 mls/hr 01/22/21 03:45 01/22/21 03:41 Normal Saline IV 40 mls/hr ASDIRECTED ANKUR Administration Sodium Chloride 10 ml 01/22/21 03:39 01/22/21 03:41 Sodium Chloride 0.9% 10 Ml Syringe FLUSH 10 ml ONETIME PRN Administration Keep Vein Open Discontinued Medications Generic Name Dose Route Start Last Admin Trade Name Freq PRN Reason Stop Dose Admin Sodium Chloride 500 mls @ 1,000 mls/hr 01/22/21 02:36 01/22/21 02:40 Normal Saline IV 01/22/21 03:05 1,000 mls/hr .BOLUS ONE Administration Sodium Chloride 1,000 mls @ 999 mls/hr 01/22/21 03:09 01/22/21 03:56 Normal Saline IV 01/22/21 04:09 999 mls/hr ONETIME ONE Administration Levofloxacin/Dextrose 750 mg/ 150 mls @ 100 mls/hr 01/22/21 03:20 01/22/21 03:47 Premix IV 01/22/21 04:49 100 mls/hr ONETIME STA Administration Sodium Chloride 1,000 mls @ 500 mls/hr 01/22/21 04:28 01/22/21 05:31 Normal Saline IV 01/22/21 06:27 500 mls/hr ONETIME ONE Administration Norepinephrine Bitartrate 4 mg 250 mls @ 7.5 mls/hr 01/22/21 04:45 / Dextrose/Water IV TITRATE ANKUR Protocol 2 MCG/MIN Iopamidol 100 ml 01/22/21 03:39 01/22/21 03:41 Iopamidol 755 Mg/Ml 100 Ml Bottle IVPUSH 01/22/21 03:40 100 ml ONETIME ONE Administration - Re-Assessments/Exams Free Text/Narrative Re-Assessment/Exam: 01/22/21 02:24 As above, the patient has reportedly been lethargic/unresponsive for the past [address] from [facility] indicates a BP of 156/125, how ever, she was found to be somewhat hypotensive here in the ED. An ECG, obtained at triage, demonstrates a normal sinus rhythm at 97 bpm and a LBBB, also present on a prior ECG from 2013. On physical exam, the patient has deeply sunken eyes and bitemporal wasting. She winces with noxious stimuli, but does not respond to verbal stimuli. Her physical exam is otherwise grossly unremarkable. I have ordered a work-up that includes several blood tests, 2 sets of blood cultures, an ABG, a urinalysis by quick catheter, a swab for the SARS-CoV-2 virus, a portable chest x-ray, and a CT of the head without contrast. In the meantime, the patient will be given a 500 mL bolus of IV fluid. I want to be judicious with her IV fluid, as she has a history of CHF. 01/22/21 02:44 CT of the head without contrast is read by [email or web address] as "Advanced atrophy and nonspecific chronic white matter changes. No acute intracranial abnormality identified." 01/22/21 03:00 Portable chest radiograph reviewed. The cardiac silhouette is within normal limits. No pulmonary vascular congestion. No pleural effusions seen on this AP view. No focal infiltrate. No pneumothorax. The right hemidiaphragm is elevated, also seen on prior portable chest x-ray dated 12/24/2020. Formal read per the Radiologist pending. The patient's CMP is remarkable for hypernatremia of 152. Her anion gap is slightly elevated at 19.3, but with a bicarbonate normal at 23. Her BUN/Cr are elevated at 59/1.8, she has hyperglycemia of 294. Her magnesium level is slightly elevated at 2.9. Her lactic acid level is modestly elevated at 2.7. Her TSH is mildly elevated at 4.041. Her troponin is undetectably low. Her D-dimer is elevated at 1.18. Her coags are within normal limits. Her ABG demonstrates a chronic respiratory alkalosis with appropriately compensated metabolic acidosis. Her swab for the SARS-CoV-2 virus returned negative. Results of the patient's CBC, pro-BNP, serum ketones, and urinalysis are still pending. Review of prior labs finds that the patient's BUN/Cr was 22/1.2 on 12/25/2020. Based on the above, the patient appears to be dehydrated with acute renal failure. I will order a fluid bolus, along with a CT angiogram of the chest to evaluate for a PE. Her elevated lactic acid level appears to represent hyperlactemia, not lactic acidosis. Nevertheless, a repeat lactic acid level has been ordered. 01/22/21 03:16 The patient's urinalysis is remarkable for 2+ occult blood with 0-5 RBCs, 3+ leukocyte esterase with too numerous to count WBCs, nitrate negative with moderate bacteria, and 0-5 squamous epithelial cells. Based on the above, I have ordered a urine culture, and will start the patient on IV Levaquin for the treatment of presumed pyelonephritis as the cause of her altered mental status. 01/22/21 03:21 The patient's CBC is remarkable for leukocytosis of 23.60, but with 0% bandemia. Her Hct is mildly elevated at 48.5, but with a Hgb normal at 14.4. She has thrombocytosis of 393,000. 01/22/21 03:50 The patient's serum ketones are within normal limits at 0.27. Her pro-BNP is elevated at 1474. Review of prior labs finds that the patient's pro-BNP was 8711 on 12/22/2020. 01/22/21 04:10 CT angiogram of the chest is read by [facility] as: 1. No pulmonary embolism present. 2. Cardiomegaly and coronary atherosclerosis. 3. Moderate grade atherosclerotic change involving the aorta without aneurysm or dissection identified. 4. Patchy ground-glass opacity with areas of consolidation in the lower lobes. Finding is nonspecific. Correlate for possible atypical/viral pneumonia. Based on the above, if the patient has pneumonia, she is already being treated for with IV Levaquin. 01/22/21 04:30 The patient has received 1.5 L of NS. I have ordered an additional liter, to be given at 500 mL/h. Obviously, the patient is going to need to be admitted, however, I will let the Hospitalist sleep until 06:30, at which time I will call him for placement. We will keep the patient here in the ED in the meantime. 01/22/21 04:33 Notified by Kristen LUKE that despite aggressive treatment, the patient's most recent BP is 72/53. She appears to be suffering from sepsis. I will start her on low-dose norepinephrine. 01/22/21 05:23 Without treatment, the patient's BP is up to 102/66, with a MAP of 77, therefore the norepinephrine has not been started. 01/22/21 06:36 The patient's BP has remained high enough to not require pressors. Her repeat lactic acid stayed essentially unchanged at 2.8. Again, while she does not have lactic acidosis, she may have sepsis, and either way she is being treated for s uch with IV fluid and antibiotics. Case discussed with Dr. Jackson, Hospitalist, at 06:33. He accepted the patient for admission to the hospital. Departure - Departure Time of Disposition: 06:37 Disposition: Admitted As Inpatient 68 Condition: Fair Clinical Impression: Dehydration, Hyperglycemia, Acute renal insufficiency, Pyelonephritis - Discharge Information *PRESCRIPTION DRUG MONITORING PROGRAM REVIEWED*: Not Applicable *COPY OF PRESCRIPTION DRUG MONITORING REPORT IN PATIENT RYNE: Not Applicable Referrals: Mauricio Lauren MD [Primary Care Provider] - Forms: ED Department Discharge Sepsis Event Note (ED) - Evaluation Sepsis Screening Result: No Definite Risk - Focused Exam Vital Signs: Vital Signs Temp Pulse Resp BP Pulse Ox 01/22/21 01:45 98 24 H 108/71 93 L 01/22/21 01:41 36.3 C 100 24 H 92/76 88 L - My Orders Last 24 Hours: My Active Orders 01/22/21 01:48 EKG Documentation Completion [RC] STAT 01/22/21 01:50 Chest 1V Frontal [CR] Stat Head wo Cont [CT] Stat 01/22/21 02:25 Blood Culture x2 Reflex Set [OM.PC] Stat 01/22/21 02:35 CULTURE BLOOD [BC] Stat 01/22/21 02:40 CULTURE BLOOD [BC] Stat 01/22/21 03:10 Ang Chest [CT] Stat 01/22/21 03:13 CULTURE URINE [RM] Stat 01/22/21 03:39 Sodium Chloride 0.9% [Saline Flush] 10 ml FLUSH ONETIME PRN 01/22/21 03:45 Sodium Chloride 0.9% [Normal Saline] 45 ml IV ASDIRECTED - Assessment/Plan Last 24 Hours: My Active Orders 01/22/21 01:48 EKG Documentation Completion [RC] STAT 01/22/21 01:50 Chest 1V Frontal [CR] Stat Head wo Cont [CT] Stat 01/22/21 02:25 Blood Culture x2 Reflex Set [OM.PC] Stat 01/22/21 02:35 CULTURE BLOOD [BC] Stat 01/22/21 02:40 CULTURE BLOOD [BC] Stat 01/22/21 03:10 Ang Chest [CT] Stat 01/22/21 03:13 CULTURE URINE [RM] Stat 01/22/21 03:39 Sodium Chloride 0.9% [Saline Flush] 10 ml FLUSH ONETIME PRN 01/22/21 03:45 Sodium Chloride 0.9% [Normal Saline] 45 ml IV ASDIRECTED
[2021-01-22] MEDS ORDERED: Sodium Chloride 0.9% 500 ML IV ONE (02:36)
[2021-01-22] MEDS ORDERED: Sodium Chloride 0.9% 1,000 ML IV ONE ×2 (03:09→04:28)
[2021-01-22] MEDS ORDERED: Levofloxacin/Dextrose 5%-Water 750 MG in Premix Bag 1 BAG IV STA (03:20)
[2021-01-22] MEDS ORDERED: Sodium Chloride 0.9% 10 ML Syringe FLUSH PRN (03:39)
[2021-01-22] MEDS ORDERED: Iopamidol 755 Mg/ML 100 ML Bottle IVPUSH ONE (03:39)
[2021-01-22] MEDS ORDERED: Sodium Chloride 0.9% 45 ML IV SCH (03:45)
[2021-01-22] MEDS ORDERED: Norepinephrine 4 MG in Dextrose 5% in Water 246 ML IV SCH ×2 (04:45)
--- NOTE | 2021-01-22 07:57 | CR ---
Chest: Portable view of the chest is obtained. Comparison: Prior chest x-ray 12/24/20. Chronically elevated right hemidiaphragm is seen. Patchy areas of interstitial change are seen within the right perihilar region. Left lung appears to be fairly clear. Heart size appears within normal limits for portable technique. Tortuous thoracic aorta is seen. Bony structures are grossly intact. Impression: 1. Increased interstitial change within the right perihilar region raising the possibility of diffuse bronchitis or early areas of pneumonia. Please correlate if patient has infectious symptoms. 2. Other findings believed to be chronic. Diagnostic code #3
--- NOTE | 2021-01-22 08:25 | CT ---
CT chest Technique: Multiple axial sections were obtained from above the lung apices inferiorly through the lung bases. Intravenous contrast was utilized. Study has been performed as a pulmonary angiogram protocol. Comparison: Prior chest x-ray performed earlier on the same day (2:26 AM). Older chest CT study of 06/17/10 is also available. Findings: Elevated right hemidiaphragm is seen. This is a chronic finding. Pulmonary arteries are well opacified. No filling defects are seen to indicate pulmonary embolism. Atherosclerotic calcification is seen within the thoracic aorta. No aneurysm is seen. Mediastinum and hilar regions show no adenopathy. No pericardial thickening is appreciated. Mild atherosclerotic change is seen within the coronary arteries. Small portion of the visualized upper abdominal structures shows a cyst within the left kidney measuring 7.2 cm. Smaller cyst is noted within the right kidney measuring 1.7 cm. Low-density lesion is noted within the left lobe of the liver measuring 3.9 cm in size most likely representing an additional cyst. Lung window settings were reviewed. Patchy areas of increased density within the right upper and right lower lung are seen. Left lower lung also shows slight increased density. Left lung is otherwise clear. Bone window settings were reviewed which show osteopenia. No acute osseous abnormality is appreciated. Impression: 1. No findings of pulmonary embolism. 2. Patchy areas of increased density within the right upper and right lower lung as well as minimally within the left lower lung. Please correlate if patient has any symptoms of infection for this to represent viral or bacterial pneumonia. 3. Other nonacute findings as noted above. Diagnostic code #3 I agree with preliminary report from [facility], finalized on 01/22/21, 4:50 AM CDT, code 1
--- NOTE | 2021-01-22 08:34 | CT ---
Head CT Technique: Multiple axial sections through the brain were obtained. Intravenous contrast was not utilized. Reconstructed coronal and sagittal images were obtained. Comparison: Prior head CT study of 11/18/13. Findings: Ventricles along with basal cisterns and sulci over the convexities are moderately prominent. Ventricular system has increased in size from previous exam. Diminished density is noted within the periventricular white matter which is also increased from prior study. There is diminished density most likely due to small vessel ischemic demyelination change. No other abnormal parenchymal densities are seen. No evidence of intracranial hemorrhage. No midline shift or mass-effect is seen. Bone window settings were reviewed which show no acute mastoid sinus or paranasal sinus findings. Atherosclerotic change is seen within the carotid siphon and vertebral vessels. No acute calvarial abnormality is appreciated. Impression: 1. Diffuse senescent change which has increased from prior head CT study. 2. No acute intracranial abnormality is otherwise seen. Diagnostic code #2 I agree with preliminary report from [facility], finalized on 01/24/21, 3:42 AM CDT, code 1
--- NOTE | 2021-01-22 09:01 | PCM.HP.2 ---
H&P History of Present Illness - General Date of Service: 01/22/21 Admit Problem/Dx: Admission Diagnosis/Problem Admission Diagnosis/Problem Pyelonephritis - History of Present Illness Initial Comments - Free Text/Narative: Patient is a 89-year-old female with advanced dementia who [facility] presented to the emergency department after having a bout of hypotension at the nursing facility. At time presentation to the emergency department patient was found to be hypotensive however this did respond to fluid resuscitation and vasopressors did not need to be initiated. During the work-up in the emergency department patient found to have suspected urinary tract infection as well as a right-sided pneumonia on CTA of the chest. Patient was found to be hypernatremic with evidence of acute kidney injury as well. Patient was on IV fluids as well as given empiric Levaquin for coverage of pneumonia and urinary tract infection. It appears in review of patient's chart as she has advanced dementia and is unable to contribute to HPI review of systems that on 12/22/2020 she was found to have a complicated urinary tract infection with culture positive for E. coli as well as Aerococcus. Sensitivities do show that they were sensitive to Rocephin. Previous culture results in 2017 showed E. coli resistant to fluoroquinolones. - Related Data Allergies/Adverse Reactions: Allergies Allergy/AdvReac Type Severity Reaction Status Date / Time meperidine [From Demerol] Allergy Cannot Verified 01/22/21 01:45 Remember hydrocodone AdvReac Vomiting Verified 01/22/21 01:45 tramadol AdvReac Dizziness Verified 01/22/21 01:45 Home Medications: Home Meds Docusate Sodium/Sennosides [Senna Plus] 1 tab PO BID 12/22/20 [History] Lactobacillus Acidophilus/Fos [Acidophilus Probiotic Tablet] 1 tab PO BID 12/22/20 [History] Magnesium Hydroxide [Milk of Magnesia] 30 ml PO TID PRN 12/22/20 [History] Memantine [Namenda Xr] 14 mg PO DAILY 12/22/20 [History] Omeprazole 20 mg PO ACBREAKFAST 12/22/20 [History] bisacodyL [Dulcolax] 10 mg RECTAL DAILY PRN 12/22/20 [History] metFORMIN [Glucophage] 250 mg PO BID 12/22/20 [History] polyethylene glycoL 3350 [MiraLAX] 17 gm PO DAILY 12/22/20 [History] Ondansetron [Zofran ODT] 4 mg PO Q4H PRN 01/22/21 [History] Past Medical History HEENT History: Reports: Macular Degeneration Cardiovascular History: Reports: Hypertension Respiratory History: Reports: None Gastrointestinal History: Reports: GERD Other Gastrointestinal History: noninfective gastroenteritis, colitis, diarrhea, nausea 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 Endocrine/Metabolic History: Reports: Vitamin D Deficiency Hematologic History: Reports: Anemia - Past Surgical History GI Surgical History: Reports: Other (See Below) Other GI Surgeries/Procedures: colitis Female Surgical History: Reports: Mastectomy Other Female Surgeries/Procedures: Left sided mastectomy Social & Family History - Family History Family Medical History: No Pertinent Family History - Tobacco Use Tobacco Use Status *Q: Unknown Ever Used Tobacco - Caffeine Use Caffeine Use: Reports: None Caffeine Use Comment: Unknown due to pt condition. - Living Situation & Occupation Living situation: Reports: Extended Care Facility H&P Review of Systems - Review of Systems: Review Of Systems: Unable To Obtain Reason Not Obtained: baseline dementia Exam - Exam Exam: See Below - Vital Signs Vital Signs: Last Vital Signs Temp 97.3 F 01/22/21 01:41 Pulse 71 01/22/21 07:40 Resp 20 01/22/21 07:40 BP 123/76 01/22/21 07:40 Pulse Ox 95 01/22/21 07:40 - Exam General: Lethargic, Other (No acute distress ). No: Oriented HEENT: Conjunctiva Clear, Pupils Equal, Other (dry mucus membranes ) Neck: Supple, Trachea Midline Lungs: Normal Respiratory Effort, Decreased Breath Sounds (RLL, ). No: Crackles, Stridor, Wheezing Cardiovascular: Regular Rate, Regular Rhythm, Systolic Murmur GI/Abdominal Exam: Normal Bowel Sounds, Soft, Non-Tender, No Organomegaly, No Distention Extremities: Normal Inspection, Non-Tender, No Pedal Edema Peripheral Pulses: 2+: Radial (L), Radial (R), Dorsalis Pedis (L), Dorsalis Pedis (R) Skin: Warm, Dry, Intact Neuro Extensive - Mental Status: Other (Advanced dementia, baseline A/O x 1). No: Oriented x3, Memory Intact - Patient Data Lab Results Last 24 hrs: Laboratory Results - last 24 hr 01/22/21 01/22/21 01/22/21 Range/Units 01:52 01:56 02:00 WBC (3.98-10.04) K/mm3 RBC (3.98-5.22) M/mm3 Hgb (11.2-15.7) gm/dl Hct (34.1-44.9) % MCV (79.4-94.8) fl MCH (25.6-32.2) pg MCHC (32.2-35.5) g/dl RDW Std Deviation (36.4-46.3) fL Plt Count (182-369) K/mm3 MPV (9.4-12.3) fl Neutrophils % (Manual) (40-60) % Band Neutrophils % (0-10) % Lymphocytes % (Manual) (20-40) % Atypical Lymphs % % Monocytes % (Manual) (2-10) % Eosinophils % (Manual) (0.7-5.8) % Basophils % (Manual) (0.1-1.2) Platelet Estimate Hypochromasia RBC Morph Comment PT (9.7-12.0) SECONDS INR APTT (21.7-31.4) SECONDS D-Dimer, Quantitative (0.19-0.50) mg/L Puncture Site Lt radial ABG pH 7.42 (7.35-7.45) ABG pCO2 33.7 L (35.0-45.0) mmHg ABG pO2 74.0 L (80.0-100.0) mmHg ABG HCO3 21.4 L (22.0-26.0) meq/L ABG O2 Saturation 94.5 L (96.0-97.0) % ABG Base Excess -1.9 (-2-2.0) Gato Test Positive A-a Gradient 84 mmHg O2 Delivery Device Nasal cannula Oxygen Flow Rate 2.0 FiO2 28.00 (21.00-100.00) % Sodium (136-145) mEq/L Potassium (3.5-5.1) mEq/L Chloride (98-107) mEq/L Carbon Dioxide (21-32) mEq/L Anion Gap (5-15) BUN (7-18) mg/dL Creatinine (0.55-1.02) mg/dL Est Cr Clr Drug Dosing Estimated GFR (MDRD) (>60) mL/min BUN/Creatinine Ratio (14-18) Glucose (83-115) mg/dL Lactic Acid (0.4-2.0) mmol/L Calcium (8.5-10.1) mg/dL Magnesium (1.8-2.4) mg/dl Total Bilirubin (0.2-1.0) mg/dL AST (15-37) U/L ALT (14-59) U/L Alkaline Phosphatase (46-116) U/L Troponin I (0.00-0.056) ng/mL NT-Pro-B Natriuret Pep (0-450) pg/mL Total Protein (6.4-8.2) g/dl Albumin (3.4-5.0) g/dl Globulin gm/dL Albumin/Globulin Ratio (1-2) TSH 3rd Generation (0.358-3.74) uIU/mL Urine Color Yellow (Yellow) Urine Appearance Cloudy H (Clear) Urine pH 6.0 (5.0-8.0) Ur Specific [place] > or = 1.030 (1.005-1.030) Urine Protein 3+ H (Negative) Urine Glucose (UA) Negative (Negative) Urine Ketones Negative (Negative) Urine Occult Blood 2+ H (Negative) Urine Nitrite Negative (Negative) Urine Bilirubin 1+ H (Negative) Urine Urobilinogen 1.0 (0.2-1.0) Ur Leukocyte Esterase 3+ H (Negative) Urine RBC 0-5 (0-5) /hpf Urine WBC Too numerous to cnt H (0-5) /hpf Urine WBC Clumps Few (NOT SEEN) /hpf Ur Squamous Epith Cells 0-5 (0-5) /hpf Urine Bacteria Moderate H (FEW) /hpf Urine Mucus Not seen (FEW) /hpf Ketones (0.0-0.3) mM SARS-CoV-2 RNA (TRESSA) Negative (NEGATIVE) 01/22/21 01/22/21 01/22/21 Range/Units 02:12 02:12 02:12 WBC 23.60 H (3.98-10.04) K/mm3 RBC 4.98 (3.98-5.22) M/mm3 Hgb 14.4 D (11.2-15.7) gm/dl Hct 48.5 H (34.1-44.9) % MCV 97.4 H (79.4-94.8) fl MCH 28.9 (25.6-32.2) pg MCHC 29.7 L (32.2-35.5) g/dl RDW Std Deviation 54.0 H (36.4-46.3) fL Plt Count 393 H D (182-369) K/mm3 MPV 11.5 (9.4-12.3) fl Neutrophils % (Manual) 82 H (40-60) % Band Neutrophils % 0 (0-10) % Lymphocytes % (Manual) 14 L (20-40) % Atypical Lymphs % 0 % Monocytes % (Manual) 4 (2-10) % Eosinophils % (Manual) 0 L (0.7-5.8) % Basophils % (Manual) 0 L (0.1-1.2) Platelet Estimate Adequate Hypochromasia 1+ slight RBC Morph Comment Normal PT 12.0 (9.7-12.0) SECONDS INR 1.12 APTT 24.7 (21.7-31.4) SECONDS D-Dimer, Quantitative 1.18 H (0.19-0.50) mg/L Puncture Site ABG pH (7.35-7.45) ABG pCO2 (35.0-45.0) mmHg ABG pO2 (80.0-100.0) mmHg ABG HCO3 (22.0-26.0) meq/L ABG O2 Saturation (96.0-97.0) % ABG Base Excess (-2-2.0) Gato Test A-a Gradient mmHg O2 Delivery Device Oxygen Flow Rate FiO2 (21.00-100.00) % Sodium 152 H D (136-145) mEq/L Potassium 4.3 (3.5-5.1) mEq/L Chloride 114 H (98-107) mEq/L Carbon Dioxide 23 (21-32) mEq/L Anion Gap 19.3 H (5-15) BUN 59 H D (7-18) mg/dL Creatinine 1.8 H (0.55-1.02) mg/dL Est Cr Clr Drug Dosing TNP Estimated GFR (MDRD) 27 (>60) mL/min BUN/Creatinine Ratio 32.8 H (14-18) Glucose 294 H (83-115) mg/dL Lactic Acid (0.4-2.0) mmol/L Calcium 9.4 D (8.5-10.1) mg/dL Magnesium 2.9 H (1.8-2.4) mg/dl Total Bilirubin 0.8 (0.2-1.0) mg/dL AST 47 H (15-37) U/L ALT 66 H (14-59) U/L Alkaline Phosphatase 99 (46-116) U/L Troponin I < 0.017 (0.00-0.056) ng/mL NT-Pro-B Natriuret Pep (0-450) pg/mL Total Protein 8.6 H (6.4-8.2) g/dl Albumin 3.6 (3.4-5.0) g/dl Globulin 5.0 gm/dL Albumin/Globulin Ratio 0.7 L (1-2) TSH 3rd Generation 4.041 H (0.358-3.74) uIU/mL Urine Color (Yellow) Urine Appearance (Clear) Urine pH (5.0-8.0) Ur Specific [place] (1.005-1.030) Urine Protein (Negative) Urine Glucose (UA) (Negative) Urine Ketones (Negative) Urine Occult Blood (Negative) Urine Nitrite (Negative) Urine Bilirubin (Negative) Urine Urobilinogen (0.2-1.0) Ur Leukocyte Esterase (Negative) Urine RBC (0-5) /hpf Urine WBC (0-5) /hpf Urine WBC Clumps (NOT SEEN) /hpf Ur Squamous Epith Cells (0-5) /hpf Urine Bacteria (FEW) /hpf Urine Mucus (FEW) /hpf Ketones (0.0-0.3) mM SARS-CoV-2 RNA (TRESSA) (NEGATIVE) 01/22/21 01/22/21 01/22/21 Range/Units 02:12 02:12 02:12 WBC (3.98-10.04) K/mm3 RBC (3.98-5.22) M/mm3 Hgb (11.2-15.7) gm/dl Hct (34.1-44.9) % MCV (79.4-94.8) fl MCH (25.6-32.2) pg MCHC (32.2-35.5) g/dl RDW Std Deviation (36.4-46.3) fL Plt Count (182-369) K/mm3 MPV (9.4-12.3) fl Neutrophils % (Manual) (40-60) % Band Neutrophils % (0-10) % Lymphocytes % (Manual) (20-40) % Atypical Lymphs % % Monocytes % (Manual) (2-10) % Eosinophils % (Manual) (0.7-5.8) % Basophils % (Manual) (0.1-1.2) Platelet Estimate Hypochromasia RBC Morph Comment PT (9.7-12.0) SECONDS INR APTT (21.7-31.4) SECONDS D-Dimer, Quantitative (0.19-0.50) mg/L Puncture Site ABG pH (7.35-7.45) ABG pCO2 (35.0-45.0) mmHg ABG pO2 (80.0-100.0) mmHg ABG HCO3 (22.0-26.0) meq/L ABG O2 Saturation (96.0-97.0) % ABG Base Excess (-2-2.0) Gato Test A-a Gradient mmHg O2 Delivery Device Oxygen Flow Rate FiO2 (21.00-100.00) % Sodium (136-145) mEq/L Potassium (3.5-5.1) mEq/L Chloride (98-107) mEq/L Carbon Dioxide (21-32) mEq/L Anion Gap (5-15) BUN (7-18) mg/dL Creatinine (0.55-1.02) mg/dL Est Cr Clr Drug Dosing Estimated GFR (MDRD) (>60) mL/min BUN/Creatinine Ratio (14-18) Glucose (83-115) mg/dL Lactic Acid 2.7 H* (0.4-2.0) mmol/L Calcium (8.5-10.1) mg/dL Magnesium (1.8-2.4) mg/dl Total Bilirubin (0.2-1.0) mg/dL AST (15-37) U/L ALT (14-59) U/L Alkaline Phosphatase (46-116) U/L Troponin I (0.00-0.056) ng/mL NT-Pro-B Natriuret Pep 1474 H (0-450) pg/mL Total Protein (6.4-8.2) g/dl Albumin (3.4-5.0) g/dl Globulin gm/dL Albumin/Globulin Ratio (1-2) TSH 3rd Generation (0.358-3.74) uIU/mL Urine Color (Yellow) Urine Appearance (Clear) Urine pH (5.0-8.0) Ur Specific [place] (1.005-1.030) Urine Protein (Negative) Urine Glucose (UA) (Negative) Urine Ketones (Negative) Urine Occult Blood (Negative) Urine Nitrite (Negative) Urine Bilirubin (Negative) Urine Urobilinogen (0.2-1.0) Ur Leukocyte Esterase (Negative) Urine RBC (0-5) /hpf Urine WBC (0-5) /hpf Urine WBC Clumps (NOT SEEN) /hpf Ur Squamous Epith Cells (0-5) /hpf Urine Bacteria (FEW) /hpf Urine Mucus (FEW) /hpf Ketones 0.27 (0.0-0.3) mM SARS-CoV-2 RNA (TRESSA) (NEGATIVE) 01/22/21 Range/Units 05:07 WBC (3.98-10.04) K/mm3 RBC (3.98-5.22) M/mm3 Hgb (11.2-15.7) gm/dl Hct (34.1-44.9) % MCV (79.4-94.8) fl MCH (25.6-32.2) pg MCHC (32.2-35.5) g/dl RDW Std Deviation (36.4-46.3) fL Plt Count (182-369) K/mm3 MPV (9.4-12.3) fl Neutrophils % (Manual) (40-60) % Band Neutrophils % (0-10) % Lymphocytes % (Manual) (20-40) % Atypical Lymphs % % Monocytes % (Manual) (2-10) % Eosinophils % (Manual) (0.7-5.8) % Basophils % (Manual) (0.1-1.2) Platelet Estimate Hypochromasia RBC Morph Comment PT (9.7-12.0) SECONDS INR APTT (21.7-31.4) SECONDS D-Dimer, Quantitative (0.19-0.50) mg/L Puncture Site ABG pH (7.35-7.45) ABG pCO2 (35.0-45.0) mmHg ABG pO2 (80.0-100.0) mmHg ABG HCO3 (22.0-26.0) meq/L ABG O2 Saturation (96.0-97.0) % ABG Base Excess (-2-2.0) Gato Test A-a Gradient mmHg O2 Delivery Device Oxygen Flow Rate FiO2 (21.00-100.00) % Sodium (136-145) mEq/L Potassium (3.5-5.1) mEq/L Chloride (98-107) mEq/L Carbon Dioxide (21-32) mEq/L Anion Gap (5-15) BUN (7-18) mg/dL Creatinine (0.55-1.02) mg/dL Est Cr Clr Drug Dosing Estimated GFR (MDRD) (>60) mL/min BUN/Creatinine Ratio (14-18) Glucose (83-115) mg/dL Lactic Acid 2.8 H* (0.4-2.0) mmol/L Calcium (8.5-10.1) mg/dL Magnesium (1.8-2.4) mg/dl Total Bilirubin (0.2-1.0) mg/dL AST (15-37) U/L ALT (14-59) U/L Alkaline Phosphatase (46-116) U/L Troponin I (0.00-0.056) ng/mL NT-Pro-B Natriuret Pep (0-450) pg/mL Total Protein (6.4-8.2) g/dl Albumin (3.4-5.0) g/dl Globulin gm/dL Albumin/Globulin Ratio (1-2) TSH 3rd Generation (0.358-3.74) uIU/mL Urine Color (Yellow) Urine Appearance (Clear) Urine pH (5.0-8.0) Ur Specific [place] (1.005-1.030) Urine Protein (Negative) Urine Glucose (UA) (Negative) Urine Ketones (Negative) Urine Occult Blood (Negative) Urine Nitrite (Negative) Urine Bilirubin (Negative) Urine Urobilinogen (0.2-1.0) Ur Leukocyte Esterase (Negative) Urine RBC (0-5) /hpf Urine WBC (0-5) /hpf Urine WBC Clumps (NOT SEEN) /hpf Ur Squamous Epith Cells (0-5) /hpf Urine Bacteria (FEW) /hpf Urine Mucus (FEW) /hpf Ketones (0.0-0.3) mM SARS-CoV-2 RNA (TRESSA) (NEGATIVE) Result Diagrams: 01/22/21 02:12 01/22/21 02:12 Sepsis Event Note - Evaluation Sepsis Screening Result: No Definite Risk - Focused Exam Vital Signs: Vital Signs Temp Pulse Resp BP Pulse Ox 01/22/21 07:40 71 20 123/76 95 01/22/21 01:45 98 24 H 108/71 93 L 01/22/21 01:41 97.3 F 100 24 H 92/76 88 L Problem List Initiated/Reviewed/Updated: Yes Orders Last 24hrs: Active Orders 24 hr Category Date Time Status Patient Status [ADT] Routine ADT 01/22/21 06:49 Active CULTURE BLOOD [BC] Stat Lab 01/22/21 02:35 Received CULTURE BLOOD [BC] Stat Lab 01/22/21 02:40 Received CULTURE URINE [RM] Stat Lab 01/22/21 03:13 Ordered METH-RESIST S.AUR,MRSA BY PCR [MOLEC] Routine Lab 01/22/21 08:30 Received Sodium Chloride 0.9% [Normal Saline] 45 ml Med 01/22/21 03:45 Active IV ASDIRECTED Sodium Chloride 0.9% [Saline Flush] Med 01/22/21 03:39 Active 10 ml FLUSH ONETIME PRN Blood Culture x2 Reflex Set [OM.PC] Stat Oth 01/22/21 02:25 Ordered Medication Orders Sodium Chloride (Normal Saline) 45 mls @ 40 mls/hr IV ASDIRECTED [facility] Last Admin: 01/22/21 03:41 Dose: 40 mls/hr Documented by: MARGIE Sodium Chloride (Sodium Chloride 0.9% 10 Ml Syringe) 10 ml FLUSH ONETIME PRN PRN Reason: Keep Vein Open Last Admin: 01/22/21 03:41 Dose: 10 ml Documented by: MARGIE Assessment/Plan Comment:: A: Sepsis -Suspected Urinary Source: 3+ Leuk esterase, too numerous to count white blood cells, positive bacteria -Patchy areas of increased density within the right upper lobe and right lower lung possibly representing pneumonia, ? aspiration -WBC 23.6, Lactic Acid 2.8 -Neutrophils 82% -Negative COVID-19 -Recent admission on 12/22/2020 for complicated urinary tract infection at which time patient was started on Rocephin. It appears patient had both Aerococcus as well as E. coli in the urine, both were sensitive to Rocephin. In 2017 patient had a urine culture for E. coli that was resistant to fluoroquinolones Acute Hypoxic Respiratory Failure -PO2 74, O2% 94.5 on ABG Hypernatremia -Na 152, suspect secondary to intravascular volume depletion MATT -BUN 59, Cr 1.8 in setting of intravascular volume depletion -CTA in the ED Elevated proBNP -1474 Transaminitis -Mild AST 47, ALT 66 -Normal Alk/Tbili -No evidence of obstruction/acue abril Elevated D dimer -1.18, CTA in ED no PE Advanced Dementia -Baseline A/O x 1 Plan: -Admit to inpatient -Rocephin, Azithromycin, DC Levaquin given resistance profile of previous cultures -D5W @ 75cc/hr given hypernatremia, intra-vascular volume depletion -Follow Serum Cr, Na -Titrate oxygen to maintain spo2 >90% -Blood cultures/urine cultures pending -SCDs -Cooling measures prn -Sepsis bundles -Repeat lactic acid at 1300 -Heparin subq bid, SCD for DVT prophylaxis -Case mgmt -Regular diet when able -DNR/DNI - Mortality Measure Prognosis:: Good
[2021-01-22] MEDS ORDERED: Ondansetron 4 MG/2 ML SDV IVPUSH PRN (09:35)
[2021-01-22] MEDS ORDERED: Acetaminophen/oxyCODONE 325-5 MG Tab PO PRN (09:35)
[2021-01-22] MEDS ORDERED: Acetaminophen 325 MG Tab PO PRN (09:36)
[2021-01-22] MEDS ORDERED: Dextrose 5% in Water 1,000 ML IV SCH ×2 (09:45→16:45)
[2021-01-22] MEDS: cefTRIAXone 1 GM in Sodium Chloride 0.9% 100 ML IV SCH (09:59)
[2021-01-22] MEDS: Heparin Sodium 5,000 Units/ML Vial SUBCUT SCH ×2 (10:04→21:08)
[2021-01-22] MEDS: Azithromycin 500 MG in Sodium Chloride 0.9% 250 ML IV SCH (10:35)
[2021-01-23] MEDS ORDERED: Potassium Chloride 20 MEQ in Dextrose 5% in Water 1,000 ML IV SCH ×2 (07:30)
[2021-01-23] MEDS ORDERED: Bisacodyl 5 MG Tab PO PRN (07:38)
[2021-01-23] MEDS: Polyethylene Glycol 3350 Powder 17 GM Packet PO SCH (08:20)
[2021-01-23] MEDS: Potassium Chloride 20 MEQ in Dextrose 5% in Water 1,000 ML IV SCH ×4 (08:36→21:58)
[2021-01-23] MEDS: Saccharomyces Boulardii (Probiotic) 250 MG Cap PO SCH ×2 (08:40→21:46)
[2021-01-23] MEDS: cefTRIAXone 1 GM in Sodium Chloride 0.9% 100 ML IV SCH (09:20)
[2021-01-23] MEDS: Heparin Sodium 5,000 Units/ML Vial SUBCUT SCH ×2 (09:21→21:58)
[2021-01-23] MEDS: Azithromycin 500 MG in Sodium Chloride 0.9% 250 ML IV SCH (10:16)
--- NOTE | 2021-01-23 12:39 | PCM.PN ---
- General Info Date of Service: 01/23/21 Admission Dx/Problem (Free Text): Admission Diagnosis/Problem Admission Diagnosis/Problem Pyelonephritis Subjective Update: Patient is a 89-year-old female with advanced dementia who resides in a longterm presented to the emergency department after having a bout of hypotension at the nursing facility. Patient is nonverbal and does not answer any questions. I was reported that patient has not been eating and drinking well since 2 days before patient came to the hospital. RN Tee and I spoke to daughter Tali HECK) by phone ([phone]). I explained patient condition and treatment options. Tali would like to pursue palliative care for her. Tali refused tube feeding and no longer wants blood tests and imaging tests. No aggressive treatment. But she would like to continue antibiotic, IV fluid and oxygen. - Review of Systems Systems Review Comment:: Unable to obtain because patient does not answer any questions. - Patient Data Vitals - Most Recent: Last Vital Signs Temp 35.4 C L 01/23/21 08:03 Pulse 45 L 01/23/21 08:03 Resp 14 01/23/21 08:03 BP 112/37 L 01/23/21 08:03 Pulse Ox 95 01/23/21 08:03 Weight - Most Recent: 58.468 kg I&O - Last 24 Hours: Intake & Output 01/22/21 01/23/21 01/23/21 22:59 06:59 14:59 Intake Total 1020 880 Balance 1020 880 Lab Results Last 24 Hours: Laboratory Results - last 24 hr 01/22/21 01/22/21 01/22/21 Range/Units 13:18 15:57 18:45 WBC (3.98-10.04) K/mm3 RBC (3.98-5.22) M/mm3 Hgb (11.2-15.7) gm/dl Hct (34.1-44.9) % MCV (79.4-94.8) fl MCH (25.6-32.2) pg MCHC (32.2-35.5) g/dl RDW Std Deviation (36.4-46.3) fL Plt Count (182-369) K/mm3 MPV (9.4-12.3) fl Neut % (Auto) (34.0-71.1) % Lymph % (Auto) (19.3-51.7) % Gregory % (Auto) (4.7-12.5) % Eos % (Auto) (0.7-5.8) Baso % (Auto) (0.1-1.2) % Neut # (Auto) (1.56-6.13) K/mm3 Lymph # (Auto) (1.18-3.74) K/mm3 Gregory # (Auto) (0.24-0.36) K/mm3 Eos # (Auto) (0.04-0.36) K/mm3 Baso # (Auto) (0.01-0.08) K/mm3 Manual Slide Review Sodium (136-145) mEq/L Potassium (3.5-5.1) mEq/L Chloride (98-107) mEq/L Carbon Dioxide (21-32) mEq/L Anion Gap (5-15) BUN (7-18) mg/dL Creatinine (0.55-1.02) mg/dL Est Cr Clr Drug Dosing mL/min Estimated GFR (MDRD) (>60) mL/min BUN/Creatinine Ratio (14-18) Glucose (83-115) mg/dL Lactic Acid 2.4 H* 2.6 H* 2.4 H* (0.4-2.0) mmol/L Calcium (8.5-10.1) mg/dL 01/23/21 01/23/21 01/23/21 Range/Units 01:30 04:30 04:30 WBC 8.31 (3.98-10.04) K/mm3 RBC 3.50 L (3.98-5.22) M/mm3 Hgb 10.2 L D (11.2-15.7) gm/dl Hct 34.4 (34.1-44.9) % MCV 98.3 H (79.4-94.8) fl MCH 29.1 (25.6-32.2) pg MCHC 29.7 L (32.2-35.5) g/dl RDW Std Deviation 49.2 H (36.4-46.3) fL Plt Count 203 D (182-369) K/mm3 MPV 11.2 (9.4-12.3) fl Neut % (Auto) 65.3 (34.0-71.1) % Lymph % (Auto) 22.9 (19.3-51.7) % Gregory % (Auto) 6.1 (4.7-12.5) % Eos % (Auto) 4.9 (0.7-5.8) Baso % (Auto) 0.6 (0.1-1.2) % Neut # (Auto) 5.42 (1.56-6.13) K/mm3 Lymph # (Auto) 1.90 (1.18-3.74) K/mm3 Gregory # (Auto) 0.51 H (0.24-0.36) K/mm3 Eos # (Auto) 0.41 H (0.04-0.36) K/mm3 Baso # (Auto) 0.05 (0.01-0.08) K/mm3 Manual Slide Review Abnormal smear Sodium 148 H (136-145) mEq/L Potassium 3.0 L (3.5-5.1) mEq/L Chloride 113 H (98-107) mEq/L Carbon Dioxide 20 L (21-32) mEq/L Anion Gap 18.0 H (5-15) BUN 33 H D (7-18) mg/dL Creatinine 1.1 H (0.55-1.02) mg/dL Est Cr Clr Drug Dosing 30.53 mL/min Estimated GFR (MDRD) 47 (>60) mL/min BUN/Creatinine Ratio 30.0 H (14-18) Glucose 217 H (83-115) mg/dL Lactic Acid 2.4 H* (0.4-2.0) mmol/L Calcium 7.5 L D (8.5-10.1) mg/dL 01/23/21 01/23/21 Range/Units 04:30 07:30 WBC (3.98-10.04) K/mm3 RBC (3.98-5.22) M/mm3 Hgb (11.2-15.7) gm/dl Hct (34.1-44.9) % MCV (79.4-94.8) fl MCH (25.6-32.2) pg MCHC (32.2-35.5) g/dl RDW Std Deviation (36.4-46.3) fL Plt Count (182-369) K/mm3 MPV (9.4-12.3) fl Neut % (Auto) (34.0-71.1) % Lymph % (Auto) (19.3-51.7) % Gregory % (Auto) (4.7-12.5) % Eos % (Auto) (0.7-5.8) Baso % (Auto) (0.1-1.2) % Neut # (Auto) (1.56-6.13) K/mm3 Lymph # (Auto) (1.18-3.74) K/mm3 Gregory # (Auto) (0.24-0.36) K/mm3 Eos # (Auto) (0.04-0.36) K/mm3 Baso # (Auto) (0.01-0.08) K/mm3 Manual Slide Review Sodium (136-145) mEq/L Potassium (3.5-5.1) mEq/L Chloride (98-107) mEq/L Carbon Dioxide (21-32) mEq/L Anion Gap (5-15) BUN (7-18) mg/dL Creatinine (0.55-1.02) mg/dL Est Cr Clr Drug Dosing mL/min Estimated GFR (MDRD) (>60) mL/min BUN/Creatinine Ratio (14-18) Glucose (83-115) mg/dL Lactic Acid 2.3 H* 2.2 H* (0.4-2.0) mmol/L Calcium (8.5-10.1) mg/dL Jose Results Last 24 Hours: Microbiology 01/22/21 02:40 Aerobic Blood Culture - Preliminary Blood - Venous - Lab Draw NO GROWTH AFTER 1 DAY Anaerobic Blood Culture - Preliminary NO GROWTH AFTER 1 DAY 01/22/21 02:35 Aerobic Blood Culture - Preliminary Blood - Venous NO GROWTH AFTER 1 DAY Anaerobic Blood Culture - Preliminary NO GROWTH AFTER 1 DAY Med Orders - Current: Current Medications Acetaminophen (Acetaminophen 325 Mg Tab) 650 mg PO Q4H PRN PRN Reason: Fever Bisacodyl (Bisacodyl 5 Mg Tab) 10 mg PO DAILY PRN PRN Reason: Constipation Heparin Sodium (Porcine) (Heparin Sodium 5,000 Units/Ml Vial) 5,000 units SUBCUT Q12H [facility] [place] Last Admin: 01/23/21 09:21 Dose: 5,000 units Documented by: Ceftriaxone Sodium 1 gm/ (Sodium Chloride) 100 mls @ 200 mls/hr IV Q24H [facility] Last Admin: 01/23/21 09:20 Dose: 200 mls/hr Documented by: Azithromycin 500 mg/ Sodium (Chloride) 250 mls @ 250 mls/hr IV Q24H [facility] [place] Last Admin: 01/23/21 10:16 Dose: 250 mls/hr Documented by: Potassium Chloride 20 meq/ (Dextrose/Water) 1,010 mls @ 75 mls/hr IV Q13H [facility] [place] Last Admin: 01/23/21 08:36 Dose: 75 mls/hr Documented by: Ondansetron HCl (Ondansetron 4 Mg/2 Ml Sdv) 4 mg IVPUSH Q8H PRN PRN Reason: Nausea Oxycodone/Acetaminophen (Acetaminophen/Oxycodone 325-5 Mg Tab) 1 tab PO Q4H PRN PRN Reason: Pain (moderate 4-6) Pantoprazole Sodium (Pantoprazole 40 Mg Tab.Cr) 40 mg PO ACBREAKFAST [facility] [place] Polyethylene Glycol (Polyethylene Glycol 3350 Powder 17 Gm Packet) 17 gm PO DAILY [facility] [place] Last Admin: 01/23/21 08:20 Dose: Not Given Documented by: Saccharomyces Boulardii (Saccharomyces Boulardii (Probiotic) 250 Mg Cap) 250 mg PO BID [facility] [place] Last Admin: 01/23/21 08:40 Dose: Not Given Documented by: Senna/Docusate Sodium (Docusate Sodium/Sennosides 50-8.6 Mg Tab) 1 tab PO BID [facility] [place] Last Admin: 01/23/21 08:20 Dose: Not Given Documented by: Sodium Chloride (Sodium Chloride 0.9% 10 Ml Syringe) 10 ml FLUSH ONETIME PRN PRN Reason: Keep Vein Open Last Admin: 01/22/21 03:41 Dose: 10 ml Documented by: Discontinued Medications Sodium Chloride (Normal Saline) 500 mls @ 1,000 mls/hr IV .BOLUS ONE Stop: 01/22/21 03:05 Last Admin: 01/22/21 02:40 Dose: 1,000 mls/hr Documented by: Sodium Chloride (Normal Saline) 1,000 mls @ 999 mls/hr IV ONETIME ONE Stop: 01/22/21 04:09 Last Admin: 01/22/21 03:56 Dose: 999 mls/hr Documented by: Levofloxacin/Dextrose 750 mg/ (Premix) 150 mls @ 100 mls/hr IV ONETIME STA Stop: 01/22/21 04:49 Last Admin: 01/22/21 03:47 Dose: 100 mls/hr Documented by: Sodium Chloride (Normal Saline) 45 mls @ 40 mls/hr IV ASDIRECTED [facility] Last Admin: 01/22/21 03:41 Dose: 40 mls/hr Documented by: Sodium Chloride (Normal Saline) 1,000 mls @ 500 mls/hr IV ONETIME ONE Stop: 01/22/21 06:27 Last Admin: 01/22/21 05:31 Dose: 500 mls/hr Documented by: Norepinephrine Bitartrate 4 mg (/ Dextrose/Water) 250 mls @ 7.5 mls/hr IV T ITRATE [facility]; Protocol Dextrose/Water (Dextrose 5% In Water) 1,000 mls @ 75 mls/hr IV ASDIRECTED [facility] Last Admin: 01/22/21 09:59 Dose: 75 mls/hr Documented by: Dextrose/Water (Dextrose 5% In Water) 1,000 mls @ 100 mls/hr IV ASDIRECTED [facility] Last Admin: 01/22/21 21:08 Dose: 100 mls/hr Documented by: Potassium Chloride 20 meq/ (Dextrose/Water) 1,010 mls @ 75.75 mls/hr IV ASDIRECTED [facility] Iopamidol (Iopamidol 755 Mg/Ml 100 Ml Bottle) 100 ml IVPUSH ONETIME ONE Stop: 01/22/21 03:40 Last Admin: 01/22/21 03:41 Dose: 100 ml Documented by: - Exam General: No Acute Distress HEENT: Pupils Equal, Pupils Reactive Neck: No JVD Lungs: Normal Respiratory Effort Cardiovascular: Regular Rate, Regular Rhythm GI/Abdominal Exam: Normal Bowel Sounds, Soft, No Organomegaly Extremities: Normal Inspection, No Pedal Edema Skin: Warm, Dry, Intact Neurological: Other (Unable to complete because the patient does not answer any questions) Psy/Mental Status: Other Physical Findings Comments:: Unable to complete because patient does not answer any questions - Patient Data Lab Results Last 24 hrs: Laboratory Results - last 24 hr 01/22/21 01/22/21 01/22/21 Range/Units 13:18 15:57 18:45 WBC (3.98-10.04) K/mm3 RBC (3.98-5.22) M/mm3 Hgb (11.2-15.7) gm/dl Hct (34.1-44.9) % MCV (79.4-94.8) fl MCH (25.6-32.2) pg MCHC (32.2-35.5) g/dl RDW Std Deviation (36.4-46.3) fL Plt Count (182-369) K/mm3 MPV (9.4-12.3) fl Neut % (Auto) (34.0-71.1) % Lymph % (Auto) (19.3-51.7) % Gregory % (Auto) (4.7-12.5) % Eos % (Auto) (0.7-5.8) Baso % (Auto) (0.1-1.2) % Neut # (Auto) (1.56-6.13) K/mm3 Lymph # (Auto) (1.18-3.74) K/mm3 Gregory # (Auto) (0.24-0.36) K/mm3 Eos # (Auto) (0.04-0.36) K/mm3 Baso # (Auto) (0.01-0.08) K/mm3 Manual Slide Review Sodium (136-145) mEq/L Potassium (3.5-5.1) mEq/L Chloride (98-107) mEq/L Carbon Dioxide (21-32) mEq/L Anion Gap (5-15) BUN (7-18) mg/dL Creatinine (0.55-1.02) mg/dL Est Cr Clr Drug Dosing mL/min Estimated GFR (MDRD) (>60) mL/min BUN/Creatinine Ratio (14-18) Glucose (83-115) mg/dL Lactic Acid 2.4 H* 2.6 H* 2.4 H* (0.4-2.0) mmol/L Calcium (8.5-10.1) mg/dL 01/23/21 01/23/21 01/23/21 Range/Units 01:30 04:30 04:30 WBC 8.31 (3.98-10.04) K/mm3 RBC 3.50 L (3.98-5.22) M/mm3 Hgb 10.2 L D (11.2-15.7) gm/dl Hct 34.4 (34.1-44.9) % MCV 98.3 H (79.4-94.8) fl MCH 29.1 (25.6-32.2) pg MCHC 29.7 L (32.2-35.5) g/dl RDW Std Deviation 49.2 H (36.4-46.3) fL Plt Count 203 D (182-369) K/mm3 MPV 11.2 (9.4-12.3) fl Neut % (Auto) 65.3 (34.0-71.1) % Lymph % (Auto) 22.9 (19.3-51.7) % Gregory % (Auto) 6.1 (4.7-12.5) % Eos % (Auto) 4.9 (0.7-5.8) Baso % (Auto) 0.6 (0.1-1.2) % Neut # (Auto) 5.42 (1.56-6.13) K/mm3 Lymph # (Auto) 1.90 (1.18-3.74) K/mm3 Gregory # (Auto) 0.51 H (0.24-0.36) K/mm3 Eos # (Auto) 0.41 H (0.04-0.36) K/mm3 Baso # (Auto) 0.05 (0.01-0.08) K/mm3 Manual Slide Review Abnormal smear Sodium 148 H (136-145) mEq/L Potassium 3.0 L (3.5-5.1) mEq/L Chloride 113 H (98-107) mEq/L Carbon Dioxide 20 L (21-32) mEq/L Anion Gap 18.0 H (5-15) BUN 33 H D (7-18) mg/dL Creatinine 1.1 H (0.55-1.02) mg/dL Est Cr Clr Drug Dosing 30.53 mL/min Estimated GFR (MDRD) 47 (>60) mL/min BUN/Creatinine Ratio 30.0 H (14-18) Glucose 217 H (83-115) mg/dL Lactic Acid 2.4 H* (0.4-2.0) mmol/L Calcium 7.5 L D (8.5-10.1) mg/dL 01/23/21 01/23/21 Range/Units 04:30 07:30 WBC (3.98-10.04) K/mm3 RBC (3.98-5.22) M/mm3 Hgb (11.2-15.7) gm/dl Hct (34.1-44.9) % MCV (79.4-94.8) fl MCH (25.6-32.2) pg MCHC (32.2-35.5) g/dl RDW Std Deviation (36.4-46.3) fL Plt Count (182-369) K/mm3 MPV (9.4-12.3) fl Neut % (Auto) (34.0-71.1) % Lymph % (Auto) (19.3-51.7) % Gregory % (Auto) (4.7-12.5) % Eos % (Auto) (0.7-5.8) Baso % (Auto) (0.1-1.2) % Neut # (Auto) (1.56-6.13) K/mm3 Lymph # (Auto) (1.18-3.74) K/mm3 Gregory # (Auto) (0.24-0.36) K/mm3 Eos # (Auto) (0.04-0.36) K/mm3 Baso # (Auto) (0.01-0.08) K/mm3 Manual Slide Review Sodium (136-145) mEq/L Potassium (3.5-5.1) mEq/L Chloride (98-107) mEq/L Carbon Dioxide (21-32) mEq/L Anion Gap (5-15) BUN (7-18) mg/dL Creatinine (0.55-1.02) mg/dL Est Cr Clr Drug Dosing mL/min Estimated GFR (MDRD) (>60) mL/min BUN/Creatinine Ratio (14-18) Glucose (83-115) mg/dL Lactic Acid 2.3 H* 2.2 H* (0.4-2.0) mmol/L Calcium (8.5-10.1) mg/dL Result Diagrams: 01/23/21 04:30 01/23/21 04:30 Jose Results Last 24 hrs: Microbiology 01/22/21 02:40 Aerobic Blood Culture - Preliminary Blood - Venous - Lab Draw NO GROWTH AFTER 1 DAY Anaerobic Blood Culture - Preliminary NO GROWTH AFTER 1 DAY 01/22/21 02:35 Aerobic Blood Culture - Preliminary Blood - Venous NO GROWTH AFTER 1 DAY Anaerobic Blood Culture - Preliminary NO GROWTH AFTER 1 DAY Sepsis Event Note - Evaluation Sepsis Screening Result: No Definite Risk - Focused Exam Vital Signs: Vital Signs Temp Pulse Resp BP BP Pulse Ox Pulse Ox 01/23/21 08:03 35.4 C L 45 L 14 112/37 L 95 01/23/21 07:58 95 01/23/21 04:39 36.6 C 89 13 101/48 L 97 01/23/21 00:58 36.7 C 72 12 108/54 L 98 - Problem List Review Problem List Initiated/Reviewed/Updated: Yes - My Orders Last 24 Hours: My Active Orders 01/23/21 07:38 bisacodyL [Dulcolax] 10 mg PO DAILY PRN 01/23/21 07:52 Venous Doppler Lwr Ext Bi [US] Routine 01/23/21 08:45 Potassium Chloride 20 meq Dextrose 5% in Water 1,000 ml IV Q13H 01/23/21 09:00 Docusate Sodium/Sennosides [Senna Plus] 1 tab PO BID Saccharomyces Boulardii [Florastor] 250 mg PO BID polyethylene glycoL 3350 [MiraLAX] 17 gm PO DAILY 01/23/21 09:16 Patient Status [ADT] Routine 01/23/21 13:30 LACTIC ACID [CHEM] Routine 01/24/21 05:00 CBC WITH AUTO DIFF [HEME] DAILY COMPREHENSIVE METABOLIC PN,CMP [CHEM] DAILY 01/24/21 06:00 Pantoprazole [ProTONIX] 40 mg PO ACBREAKFAST 01/25/21 05:00 CBC WITH AUTO DIFF [HEME] DAILY COMPREHENSIVE METABOLIC PN,CMP [CHEM] DAILY 01/26/21 05:00 CBC WITH AUTO DIFF [HEME] DAILY COMPREHENSIVE METABOLIC PN,CMP [CHEM] DAILY 01/27/21 05:00 CBC WITH AUTO DIFF [HEME] DAILY COMPREHENSIVE METABOLIC PN,CMP [CHEM] DAILY 01/28/21 05:00 CBC WITH AUTO DIFF [HEME] DAILY COMPREHENSIVE METABOLIC PN,CMP [CHEM] DAILY - Plan Plan:: Assessment: Sepsis -Suspected Urinary Source: 3+ Leuk esterase, too numerous to count white blood cells, positive bacteria -Patchy areas of increased density within the right upper lobe and right lower lung possibly representing pneumonia, ? aspiration -Leukocytosis, elevation of lactic Acid -Negative COVID-19 -Recent admission on 12/22/2020 for complicated urinary tract infection at which time patient was started on Rocephin. It appears patient had both Aerococcus as well as E. coli in the urine, both were sensitive to Rocephin. In 2017 patient had a urine culture for E. coli that was resistant to fluoroquinolones Acute Hypoxic Respiratory Failure -PO2 74, O2% 94.5 on ABG Hypernatremia -Na 152 on admission, suspect secondary to intravascular volume depletion MATT -BUN 59, Cr 1.8 on admission -CTA in the ED Elevated proBNP -1474 Transaminitis -Mild AST 47, ALT 66 on admission -Normal Alk/Tbili -No evidence of obstruction/acue abril Elevated D dimer -1.18, CTA in ED no PE Advanced Dementia -Baseline A/O x 1 Plan: - Daughter Tali (POA) would like to pursue palliative care for her. No tube feeding. No blood tests and imaging tests. No aggressive treatment. But she would like to continue antibiotic, IV fluid and oxygen. -Continue Rocephin and Azithromycin -D5W+KCl 20mEq @ 75cc/hr -continue oxygen -SCDs -Heparin subq bid, SCD for DVT prophylaxis -DNR/DNI/palliative care Deposition: take away worker/case work aide help with initiating palliative care
[2021-01-24] MEDS: Pantoprazole 40 MG Tab.CR PO SCH (06:27)
[2021-01-24] MEDS: Saccharomyces Boulardii (Probiotic) 250 MG Cap PO SCH ×2 (09:51→21:54)
[2021-01-24] MEDS: Heparin Sodium 5,000 Units/ML Vial SUBCUT SCH ×2 (10:00→21:54)
[2021-01-24] MEDS: Polyethylene Glycol 3350 Powder 17 GM Packet PO SCH (10:01)
[2021-01-24] MEDS: cefTRIAXone 1 GM in Sodium Chloride 0.9% 100 ML IV SCH (10:03)
[2021-01-24] MEDS: Azithromycin 500 MG in Sodium Chloride 0.9% 250 ML IV SCH (10:43)
[2021-01-24] MEDS: Potassium Chloride 20 MEQ in Dextrose 5% in Water 1,000 ML IV SCH ×2 (12:11)
--- NOTE | 2021-01-24 14:21 | PCM.PN ---
- General Info Date of Service: 01/24/21 Admission Dx/Problem (Free Text): Admission Diagnosis/Problem Admission Diagnosis/Problem Pyelonephritis Subjective Update: Patient is a 89-year-old female with advanced dementia who resides in a detention presented to the emergency department after having a bout of hypotension at the nursing facility. Patient is nonverbal and does not answer any questions. She seems to be comfortable. She is now on palliative care When I saw this patient this morning, RN was feeding her. - Review of Systems Systems Review Comment:: Unable to obtain because patient does not answer any questions. - Patient Data Vitals - Most Recent: Last Vital Signs Temp 36.0 C L 01/24/21 11:25 Pulse 71 01/24/21 11:25 Resp 14 01/24/21 11:25 BP 95/55 L 01/24/21 11:25 Pulse Ox 94 L 01/24/21 11:25 Weight - Most Recent: 58.695 kg I&O - Last 24 Hours: Intake & Output 01/23/21 01/24/21 01/24/21 22:59 06:59 14:59 Intake Total 816 938 120 Balance 816 938 120 Jose Results Last 24 Hours: Microbiology 01/22/21 02:40 Aerobic Blood Culture - Preliminary Blood - Venous - Lab Draw NO GROWTH AFTER 2 DAYS Anaerobic Blood Culture - Preliminary NO GROWTH AFTER 2 DAYS 01/22/21 02:35 Aerobic Blood Culture - Preliminary Blood - Venous NO GROWTH AFTER 2 DAYS Anaerobic Blood Culture - Preliminary NO GROWTH AFTER 2 DAYS Med Orders - Current: Current Medications Acetaminophen (Acetaminophen 325 Mg Tab) 650 mg PO Q4H PRN PRN Reason: Fever Bisacodyl (Bisacodyl 5 Mg Tab) 10 mg PO DAILY PRN PRN Reason: Constipation Heparin Sodium (Porcine) (Heparin Sodium 5,000 Units/Ml Vial) 5,000 units GUPTA BCUT Q12H [facility] Last Admin: 01/24/21 10:00 Dose: 5,000 units Documented by: Ceftriaxone Sodium 1 gm/ (Sodium Chloride) 100 mls @ 200 mls/hr IV Q24H [facility] Last Admin: 01/24/21 10:03 Dose: 200 mls/hr Documented by: Azithromycin 500 mg/ Sodium (Chloride) 250 mls @ 250 mls/hr IV Q24H [facility] Last Admin: 01/24/21 10:43 Dose: 250 mls/hr Documented by: Potassium Chloride 20 meq/ (Dextrose/Water) 1,010 mls @ 75 mls/hr IV Q13H [facility] Last Admin: 01/24/21 12:11 Dose: 75 mls/hr Documented by: Ondansetron HCl (Ondansetron 4 Mg/2 Ml Sdv) 4 mg IVPUSH Q8H PRN PRN Reason: Nausea Oxycodone/Acetaminophen (Acetaminophen/Oxycodone 325-5 Mg Tab) 1 tab PO Q4H PRN PRN Reason: Pain (moderate 4-6) Pantoprazole Sodium (Pantoprazole 40 Mg Tab.Cr) 40 mg PO ACBREAKFAST [facility] Last Admin: 01/24/21 06:27 Dose: Not Given Documented by: Polyethylene Glycol (Polyethylene Glycol 3350 Powder 17 Gm Packet) 17 gm PO DAILY [facility] Last Admin: 01/24/21 10:01 Dose: 17 gm Documented by: Saccharomyces Boulardii (Saccharomyces Boulardii (Probiotic) 250 Mg Cap) 250 mg PO BID [facility] Last Admin: 01/24/21 09:51 Dose: 250 mg Documented by: Senna/Docusate Sodium (Docusate Sodium/Sennosides 50-8.6 Mg Tab) 1 tab PO BID [facility] Last Admin: 01/24/21 09:51 Dose: 1 tab Documented by: Sodium Chloride (Sodium Chloride 0.9% 10 Ml Syringe) 10 ml FLUSH ONETIME PRN PRN Reason: Keep Vein Open Last Admin: 01/22/21 03:41 Dose: 10 ml Documented by: Discontinued Medications Sodium Chloride (Normal Saline) 500 mls @ 1,000 mls/hr IV .BOLUS ONE Stop: 01/22/21 03:05 Last Admin: 01/22/21 02:40 Dose: 1,000 mls/hr Documented by: Sodium Chloride (Normal Saline) 1,000 mls @ 999 mls/hr IV ONETIME ONE Stop: 01/22/21 04:09 Last Admin: 01/22/21 03:56 Dose: 999 mls/hr Documented by: Levofloxacin/Dextrose 750 mg/ (Premix) 150 mls @ 100 mls/hr IV ONETIME STA Stop: 01/22/21 04:49 Last Admin: 01/22/21 03:47 Dose: 100 mls/hr Documented by: Sodium Chloride (Normal Saline) 45 mls @ 40 mls/hr IV ASDIRECTED [facility] Last Admin: 01/22/21 03:41 Dose: 40 mls/hr Documented by: Sodium Chloride (Normal Saline) 1,000 mls @ 500 mls/hr IV ONETIME ONE Stop: 01/22/21 06:27 Last Admin: 01/22/21 05:31 Dose: 500 mls/hr Documented by: Norepinephrine Bitartrate 4 mg (/ Dextrose/Water) 250 mls @ 7.5 mls/hr IV TITRA TE [facility]; Protocol Dextrose/Water (Dextrose 5% In Water) 1,000 mls @ 75 mls/hr IV ASDIRECTED [facility] Last Admin: 01/22/21 09:59 Dose: 75 mls/hr Documented by: Dextrose/Water (Dextrose 5% In Water) 1,000 mls @ 100 mls/hr IV ASDIRECTED [facility] Last Admin: 01/22/21 21:08 Dose: 100 mls/hr Documented by: Potassium Chloride 20 meq/ (Dextrose/Water) 1,010 mls @ 75.75 mls/hr IV ASDIRECTED [facility] Iopamidol (Iopamidol 755 Mg/Ml 100 Ml Bottle) 100 ml IVPUSH ONETIME ONE Stop: 01/22/21 03:40 Last Admin: 01/22/21 03:41 Dose: 100 ml Documented by: - Exam Physical Findings Comments:: General: No Acute Distress HEENT: Pupils Equal, Pupils Reactive Neck: No JVD Lungs: Normal Respiratory Effort Cardiovascular: Regular Rate, Regular Rhythm GI/Abdominal Exam: Normal Bowel Sounds, Soft, No Organomegaly Extremities: Normal Inspection, No Pedal Edema Skin: Warm, Dry, Intact Neurological: Other (Unable to complete because the patient does not answer any questions) Psy/Mental Status: Other Physical Findings Comments: Unable to complete because patient does not answer any questions - Patient Data Result Diagrams: 01/23/21 04:30 01/23/21 04:30 Jose Results Last 24 hrs: Microbiology 01/22/21 02:40 Aerobic Blood Culture - Preliminary Blood - Venous - Lab Draw NO GROWTH AFTER 2 DAYS Anaerobic Blood Culture - Preliminary NO GROWTH AFTER 2 DAYS 01/22/21 02:35 Aerobic Blood Culture - Preliminary Blood - Venous NO GROWTH AFTER 2 DAYS Anaerobic Blood Culture - Preliminary NO GROWTH AFTER 2 DAYS Sepsis Event Note - Evaluation Sepsis Screening Result: No Definite Risk - Focused Exam Vital Signs: Vital Signs Temp Pulse Resp BP BP Pulse Ox Pulse Ox 01/24/21 11:25 36.0 C L 71 14 95/55 L 94 L 01/24/21 08:07 93 L 01/24/21 07:20 36.2 C 62 14 105/67 94 L 01/24/21 06:26 95 01/24/21 04:11 36.9 C 57 L 13 104/52 L 100 - Problem List Review Problem List Initiated/Reviewed/Updated: Yes - My Orders Last 24 Hours: My Active Orders 01/24/21 06:00 Pantoprazole [ProTONIX] 40 mg PO ACBREAKFAST 01/24/21 09:05 Patient Status [ADT] Routine 01/24/21 12:26 Bedrest [RC] ASDIRECTED - Plan Plan:: Assessment: Sepsis -Suspected Urinary Source: 3+ Leuk esterase, too numerous to count white blood cells, positive bacteria -Patchy areas of increased density within the right upper lobe and right lower lung possibly representing pneumonia, ? aspiration -Leukocytosis, elevation of lactic Acid -Negative COVID-19 -Recent admission on 12/22/2020 for complicated urinary tract infection at which time patient was started on Rocephin. It appears patient had both Aerococcus as well as E. coli in the urine, both were sensitive to Rocephin. In 2017 patient had a urine culture for E. coli that was resistant to fluoroquinolones Acute Hypoxic Respiratory Failure -PO2 74, O2% 94.5 on ABG Hypernatremia -Na 152 on admission, suspect secondary to intravascular volume depletion MATT -BUN 59, Cr 1.8 on admission -CTA in the ED Elevated proBNP -1474 Transaminitis -Mild AST 47, ALT 66 on admission -Normal Alk/Tbili -No evidence of obstruction/acue abril Elevated D dimer -1.18, CTA in ED no PE Advanced Dementia -Baseline A/O x 1 Plan: -Continue palliative care. No tube feeding. No blood tests and imaging tests. No aggressive treatment. -continue Rocephin and Azithromycin, IV fluid and oxygen if needed. -D5W+KCl 20mEq @ 75cc/hr -SCDs -Heparin subq bid, SCD for DVT prophylaxis -DNR/DNI/palliative care Deposition: combination worker/case assistant help with placement for palliative care tomorrow
[2021-01-25] MEDS: Potassium Chloride 20 MEQ in Dextrose 5% in Water 1,000 ML IV SCH ×4 (02:20→14:52)
[2021-01-25] MEDS: Pantoprazole 40 MG Tab.CR PO SCH (06:54)
[2021-01-25] MEDS: cefTRIAXone 1 GM in Sodium Chloride 0.9% 100 ML IV SCH (09:10)
[2021-01-25] MEDS: Polyethylene Glycol 3350 Powder 17 GM Packet PO SCH (09:15)
[2021-01-25] MEDS: Heparin Sodium 5,000 Units/ML Vial SUBCUT SCH (09:15)
[2021-01-25] MEDS: Saccharomyces Boulardii (Probiotic) 250 MG Cap PO SCH (09:15)
[2021-01-25] MEDS: Azithromycin 500 MG in Sodium Chloride 0.9% 250 ML IV SCH (09:42)
[2021-01-25 12:03] VITALS: BP 116/75; PULSE 62
--- NOTE | 2021-01-25 13:35 | PCM.DCSUM1 ---
Discharge Summary - Hospital Course Free Text/Narrative:: Assessment: Sepsis -Suspected Urinary Source: 3+ Leuk esterase, too numerous to count white blood cells, positive bacteria -Patchy areas of increased density within the right upper lobe and right lower lung possibly representing pneumonia, ? aspiration -Leukocytosis, elevation of lactic Acid -Negative COVID-19 -Recent admission on 12/22/2020 for complicated urinary tract infection at which time patient was started on Rocephin. It appears patient had both Aerococcus as well as E. coli in the urine, both were sensitive to Rocephin. In 2017 patient had a urine culture for E. coli that was resistant to fluoroquinolones Acute Hypoxic Respiratory Failure -PO2 74, O2% 94.5 on ABG -She is now on RM Hypernatremia -Na 152 on admission, suspect secondary to intravascular volume depletion MATT -BUN 59, Cr 1.8 on admission -CTA in the ED Elevated proBNP -1474 Transaminitis -Mild AST 47, ALT 66 on admission -Normal Alk/Tbili -No evidence of obstruction/acue abril Elevated D dimer -1.18, CTA in ED no PE Advanced Dementia -Baseline A/O x 1 Plan: -Continue palliative care. No tube feeding. No blood tests and imaging tests. No aggressive treatment. She will be discharged to SNF to continue palliative care. -will discontinue continue IV Rocephin and Azithromycin and discharged on Keflex and p.o. azithromycin. Patient is nonverbal. She is now on room air. Vital signs are stable and acceptable. She will be discharged to SNF to continue palliative care. Her Metformin is on hold because we are not able to monitor her renal function. Follow with PCP and palliative care team within 3 days. Call PCP and palliative care team for medical issues. She needs to be fed for 3 meals/day. Diagnosis: Stroke: No - Discharge Data Discharge Date: 01/25/21 Discharge Disposition: DC/Tfer to SNF 03 Condition: Poor - Referral to Home Health Primary Care Physician: Mauricio Lauren MD - Patient Summary/Data Consults: Consultations 01/25/21 09:03 Consult to Hospice [CONS] Routine Consult to Palliative Care [CONS] Routine Recommended Follow-up Testing/Procedures: Follow with PCP and palliative care team within 3 days. Call PCP and palliative care team for medical issues. - Patient Instructions Diet: Diabetic Diet Activity: As Tolerated Driving: Do Not Drive - Discharge Plan *PRESCRIPTION DRUG MONITORING PROGRAM REVIEWED*: Not Applicable *COPY OF PRESCRIPTION DRUG MONITORING REPORT IN PATIENT RYNE: Not Applicable Prescriptions/Med Rec: Azithromycin 500 mg PO DAILY #2 tablet cephALEXin [Keflex] 500 mg PO BID #6 cap Acetaminophen/oxyCODONE [Percocet 325-5 MG] 1 tab PO Q6HR PRN #10 tablet PRN Reason: Pain (Moderate 4-6) Home Medications: Home Meds Docusate Sodium/Sennosides [Senna Plus] 1 tab PO BID 12/22/20 [History] Lactobacillus Acidophilus/Fos [Acidophilus Probiotic Tablet] 1 tab PO BID 12/22/20 [History] Magnesium Hydroxide [Milk of Magnesia] 30 ml PO DAILY PRN 12/22/20 [History] Memantine [Namenda Xr] 14 mg PO DAILY 12/22/20 [History] Omeprazole 20 mg PO ACBREAKFAST 12/22/20 [History] bisacodyL [Dulcolax] 10 mg RECTAL DAILY PRN 12/22/20 [History] polyethylene glycoL 3350 [MiraLAX] 17 gm PO DAILY 12/22/20 [History] bisacodyL [Bisacodyl] 10 mg PO DAILY PRN 01/22/21 [History] Acetaminophen/oxyCODONE [Percocet 325-5 MG] 1 tab PO Q6HR PRN #10 tablet 01/25/21 [Rx] Azithromycin 500 mg PO DAILY #2 tablet 01/25/21 [Rx] cephALEXin [Keflex] 500 mg PO BID #6 cap 01/25/21 [Rx] Forms: ED Department Discharge Referrals: Mauricio Lauren MD [Primary Care Provider] - 02/04/21 2:30 pm see, palliative care within 3 days [Other] - Discharge Summary/Plan Comment DC Time >30 min.: Yes - General Info Date of Service: 01/25/21 Admission Dx/Problem (Free Text: Admission Diagnosis/Problem Admission Diagnosis/Problem Pyelonephritis Subjective Update: Patient is a 89-year-old female with advanced dementia who resides in a skilled nursing presented to the emergency department after having a bout of hypotension at the nursing facility. Patient is nonverbal and does not answer any questions. She seems to be comfortable. She is now on palliative care - Review of Systems Systems Review Comment: Unable to obtain because patient does not answer any questions. - Patient Data Vitals - Most Recent: Last Vital Signs Temp 36.2 C 01/25/21 11:48 Pulse 62 01/25/21 11:48 Resp 14 01/25/21 11:48 BP 116/75 01/25/21 11:48 Pulse Ox 95 01/25/21 11:48 Weight - Most Recent: 59.647 kg I&O - Last 24 hours: Intake & Output 01/24/21 01/25/21 01/25/21 22:59 06:59 14:59 Intake Total 1202 1308 Balance 1202 1308 YASEMIN Results - Last 24 hrs: Microbiology 01/22/21 02:40 Aerobic Blood Culture - Preliminary Blood - Venous - Lab Draw NO GROWTH AFTER 3 DAYS Anaerobic Blood Culture - Preliminary NO GROWTH AFTER 3 DAYS 01/22/21 02:35 Aerobic Blood Culture - Preliminary Blood - Venous NO GROWTH AFTER 3 DAYS Anaerobic Blood Culture - Preliminary NO GROWTH AFTER 3 DAYS Med Orders - Current: Current Medications Acetaminophen (Acetaminophen 325 Mg Tab) 650 mg PO Q4H PRN PRN Reason: Fever Bisacodyl (Bisacodyl 5 Mg Tab) 10 mg PO DAILY PRN PRN Reason: Constipation Heparin Sodium (Porcine) (Heparin Sodium 5,000 Units/Ml Vial) 5,000 units SUBCUT Q12H [facility] Last Admin: 01/25/21 09:15 Dose: 5,000 units Documented by: Ceftriaxone Sodium 1 gm/ (Sodium Chloride) 100 mls @ 200 mls/hr IV Q24H [facility] Last Admin: 01/25/21 09:10 Dose: 200 mls/hr Documented by: Azithromycin 500 mg/ Sodium (Chloride) 250 mls @ 250 mls/hr IV Q24H [facility] Last Admin: 01/25/21 09:42 Dose: 250 mls/hr Documented by: Potassium Chloride 20 meq/ (Dextrose/Water) 1,010 mls @ 75 mls/hr IV Q13H [facility] Last Admin: 01/25/21 02:20 Dose: 75 mls/hr Documented by: Ondansetron HCl (Ondansetron 4 Mg/2 Ml Sdv) 4 mg IVPUSH Q8H PRN PRN Reason: Nausea Oxycodone/Acetaminophen (Acetaminophen/Oxycodone 325-5 Mg Tab) 1 tab PO Q4H PRN PRN Reason: Pain (moderate 4-6) Pantoprazole Sodium (Pantoprazole 40 Mg Tab.Cr) 40 mg PO ACBREAKFAST [facility] Last Admin: 01/25/21 06:54 Dose: 40 mg Documented by: Polyethylene Glycol (Polyethylene Glycol 3350 Powder 17 Gm Packet) 17 gm PO DAILY [facility] Last Admin: 01/25/21 09:15 Dose: 17 gm Documented by: Saccharomyces Boulardii (Saccharomyces Boulardii (Probiotic) 250 Mg Cap) 250 mg PO BID [facility] Last Admin: 01/25/21 09:15 Dose: 250 mg Documented by: Senna/Docusate Sodium (Docusate Sodium/Sennosides 50-8.6 Mg Tab) 1 tab PO BID [facility] Last Admin: 01/25/21 09:15 Dose: 1 tab Documented by: Sodium Chloride (Sodium Chloride 0.9% 10 Ml Syringe) 10 ml FLUSH ONETIME PRN PRN Reason: Keep Vein Open Last Admin: 01/22/21 03:41 Dose: 10 ml Documented by: Discontinued Medications Sodium Chloride (Normal Saline) 500 mls @ 1,000 mls/hr IV .BOLUS ONE Stop: 01/22/21 03:05 Last Admin: 01/22/21 02:40 Dose: 1,000 mls/hr Documented by: Sodium Chloride (Normal Saline) 1,000 mls @ 999 mls/hr IV ONETIME ONE Stop: 01/22/21 04:09 Last Admin: 01/22/21 03:56 Dose: 999 mls/hr Documented by: Levofloxacin/Dextrose 750 mg/ (Premix) 150 mls @ 100 mls/hr IV ONETIME STA Stop: 01/22/21 04:49 Last Admin: 01/22/21 03:47 Dose: 100 mls/hr Documented by: Sodium Chloride (Normal Saline) 45 mls @ 40 mls/hr IV ASDIRECTED [facility] Last Admin: 01/22/21 03:41 Dose: 40 mls/hr Documented by: Sodium Chloride (Normal Saline) 1,000 mls @ 500 mls/hr IV ONETIME ONE Stop: 01/22/21 06:27 Last Admin: 01/22/21 05:31 Dose: 500 mls/hr Documented by: Norepinephrine Bitartrate 4 mg (/ Dextrose/Water) 250 mls @ 7.5 mls/hr IV TITRATE ANK[facility]; Protocol Dextrose/Water (Dextrose 5% In Water) 1,000 mls @ 75 mls/hr IV ASDIRECTED [facility] Last Admin: 01/22/21 09:59 Dose: 75 mls/hr Documented by: Dextrose/Water (Dextrose 5% In Water) 1,000 mls @ 100 mls/hr IV ASDIRECTED [facility] Last Admin: 01/22/21 21:08 Dose: 100 mls/hr Documented by: Potassium Chloride 20 meq/ (Dextrose/Water) 1,010 mls @ 75.75 mls/hr IV ASDIRECTED [facility] Iopamidol (Iopamidol 755 Mg/Ml 100 Ml Bottle) 100 ml IVPUSH ONETIME ONE Stop: 01/22/21 03:40 Last Admin: 01/22/21 03:41 Dose: 100 ml Documented by: - Exam Physical Findings Comments:: General: No Acute Distress HEENT: Pupils Equal, Pupils Reactive Neck: No JVD Lungs: Normal Respiratory Effort Cardiovascular: Regular Rate, Regular Rhythm GI/Abdominal Exam: Normal Bowel Sounds, Soft, No Organomegaly Extremities: Normal Inspection, No Pedal Edema Skin: Warm, Dry, Intact Neurological: Other (Unable to complete because the patient does not answer any questions) Psy/Mental Status: Other Physical Findings Comments: Unable to complete because patient does not answer any questions
== END 2021-01-25 14:50 | DRG 871 ==
LOC: JD.ED 01:39 → JD.MS 06:49
PROVIDERS: ADMIT Internal Medicine; ATTEND Internal Medicine
DX: N12 Tubulo-interstitial nephritis, not specified as acute or chronic (principal); E86.0 Dehydration; A41.9 Sepsis, unspecified organism; R73.9 Hyperglycemia, unspecified; H35.30 Unspecified macular degeneration; J96.01 Acute respiratory failure with hypoxia; J69.0 Pneumonitis due to inhalation of food and vomit; E87.0 Hyperosmolality and hypernatremia; N17.9 Acute kidney failure, unspecified; R74.8 Abnormal levels of other serum enzymes; R79.1 Abnormal coagulation profile; F03.90 Unspecified dementia, unspecified severity, without behavioral disturbance, psychotic disturbance, mood disturbance, and anxiety; Z79.899 Other long term (current) drug therapy; Z88.5 Allergy status to narcotic agent; Z88.8 Allergy status to other drugs, medicaments and biological substances; Z79.84 Long term (current) use of oral hypoglycemic drugs; K21.9 Gastro-esophageal reflux disease without esophagitis; I12.9 Hypertensive chronic kidney disease with stage 1 through stage 4 chronic kidney disease, or unspecified chronic kidney disease; N18.9 Chronic kidney disease, unspecified; F41.9 Anxiety disorder, unspecified; F32.9 Major depressive disorder, single episode, unspecified; E55.9 Vitamin D deficiency, unspecified; Z90.12 Acquired absence of left breast and nipple; Z20.822 Contact with and (suspected) exposure to COVID-19
CPT/HCPCS: 36415; 36600; 70450; 71045; 71275; 80053; 81001; 82009; 82803; 83605 ×2; 83735; 83880; 84443; 84484; 85007; 85027; 85379; 85610; 85730; 87040 ×2; 93005; 96365; 96366; 99285; J1956; J7030 ×3; Q9967; U0002; 80048; 85025; 87641; 93010; 94760; 99222; 99232; 99239; A9270-GY; J0456; J0696; J1644; J3480; J7050; J7060